=== PATIENT | male | born 1960 | race Caucasian/White ===

== ENCOUNTER 2022-07-31 10:18 | Emergency (ER) | payer OTHER, SELFPAY ==
[2022-07-31] VITALS (8 sets, daily range): BP systolic 122–147; BP diastolic 63–89; PULSE 69–121; RESP 17–24; TEMP 36.8; O2SAT 96–99; BMI 25.1; BMI 25.4
--- NOTE | 2022-07-31 11:10 | EXP.UTC ---
Discharge Plan Disposition Patient Disposition: Home, Self-Care Condition: Good Prescriptions Prescriptions: New hydrocodone-acetaminophen 5-325 mg tablet 1 tab PO Q6H PRN (Reason: pain) Qty: 20 0RF hydrocodone-acetaminophen 5-325 mg tablet 1 tab PO Q8H PRN (Reason: pain) Qty: 20 0RF Referrals Follow up/Referrals: Ken Bhatia MD [Emergency Provider] - See instructions Meeta Rao MD [Physician] - See instructions Activity Restrictions/Add. Instructions Additional Instructions/Restrictions: Return for worsening shortness of air or other concerns. Clinical Impressions Clinical Impression: Lung mass Discharge ED Provider: Ken Bhatia [facility] [place] <Olya Atwood APRN - Last Filed: 07/31/22 20:19> General Chief complaint: Chest Pain Stated complaint: Lung pain when breathing SOA Mode of Arrival: Ambulatory Source of Information: Patient Limitations: No Limitations Time Seen by Provider: 07/31/22 11:11 Description of Symptoms (Recalled from Triage Doc. by RN): PATIENT C/O LUNG PAIN WITH TAKING A DEEP BREATH, SOA, AND COUGH HEENT Symptoms (Recalled from RN notes): No Resp Symptoms (Recalled from RN notes): Yes Skin Symptoms (Recalled from RN notes): No MS Symptoms (Recalled from RN notes): No Functional Status (Recalled from RN notes): WNL History of Present Illness Provider Complaint: Patient states that he thinks he has been having lung pain on and off for a couple weeks on the left side of chest under his breast area States that he is an everyday smoker and has a little cough but cough no worse than normal and not coughing and denies pain with cough, States that he has been feeling more fatigued since it started and getting SOA at times States that he thinks it hurts worse when he takes a deep breath but not every time States that the pain was worse last night and kept him up most of the night Related Data Previous Rx's Medication Instructions Recorded hydrocodone 5 mg-acetaminophen 325 1 tab PO Q6H PRN pain #20 tabs 07/31/22 mg tablet hydrocodone 5 mg-acetaminophen 325 1 tab PO Q8H PRN pain #20 tabs 07/31/22 mg tablet Allergies Allergy/AdvReac Type Severity Reaction Status Date / Time No Known Allergies Allergy Verified 07/31/22 10:53 Worker's Comp Is this a Worker's Comp case?: No PFSH <Olya Atwood APRN - Last Filed: 07/31/22 20:19> PFSH Disclaimer: The information contained in this section may have been updated after the patient was seen, as this information can be updated by other users. Social History (Updated 07/31/22 @ 13:52 by Ken Bhatia MD) Smoking Status: Current every day smoker alcohol intake: never current occupational status: unemployed Travel in the last 8 weeks: None <Olya Atwood APRN - Last Filed: 07/31/22 20:19> ROS Obtained: Yes All systems reviewed & no additional complaints except as documented and Yes Systems reviewed as appropriate & no additional complaints except as documented Constitutional Constitutional: Reports system reviewed and no additional complaints, except as documented and Reports as per HPI <Ken Bhatia MD - Last Filed: 07/31/22 14:00> General General appearance: alert and in no apparent distress Respiratory Respiratory exam: Present normal lung sounds bilaterally Cardiovascular Cardiovascular exam: Present regular rate and normal rhythm Neurological Exam Neurological exam: Present alert and oriented X3 Medical Decision Making <Olya Atwood APRN - Last Filed: 07/31/22 20:19> Vital Signs: 07/31/22 10:45 Temperature 98.3 F Temperature Source Oral Pulse Rate [Left Brachial] 121 H Respiratory Rate 24 Blood Pressure [Left Arm] 138/80 Blood Pressure Mean [Left Arm] 99 Blood Pressure Source [Left Arm] Automatic Cuff Blood Pressure Position [Left Arm] Sitting 02 Sat by Pulse Oximetry 99 Oxygen Delivery Method Room Air Lab Data Result diagrams: 07/31/22 11:25 07/31/22 11:25 Or
--- NOTE | 2022-07-31 11:19 | XR_ITS ---
FINAL REPORT CLINICAL HISTORY: soa FINDINGS: A single PA view of the chest was obtained. There is no prior exam for comparison. The cardiac and mediastinal silhouettes are within normal limits. There is a pleural based left upper lobe mass measuring at least 11.5 cm. There is abnormal left hilar contour consistent with lymphadenopathy. Note is made of emphysema. There is no effusion or pneumothorax. No acute osseous abnormality is identified. IMPRESSION: Left upper lobe mass with left hilar lymphadenopathy. Reviewed, Interpreted and Dictated by Samia Parker MD Transcribed by Anastacia Lara Authenticated and [facility]
--- NOTE | 2022-07-31 11:21 | ECG_ITS ---
APPROVED REPORT Exam: Resting ECG HR:108 bpm ECG Measurements Heart Rate 108 AXES NH 154 P 66 QRSd 94 QRS 77 QT 305 T 66 QTc 369 Conclusion SINUS TACHYCARDIA ABNORMAL RHYTHM ECG UNCONFIRMED REPORT Electronically signed by : Gerson Xiao MD 07/31/2022 20:27:39
--- NOTE | 2022-07-31 11:23 | HMH.EDGENADL ---
Discharge Plan Disposition Patient Disposition: Home, Self-Care Condition: Good Prescriptions Prescriptions: New hydrocodone-acetaminophen 5-325 mg tablet 1 tab PO Q6H PRN (Reason: pain) Qty: 20 0RF hydrocodone-acetaminophen 5-325 mg tablet 1 tab PO Q8H PRN (Reason: pain) Qty: 20 0RF Referrals Follow up/Referrals: Ken Bhatia MD [Emergency Provider] - See instructions Meeta Rao MD [Physician] - See instructions Activity Restrictions/Add. Instructions Additional Instructions/Restrictions: Return for worsening shortness of air or other concerns. Clinical Impressions Clinical Impression: Lung mass Discharge ED Provider: Ken Bhatia General Adult HPI General Chief complaint: Chest Pain Stated complaint: Lung pain when breathing SOA Time Seen by Provider: 07/31/22 11:11 Mode of Arrival: Ambulatory Source of Information: Patient Limitations: No Limitations Description of Symptoms (Recalled from ER Triage Doc. by RN): PATIENT C/O LUNG PAIN WITH TAKING A DEEP BREATH, SOA, AND COUGH Related Data Previous Rx's Medication Instructions Recorded hydrocodone 5 mg-acetaminophen 325 1 tab PO Q6H PRN pain #20 tabs 07/31/22 mg tablet hydrocodone 5 mg-acetaminophen 325 1 tab PO Q8H PRN pain #20 tabs 07/31/22 mg tablet Allergies Allergy/AdvReac Type Severity Reaction Status Date / Time No Known Allergies Allergy Verified 07/31/22 10:53 [facility] Disclaimer: The information contained in this section may have been updated after the patient was seen, as this information can be updated by other users. Social History (Updated 07/31/22 @ 13:52 by Ken Bhatia MD) Smoking Status: Current every day smoker alcohol intake: never current occupational status: unemployed Travel in the last 8 weeks: None ROS Obtained: Yes All systems reviewed & no additional complaints except as documented Physical Exam General General appearance: alert and in no apparent distress Respiratory Respiratory exam: Present normal lung sounds bilaterally; Absent respiratory distress Cardiovascular Cardiovascular exam: Present regular rate and normal rhythm Neurological Exam Neurological exam: Present alert and oriented X3 Medical Decision Making Medical Records Medical records reviewed: Yes I reviewed the patient's medical records. Tony Inquiry Pt receiving controlled substance: No Tony was queried for this patient: No Vital Signs: 07/31/22 10:45 07/31/22 11:21 07/31/22 11:30 Temperature 98.3 F 98.2 F Temperature Source Oral Oral Pulse Rate 109 H Pulse Rate [Left Brachial] 121 H 114 H Respiratory Rate 24 21 18 Blood Pressure 127/71 Blood Pressure [Left Arm] 138/80 144/89 H Blood Pressure Mean 87 Blood Pressure Mean [Left Arm] 99 107 Blood Pressure Source [Left Arm] Automatic Cuff Automatic Cuff Blood Pressure Position [Left Arm] Sitting Supine 02 Sat by Pulse Oximetry 99 99 98 Oxygen Delivery Method Room Air 07/31/22 12:00 07/31/22 12:30 07/31/22 13:00 Temperature Temperature Source Pulse Rate 107 H 104 H 103 H Pulse Rate [Left Brachial] Respiratory Rate 20 Blood Pressure 135/79 143/70 H 122/81 Blood Pressure [Left Arm] Blood Pressure Mean 90 80 91 Blood Pressure Mean [Left Arm] Blood Pressure Source [Left Arm] Blood Pressure Position [Left Arm] 02 Sat by Pulse Oximetry 96 98 96 Oxygen Delivery Method 07/31/22 13:30 07/31/22 13:51 Temperature 98.3 F Temperature Source Oral Pulse Rate 100 H 69 Pulse Rate [Left Brachial] Respiratory Rate 17 Blood Pressure 124/76 147/63 H Blood Pressure [Left Arm] Blood Pressure Mean 89 Blood Pressure Mean [Left Arm] Blood Pressure Source [Left Arm] Blood Pressure Position [Left Arm] 02 Sat by Pulse Oximetry 96 Oxygen Delivery Method Room Air Lab Data Lab results reviewed: Yes I reviewed the patient's lab results. Lab Results 07/31/22 11:25: WBC 13.5 H, RBC 4.42 L, Hgb 11
--- NOTE | 2022-07-31 11:25 | HMH.EDGENADL ---
Discharge Plan Disposition Patient Disposition: Home, Self-Care Condition: Good Prescriptions Prescriptions: New hydrocodone-acetaminophen 5-325 mg tablet 1 tab PO Q6H PRN (Reason: pain) Qty: 20 0RF hydrocodone-acetaminophen 5-325 mg tablet 1 tab PO Q8H PRN (Reason: pain) Qty: 20 0RF Referrals Follow up/Referrals: Ken Bhatia MD [Emergency Provider] - See instructions Meeta Rao MD [Physician] - See instructions Activity Restrictions/Add. Instructions Additional Instructions/Restrictions: Return for worsening shortness of air or other concerns. Clinical Impressions Clinical Impression: Lung mass Discharge ED Provider: Ken Bhatia General Adult HPI General Chief complaint: Chest Pain Stated complaint: Lung pain when breathing SOA Time Seen by Provider: 07/31/22 11:11 Mode of Arrival: Ambulatory Source of Information: Patient Limitations: No Limitations Description of Symptoms (Recalled from ER Triage Doc. by RN): PATIENT C/O LUNG PAIN WITH TAKING A DEEP BREATH, SOA, AND COUGH History of Present Illness HPI narrative: Patient presents with a approximate 3 to 4-month history of left-sided intermittent pleuritic chest discomfort. He states this began after having been exposed to some dust. He describes symptoms as moderate to severe at times and lasting on that of few seconds to 1 to 2 minutes at a time. He denies there being an exertional component to it however it is worse with deep breaths. Is been no fever or productive cough. He is a smoker and has not seen a doctor several years he says Related Data Previous Rx's Medication Instructions Recorded hydrocodone 5 mg-acetaminophen 325 1 tab PO Q6H PRN pain #20 tabs 07/31/22 mg tablet hydrocodone 5 mg-acetaminophen 325 1 tab PO Q8H PRN pain #20 tabs 07/31/22 mg tablet Allergies Allergy/AdvReac Type Severity Reaction Status Date / Time No Known Allergies Allergy Verified 07/31/22 10:53 [facility] Disclaimer: The information contained in this section may have been updated after the patient was seen, as this information can be updated by other users. Social History Smoking Status: Current every day smoker alcohol intake: never current occupational status: unemployed Travel in the last 8 weeks: None ROS Obtained: Yes All systems reviewed & no additional complaints except as documented Physical Exam General General appearance: alert and in no apparent distress Head Head exam: atraumatic, normocephalic and normal inspection Eye Eye exam: Present normal appearance, PERRL and EOMI ENT ENT exam: Present normal exam, normal oropharynx, mucous membranes moist, TM's normal bilaterally and normal external ear exam Neck Neck exam: Present normal inspection, full ROM and trachea midline; Absent meningismus or lymphadenopathy Chest Chest inspection: Present other (Mild reproducible chest wall tenderness on the left side..) Respiratory Respiratory exam: Present normal lung sounds bilaterally; Absent respiratory distress Cardiovascular Cardiovascular exam: Present tachycardia Abdominal Exam Abdominal exam: Present soft and normal bowel sounds; Absent distention, tenderness or guarding Extremities Exam Extremities exam: Present normal inspection, full ROM and normal capillary refill; Absent calf tenderness Back Exam Back exam: Present normal inspection; Absent tenderness Neurological Exam Neurological exam: Present alert and oriented X3 Psychiatric Psychiatric exam: Present normal affect and normal mood Skin Skin exam: Present warm, dry, intact and normal color Lymphatic Lymphatic Findings: no adenopathy Medical Decision Making Tony Inquiry Pt receiving controlled substance: Yes Tony was queried for this patient: No Risks and benefits of using a controlled substance: were discussed with pt by me Vital Signs: 07/31/22 10:45 07/31/22 11:21 07/31/22 11:30 Temperat
[2022-07-31 11:34] LABS: Basophils # 0.1 K/mm3 (0-0.2); Basophils % 0.5 % (0.1-2.0); Eosinophils # 0.7 K/mm3 (0.0-0.4); Hematocrit 35.5 % (42.0-52.0); Hemoglobin 11.5 g/dL (14.1-18.0); Lymphocytes # 1.7 K/mm3 (0.7-4.5); Lymphocytes % 12.3 % (10-50); Mean Corpuscular HGB Conc 32.4 g/dL (31.8-35.4); Mean Corpuscular Hemoglobin 26.1 pg (27.0-31.2); Mean Corpuscular Volume 80.5 fl (80-94); Mean Platelet Volume 7.3 fl (7.4-10.4); Monocytes # 0.5 K/mm3 (0.1-1.0); Monocytes % 3.8 % (1.7-9.3); Neutrophils # 10.6 K/mm3 (1.8-7.8); Neutrophils % 78.3 % (37.0-80.0); Platelet Count 500 K/mm3 (142-424); Red Blood Count 4.42 M/mm3 (4.60-6.20); Red Cell Distribution Width 15.1 % (11.5-17.5); White Blood Count 13.5 K/mm3 (4.8-10.8)
[2022-07-31 11:43] LABS: Alanine Aminotransferase 49 U/L (12-78); Albumin Level 3.9 g/dl (3.5-5.0); Alkaline Phosphatase 80 U/L (38-126); Anion Gap 6.1 mEq/L (5-15); Aspartate Amino Transferase 25 U/L (17-59); Bilirubin,Total 0.4 mg/dl (0.2-1.3); Blood Urea Nitrogen 12 mg/dl (9-20); Carbon Dioxide 28 mmol/L (22.0-30.0); Chloride 102 mmol/L (98-107); Creatinine Clearance Estimated 146 mL/min (50-200); Estimated Glomerular Filt Rate 138 ml/min (>60); GFR (African American) 167 ML/MIN (>60); Globulin 3.9 g/dL (1.3-3.2); Glucose 226 mg/dl (74-100); Potassium 4.1 mmoL/L (3.5-5.1); Sodium 132 mmol/L (136-145); Total Protein,Serum 7.8 g/dl (6.3-8.2)
[2022-07-31 11:48] LABS: D-Dimer 0.76 ug/mL (0.0-0.5)
--- NOTE | 2022-07-31 11:56 | CT_ITS ---
FINAL REPORT TECHNIQUE: Axial imaging of the chest is obtained after the administration of contrast. 3-D MIP reformatted images were also obtained and reviewed per PE protocol. This study was performed with techniques to keep radiation doses as low as reasonably achievable (ALARA). Individualized dose reduction techniques using automated exposure control or adjustment of mA and/or kV according to the patient's size were employed. CLINICAL HISTORY: soa, lung mass, r/o pe FINDINGS: The pulmonary arteries are well filled. There is no evidence of pulmonary embolus. There is no aortic dissection or intimal flap. There is no axillary adenopathy. There is confluent AP window and left hilar lymphadenopathy measuring 7 cm. No right hilar or anterior mediastinal adenopathy is identified. There is a large mass in the posterior left upper lobe measuring 9 x 8 cm consistent with malignancy. There are 2 additional left upper lobe pulmonary nodules. The larger of the two is pleural based measuring 10 mm. There is a nodule opacity at the right apex, likely scar. There is a 6 mm right lower lobe nodule well seen on image 86. There are changes of emphysema.. There is no pleural or pericardial effusion. Limited evaluation of the upper abdomen is without acute abnormality. There is no acute osseous abnormality. IMPRESSION: No evidence of pulmonary embolism or aortic dissection. 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 Bilateral pulmonary nodules, metastases not excluded. Reviewed, Interpreted and Dictated by Samia Parker MD Transcribed by Anastacia Lara Authenticated and [facility]
[2022-07-31 12:00] LABS: Troponin I < 0.01 ng/ml (0.00-0.034)
--- NOTE | 2022-07-31 12:12 | PC.NURSE ---
patient to CT
--- NOTE | 2022-07-31 12:20 | PC.NURSE ---
rounded on pt, no needs at this time. blanket offered, pt refused at this time
--- NOTE | 2022-07-31 12:25 | PC.NURSE ---
visitor came back to room with pt
--- NOTE | 2022-07-31 12:48 | PC.NURSE ---
pt stating he is having some pain, MD aware and ordering pain medicine. Non narcotic per pt
--- NOTE | 2022-07-31 13:30 | PC.NURSE ---
visitor coming back to pt room
--- NOTE | 2022-07-31 13:33 | PC.NURSE ---
contacting Dr. Adames for consult
--- NOTE | 2022-07-31 13:38 | PC.NURSE ---
speaking with Dr. Rao
== END 2022-07-31 13:58 | disposition home or self-care (01) ==
LOC: UTC 10:32 → ER 11:14
PROVIDERS: Emergency Provider Emergency Medicine
DX: R91.8 Other nonspecific abnormal finding of lung field (principal); R07.81 Pleurodynia; R06.02 Shortness of breath; R05.9 Cough, unspecified; R07.89 Other chest pain; F17.210 Nicotine dependence, cigarettes, uncomplicated
CPT/HCPCS: 71045; 71275; 80053; 84484; 85025; 85378; 93005; 96374; 99285; Q9967

== ENCOUNTER → 2022-08-07 12:59 | Outpatient (CLI) | payer OTHER, SELFPAY ==
[2022-08-07 13:46] LABS: Basophils # 0.2 K/mm3 (0-0.2); Basophils % 1.2 % (0.1-2.0); Eosinophils # 0.7 K/mm3 (0.0-0.4); Eosinophils % 4.4 % (0.1-12.0); Hematocrit 35.5 % (42.0-52.0); Hemoglobin 11.4 g/dL (14.1-18.0); Lymphocytes # 1.8 K/mm3 (0.7-4.5); Lymphocytes % 12.3 % (10-50); Mean Corpuscular Hemoglobin 26.2 pg (27.0-31.2); Mean Corpuscular Volume 81.8 fl (80-94); Mean Platelet Volume 7.4 fl (7.4-10.4); Monocytes # 0.7 K/mm3 (0.1-1.0); Monocytes % 4.9 % (1.7-9.3); Neutrophils # 11.4 K/mm3 (1.8-7.8); Neutrophils % 77.2 % (37.0-80.0); Platelet Count 603 K/mm3 (142-424); Red Blood Count 4.34 M/mm3 (4.60-6.20); White Blood Count 14.7 K/mm3 (4.8-10.8)
[2022-08-07 13:56] LABS: INR 1.22 (0.9-1.1)
[2022-08-07 14:00] LABS: Sodium 135 mmol/L (136-145)
[2022-08-07 14:02] LABS: Chol/HDL Ratio 6.2 (1-3.5); Cholesterol 185 mg/dl (140-200); HDL Cholesterol 30 mg/dl (40-60); Triglycerides 129 mg/dl (30-150); VLDL Cholesterol 26 mg/dL (0-40)
[2022-08-07 14:02] LABS: Alanine Aminotransferase 35 U/L (12-78); Albumin Level 3.9 g/dl (3.5-5.0); Albumin/Globulin Ratio 1.2 (1.1-1.8); Alkaline Phosphatase 85 U/L (38-126); Anion Gap 12.3 mEq/L (5-15); Aspartate Amino Transferase 22 U/L (17-59); Bilirubin,Total 0.4 mg/dl (0.2-1.3); Blood Urea Nitrogen 8 mg/dl (9-20); Calcium 10.8 mg/dl (8.4-10.2); Carbon Dioxide 29 mmol/L (22.0-30.0); Chloride 98 mmol/L (98-107); Estimated Glomerular Filt Rate 138 ml/min (>60); GFR (African American) 167 ML/MIN (>60); Globulin 3.2 g/dL (1.3-3.2); Glucose 123 mg/dl (74-100); Potassium 4.3 mmoL/L (3.5-5.1); Total Protein,Serum 7.1 g/dl (6.3-8.2)
[2022-08-07 14:13] LABS: Direct LDL Cholesterol 121.44 mg/dL (100-129); Hemoglobin A1C 6.8 % (4.0-6.0)
[2022-08-07 14:33] LABS: Thyroid Stimulating Hormone 1.47 uIU/mL (0.465-4.68)
== END ==
PROVIDERS: PCP Nurse Practitioner Family; Visit Provider Internal Medicine Pulmonary Disease
DX: J45.909 Unspecified asthma, uncomplicated (principal); J84.9 Interstitial pulmonary disease, unspecified; R59.0 Localized enlarged lymph nodes; R91.8 Other nonspecific abnormal finding of lung field; D64.9 Anemia, unspecified; Z13.220 Encounter for screening for lipoid disorders; Z13.1 Encounter for screening for diabetes mellitus; G47.00 Insomnia, unspecified; Z79.899 Other long term (current) drug therapy
CPT/HCPCS: 36415; 80053; 80061; 83036; 84443; 85025; 85610

== ENCOUNTER → 2022-08-21 12:34 | Outpatient (CLI) | payer OTHER, SELFPAY ==
[2022-08-21 13:25] VITALS: PULSE 103; PULSE 108
== END ==
PROVIDERS: PCP Nurse Practitioner Family; Visit Provider Internal Medicine Pulmonary Disease
DX: R06.09 Other forms of dyspnea (principal)
CPT/HCPCS: 94060; 94618; 94640; 94727; 94729

== ENCOUNTER 2022-08-27 08:28 | Day surgery (SDC) | payer OTHER, SELFPAY ==
[2022-08-24 12:18] VITALS: BMI 26.4
[2022-08-27] VITALS (12 sets, daily range): BP systolic 99–136; BP diastolic 50–88; PULSE 94–109; RESP 16–20; TEMP 36.1–43; O2SAT 91–96
[2022-08-27 09:05] LABS: POC Glucose,Bedside 154 (70-110)
--- NOTE | 2022-08-27 09:20 | EXP.ANES.CKL ---
[facility] Disclaimer: The information contained in this section may have been updated after the patient was seen, as this information can be updated by other users. Medical History Diabetes mellitus, type 2 Dyspnea on exertion Encounter for screening for diabetes mellitus Hilar lymphadenopathy Mediastinal lymphadenopathy Pulmonary emphysema Smoking greater than 30 pack years Surgical History No history of previous surgery No significant past surgical history Family History Grandmother Cancer Mother COPD (chronic obstructive pulmonary disease) Cancer Social History (Updated 08/27/22 @ 08:57 by Anastasia Barrett RN) Smoking Status: Current every day smoker tobacco type: cigarettes packs per day: 2 years smoked: 43 alcohol intake: current substance use type: denies use current occupational status: unemployed Travel in the last 8 weeks: None [facility] Anesthesia Checklist Structural Data Admitted From: Home Planned Operative Procedure/s: bronchoscopy Consent for Planned Operative Procedure(s) Verified: Yes NPO Status Verified Time NPO: 00:00 Additional verifications Anesthesia Reactions: No Hx Blood Transfusions: No Blood Transfusion Reaction: No Airway Assessment C-Spine Mobility Assessed: Yes TMJ Mobility Assessed: Yes Dentition: Dentures-good fit Neurological Assessment Level of Consciousness: Awake, Alert and Appropriate Anesthesia Plan Anesthesia Risk discussed: Yes Anesthesia Plan: Verified ASA Class: II Anesthesia Type: General
--- NOTE | 2022-08-27 11:41 | XR_ITS ---
FINAL REPORT CLINICAL HISTORY: BRONCHOSCOPY FINDINGS: A portable view of the chest was obtained. Comparison is made to a prior exam dated July 31, 2022. Cardiac and mediastinal silhouettes are within normal limits. A left upper lobe masslike opacity has increased in size. There is no pleural effusion or pneumothorax. IMPRESSION: Increase in size in the left upper lobe masslike opacity. No pneumothorax. Reviewed, Interpreted and Dictated by Samia Parker MD Transcribed by Reji Carlin Authenticated and [facility]
--- NOTE | 2022-08-27 12:00 | P.PNANES_ITS ---
[facility] Anesthesia Record Part I Anesthesia Record I Intake, IV Amount: 800 Estimated blood loss (mL): 0 Urine output (mL): 0 Blood Pressure: 114/88 SaO2: 92 Pulse Rate: 105 Respiratory Rate: 16 Temperature: 97.8 F Patient is:: Drowsy and Stable Stable to PACU at:: 11:55
--- NOTE | 2022-08-27 12:00 | XR_ITS ---
FINAL REPORT CLINICAL HISTORY: BRONCHOSCOPY IN OR, fluoro time 3:18 FINDINGS: Fluoroscopic guidance was provided for the operating services. Two spot films were provided. 3 minutes 18 seconds of fluoroscopy time was utilized. IMPRESSION: 3 minutes 18 seconds of fluoroscopy time. Reviewed, Interpreted and Dictated by Samia Parker MD Transcribed by Reji Carlin Authenticated and [facility]
--- NOTE | 2022-08-27 12:20 | P.PCN_ITS ---
Procedure: Date: 08/27/22 Patient Date of :: 1960 Procedure Performed:: Bronchoscopy airway examination, transbronchial biopsy and EBUS FNA Indications:: Lung mass and lymphadenopathy Performing Provider:: Meeta Rao MD Referring Provider:: Dr:Leda Koenig APRN Sedation:: General anesthesia Procedure:: Bronchoscopy airway examination, transbronchial biopsy and EBUS FNA A clean EBUS bronchoscopy was advanced to the ET tube and lymph node surveillance was performed for patient noted to have lymphadenopathy at stations 10 R and 10 L. 5 passes were performed at each lymph node station, pathologist at bedside, confirmed adequate lymphoid tissue. No evidence of malignancy noted at station 10 R. Malignant cells seen on 10 L. Awaiting final results. EBUS bronchoscopy was retracted and a clean DIAGNOSTIC bronchoscopy was advanced through the ET tube and airways were examined up to subsegmental bronchi. Near complete occlusion of the left upper lobe bronchi from the mass compressing the airway noted. Airways otherwise appear normal. Bronchoalveolar lavage was performed in the LEFT UPPER LOBE with instillation of 60 cc normal saline with return of 10 cc back. BAL fluid was only sent for cytopathologic examination Transbronchial biopsy was performed in the LEFT UPPER LOBE with a total of 4 biopsies performed,and were sent in formalin for cytopathologic examination. Bi opsies were performed with difficulty as the bronchoscopy cannot be passed beyond the lung mass near completely occluding the left upper lobe bronchi. No biopsies were sent for bacterial fungal AFB stain and cultures. Patient tolerated the procedure with no immediate acute complications. Chest x-ray postprocedure reviewed, the left upper tumors appeared to be increasing in size from his most recent chest x-ray less than 4 weeks ago. Concerning for small cell lung cancer. Rapid onsite examination, not confirmatory. Await for final pathology results. We will follow the patient in pulmonary clinic in 7 to 10 days. Findings:: Please see the procedure note Recommendations:: Please see the procedure note. Follow in 5 days for final results Complications:: No acute immediate complications Estimated blood obtained (mL): 10
--- NOTE | 2022-08-27 13:39 | EXP.ANES.II ---
[facility] Anesthesia Record Part II Anesthesia Record Part II Discharge Time: 12:25 Destination: Surgical Day Care (OP Surgery) PACU nurse assessment reviewed?: Yes Patient Condition:: Good Anesthesia Complications:: None Swallowing reflex intact?: Yes Cyanosis?: No Blood Pressure: 99/50 Pulse Rate: 102 Temperature: 97.8 F Mental Status: Alert & Oriented Pain level:: 0 Nausea and/or vomitting:: None Intake, IV Amount: 0
== END 2022-08-27 13:24 | disposition home or self-care (01) ==
PROVIDERS: PCP Nurse Practitioner Family; Visit Provider Internal Medicine Pulmonary Disease
PROC: (CPT 31628; principal; 2022-08-27 10:00)
DX: C34.12 Malignant neoplasm of upper lobe, left bronchus or lung (principal); F17.210 Nicotine dependence, cigarettes, uncomplicated; Z79.899 Other long term (current) drug therapy; R59.1 Generalized enlarged lymph nodes
CPT/HCPCS: 31628; 31624; 31653; 71045; 82962; J2405

== ENCOUNTER 2022-08-29 14:28 | Emergency (ER) | payer OTHER, SELFPAY ==
[2022-08-29] VITALS (7 sets, daily range): BP systolic 123–156; BP diastolic 69–99; PULSE 100–119; RESP 20; TEMP 36.7; O2SAT 94–97; BMI 26.4
--- NOTE | 2022-08-29 14:27 | ECG_ITS ---
APPROVED REPORT Exam: Resting ECG HR:117 bpm ECG Measurements Heart Rate 117 AXES NH 128 P 67 QRSd 93 QRS 76 QT 284 T 74 QTc 354 Conclusion SINUS TACHYCARDIA ABNORMAL RHYTHM ECG UNCONFIRMED REPORT Electronically signed by : Gerson Xiao MD 08/29/2022 23:38:08
--- NOTE | 2022-08-29 14:31 | XR_ITS ---
FINAL REPORT CLINICAL HISTORY: Precordial chest pain FINDINGS: A portable view of the chest was obtained. Comparison is made to a prior exam dated 08/27/2022. Cardiac and mediastinal silhouettes are within normal limits. A left upper lobe mass is unchanged. Airspace disease in long the superior aspect of the mass within the left upper lobe is increased. Airspace disease inferior appears stable. There is no pleural effusion or pneumothorax. IMPRESSION: Worsening left upper lobe airspace disease along the superior aspect of the mass. Reviewed, Interpreted and Dictated by Samia Parker MD Transcribed by Breann Soni Authenticated and [facility]
[2022-08-29 14:59] LABS: Basophils # 0.1 K/mm3 (0-0.2); Basophils % 0.5 % (0.1-2.0); Eosinophils # 0.8 K/mm3 (0.0-0.4); Eosinophils % 4.4 % (0.1-12.0); Hematocrit 33.4 % (42.0-52.0); Hemoglobin 10.1 g/dL (14.1-18.0); Lymphocytes # 1.6 K/mm3 (0.7-4.5); Lymphocytes % 9.3 % (10-50); Mean Corpuscular HGB Conc 30.4 g/dL (31.8-35.4); Mean Corpuscular Hemoglobin 24.8 pg (27.0-31.2); Mean Corpuscular Volume 81.5 fl (80-94); Mean Platelet Volume 7.2 fl (7.4-10.4); Neutrophils # 13.6 K/mm3 (1.8-7.8); Neutrophils % 79.8 % (37.0-80.0); Platelet Count 603 K/mm3 (142-424); Red Cell Distribution Width 15.8 % (11.5-17.5); White Blood Count 17.1 K/mm3 (4.8-10.8)
--- NOTE | 2022-08-29 15:00 | HMH.EDGENADL ---
Discharge Plan Disposition Patient Disposition: Home, Self-Care Condition: Fair Prescriptions Prescriptions: New amoxicillin-pot clavulanate 875-125 mg tablet 1 tab PO BID Qty: 20 0RF hydrocodone-acetaminophen 5-325 mg tablet 1 tab PO Q6H PRN (Reason: pain) Qty: 10 0RF No Action albuterol sulfate 90 mcg/actuation HFA aerosol inhaler 2 inh inhalation Q6H PRN (Reason: shortness of breath or wheezing) 90 Days Qty: 8.5 2RF ibuprofen 800 mg tablet 800 mg PO Q8H PRN (Reason: pain) Qty: 90 1RF metformin 500 mg tablet 500 mg PO DAILY docusate sodium 50 mg capsule 50 mg PO DAILY Stiolto Respimat 2.5-2.5 mcg/actuation mist 2 puff inhalation BID Referrals Follow up/Referrals: Leda Hernandez APRN [Primary Care Provider] - See instructions Clinical Impressions Clinical Impression: Obstructive pneumonia, Lung mass Instructions Patient Instructions: Pneumonia-Adult Discharge ED Provider: Bruno Ortiz General Adult HPI General Chief complaint: PAIN Stated complaint: chest pain Time Seen by Provider: 08/29/22 14:30 Mode of Arrival: Ambulatory Source of Information: Patient Limitations: No Limitations Description of Symptoms (Recalled from ER Triage Doc. by RN): pt to ed c/o lung pain. pt states he had a recent biopsy done for probable lung cancer. pt states he has had a dry mouth x2 days. History of Present Illness HPI narrative: 61yo M presents the ER secondary to left-sided lung pain. Reports symptoms began today. Recently underwent biopsy for probable lung cancer but has not received results. Patient also reports he developed liquid stool today. Denies fever. Denies history of heart disease. States his pain does not radiate or migrate. Related Data Home Medications Medication Instructions Recorded Confirmed docusate sodium 50 mg capsule 50 mg PO DAILY constipation 08/24/22 08/27/22 metformin 500 mg tablet 500 mg PO DAILY pre-diabetes 08/24/22 08/27/22 tiotropium 2.5 mcg-olodaterol 2.5 2 puff inhalation BID soa 08/24/22 08/27/22 mcg/actuation mist for inhalation (Stiolto Respimat) Previous Rx's Medication Instructions Recorded albuterol sulfate 90 mcg/actuation 2 inh inhalation Q6H PRN shortness 08/07/22 aerosol inhaler of breath or wheezing 90 days #8.5 grams ibuprofen 800 mg tablet 800 mg PO Q8H PRN pain #90 tabs 08/07/22 amoxicillin 875 mg-potassium 1 tab PO BID #20 tabs 08/29/22 clavulanate 125 mg tablet hydrocodone 5 mg-acetaminophen 325 1 tab PO Q6H PRN pain #10 tabs 08/29/22 mg tablet Allergies Allergy/AdvReac Type Severity Reaction Status Date / Time No Known Allergies Allergy Verified 08/27/22 08:41 [facility] Disclaimer: The information contained in this section may have been updated after the patient was seen, as this information can be updated by other users. Medical History Diabetes mellitus, type 2 Dyspnea on exertion Encounter for screening for diabetes mellitus Hilar lymphadenopathy Mediastinal lymphadenopathy Pulmonary emphysema Smoking greater than 30 pack years Surgical History No history of previous surgery No significant past surgical history Family History Grandmother Cancer Mother COPD (chronic obstructive pulmonary disease) Cancer Social History Smoking Status: Former smoker years smoked: 43 alcohol intake: current substance use type: denies use current occupational status: unemployed Travel in the last 8 weeks: None ROS Obtained: Yes Systems reviewed as appropriate & no additional complaints except as documented Physical Exam General General appearance: alert Head Head exam: atraumatic Eye Eye exam: Present normal appearance Neck Neck exam: Present trachea midline Chest Chest inspection: Present nor
--- NOTE | 2022-08-29 15:09 | PC.NURSE ---
rounded on pts room and pt asked for a warm blanket and a pillow. went an got both items and asked if there was anything else we could do for him' and he stated not at this time
[2022-08-29 15:12] LABS: Alanine Aminotransferase 41 U/L (12-78); Albumin Level 3.5 g/dl (3.5-5.0); Alkaline Phosphatase 65 U/L (38-126); Anion Gap 11.9 mEq/L (5-15); Aspartate Amino Transferase 24 U/L (17-59); Bilirubin,Total 0.6 mg/dl (0.2-1.3); Blood Urea Nitrogen 9 mg/dl (9-20); Calcium 9.6 mg/dl (8.4-10.2); Carbon Dioxide 29 mmol/L (22.0-30.0); Chloride 93 mmol/L (98-107); Creatinine Clearance Estimated 172 mL/min (50-200); Estimated Glomerular Filt Rate 170 ml/min (>60); GFR (African American) 206 ML/MIN (>60); Globulin 3.5 g/dL (1.3-3.2); Glucose 179 mg/dl (74-100); Potassium 3.9 mmoL/L (3.5-5.1); Sodium 130 mmol/L (136-145)
[2022-08-29 15:25] LABS: NT Pro Brain Natriuretic Pep. 214 pg/mL (0-125)
[2022-08-29 15:26] LABS: Troponin I < 0.01 ng/ml (0.00-0.034)
[2022-08-29 15:27] LABS: MANUAL DIFFERENTIAL MANUAL DIFFERENTIAL (MANUAL DIFF)
--- NOTE | 2022-08-29 15:46 | CT_ITS ---
FINAL REPORT TECHNIQUE: Axial imaging of the chest is obtained after the administration of contrast. 3-D MIP reformatted images were also obtained and reviewed per PE protocol. CLINICAL HISTORY: pain, sob FINDINGS: The pulmonary arteries are well filled. There is no evidence of pulmonary embolus. There is no aortic dissection or intimal flap. There is no axillary lymphadenopathy. Precarinal lymph nodes are stable. There has been interval increase in size in a large left hilar mass that is in continuity with a subpleural left upper lobe mass which has also increased in size. Abnormal soft tissue encases and narrows the left upper and lower lobe pulmonary artery. There is a new small left pleural effusion. There is no right pleural effusion. There is no pericardial effusion. There is emphysema. Right apical scarring is stable. There is been interval development of airspace disease in the left upper lobe. There has been interval increase in a left upper lobe satellite nodule which measures 13 mm and was 10 mm. Lingular airspace and ground-glass opacity is new. There is a 5 mm right lower lobe nodule on image 74 which is unchanged. Limited evaluation of the upper abdomen is without acute abnormality. There is no acute osseous abnormality. IMPRESSION: 1. No evidence of pulmonary embolism or aortic dissection. 2. Interval increase in size of large left upper lobe mass and left hilar mass. 3. New ground-glass and airspace opacities in the left upper lobe could be related to pneumonia or hemorrhage given recent biopsy. 4. Interval increase in size of a satellite nodule in the left upper lobe. Reviewed, Interpreted and Dictated by Samia Parker MD Transcribed by Breann Soni Authenticated and [facility]
--- NOTE | 2022-08-29 16:01 | PC.NURSE ---
pt to ct
[2022-08-29 16:11] LABS: Hypochromasia 1+; Lymphocytes % 23 % (10-50); Monocytes % 5 % (2-9); Neutrophils % 72 % (42-76); Platelet Estimate Moderate Increase; Total Cells Counted 100
== END 2022-08-29 18:01 | disposition home or self-care (01) ==
PROVIDERS: Emergency Provider Family Medicine; PCP Nurse Practitioner Family
DX: J18.9 Pneumonia, unspecified organism (principal); C34.10 Malignant neoplasm of upper lobe, unspecified bronchus or lung; E87.1 Hypo-osmolality and hyponatremia; R00.0 Tachycardia, unspecified; R07.9 Chest pain, unspecified
CPT/HCPCS: 71045; 71275; 80053; 83880; 84484; 85007; 85025; 93005; 99285; Q9967

== ENCOUNTER → 2022-08-31 11:53 | Outpatient (CLI) | payer OTHER, SELFPAY | PROVIDERS: Visit Provider Internal Medicine Pulmonary Disease | DX: R93.89 Abnormal findings on diagnostic imaging of other specified body structures (principal); B96.1 Klebsiella pneumoniae [K. pneumoniae] as the cause of diseases classified elsewhere | CPT/HCPCS: 87070; 87077; 87186; 87205 ==

== ENCOUNTER 2022-12-05 19:18 | Emergency (ER) | payer OTHER, SELFPAY ==
[2022-12-05 19:19] VITALS: BP 112/61; PULSE 127; RESP 16; TEMP 36.8; O2SAT 94; BMI 26.6
[2022-12-05 20:00] VITALS: PULSE 120; RESP 20; O2SAT 94
--- NOTE | 2022-12-05 20:02 | XR_ITS ---
PROCEDURE INFORMATION: Exam: XR Chest Exam date and time: 12/05/2022 8:15 PM Age: 62 years old Clinical indication: Other: Weakness; Patient HX: HX lung cancer; Additional info: Weakness and lung cancer TECHNIQUE: Imaging protocol: Radiologic exam of the chest. Views: 2 views. COMPARISON: CR XR CHEST PORTABLE 08/29/2022 2:55 PM FINDINGS: Lungs: Persistent 13 cm mass in the posterior left upper chest, without significant enlargement compared with the previous exam from 08/29/2022, consistent with the history of known lung cancer. A 2.3 cm nodule projected superomedial to this on the frontal view likely corresponding with the small satellite nodule reported on the previous CTA exam, either enlarged or better seen compared with the prior portable chest x-ray from 08/29/2022. Persistent or recurrent hazy airspace disease in the central left lung which could be due to lymphangitic spread of cancer or superimposed pneumonia. No discrete mass or consolidation is seen in the right lung. Pleural spaces: Asymmetric left superolateral pleural thickening abutting the mass, which may be due to extension of malignancy into the pleural space, or related to adjacent left upper rib trauma. No layering pleural effusion. No pneumothorax. Heart/Mediastinum: The cardiac silhouette is normal. Bones/joints: There are spinal degenerative changes, with multilevel disc narrrowing and spondylosis. There is a new or better seen fracture of the posterolateral left 6th rib abutting the mass, which could be posttraumatic or pathologic fracture. The fracture is slightly displaced. IMPRESSION: 1. 13 cm posterior upper left chest mass consistent with history of known lung cancer, not significantly enlarged compared with 08/29/2022. 2. Adjacent satellite nodule of 2.3 cm appears more prominent compared with the prior exam. 3. Hazy airspace disease in the central left lung which may be due to lymphangitic spread of cancer, or superimposed pneumonia. 4. New, mildly displaced posterolateral left 6th rib fracture compared with the prior exam. 5. Pleural thickening in the upper lateral left chest which may be due to extension of malignancy into the pleural space, or due to the adjacent rib fracture. No significant layering pleural effusion or pneumothorax.
--- NOTE | 2022-12-05 20:05 | HMH.EDWEAK ---
Discharge Plan Disposition Patient Disposition: Home, Self-Care Chief Complaint: Weakness Prescriptions Prescriptions: No Action nystatin 100,000 unit/mL suspension 5 ml PO QID 10 Days Qty: 200 0RF Rx Instructions: swish and swallow albuterol sulfate 90 mcg/actuation HFA aerosol inhaler 2 inh inhalation Q6H PRN (Reason: shortness of breath or wheezing) 90 Days Qty: 8.5 2RF prochlorperazine maleate 10 mg tablet 10 mg PO BID codeine-guaifenesin 10-100 mg/5 mL liquid 5 ml PO QID Patient Comments: TAKE 5 ML BY MOUTH 4 (FOUR) TIMES A DAY IF NEEDED FOR COUGH FOR UP TO 10 DAYS. (DME) FreeStyle Lite Strips Strip See Rx Instructions .ROUTE .COMPLEX Rx Instructions: USE DIRECTED (DME) blood-glucose meter [FreeStyle Lite Meter] Kit See Rx Instructions .ROUTE Rx Instructions: As directed (DME) lancets [FreeStyle Lancets] 28 gauge misc See Rx Instructions .ROUTE Rx Instructions: As directed isopropyl alcohol 70 % swab 1 ea topical QID docusate sodium 50 mg capsule 50 mg PO DAILY hydrocodone-acetaminophen 5-325 mg tablet 1 tab PO Q6H PRN (Reason: pain) Qty: 10 0RF Referrals Follow up/Referrals: Leda Hernandez APRN [Primary Care Provider] - See instructions Clinical Impressions Clinical Impression: Lung mass, Acute dyspnea Instructions Patient Instructions: DI for Shortness of Breath Discharge ED Provider: Cassi (ED),Evert Santoyo Weakness HPI <Curtis Barcenas MD - Last Filed: 12/05/22 20:07> General Chief complaint: Weakness Stated complaint: weak Time Seen by Provider: 12/05/22 19:57 Mode of Arrival: Ambulatory Source of Information: Patient Limitations: No Limitations Description of Symptoms (Recalled from ER Triage Doc. by RN): pt reports to ED with generalized weakness and fatigue that occured after his immunotherapy infusion on saturday. pt has lung cancer and is being treated at [facility] by Dr. Astudillo. pt reports he has been feeling this way since saturday but hasnt had any relief. pt also reports chronic left rib pain tht he rates an 8 at this time because he is out of his pain medication History of Present Illness HPI Narrative: 62-year-old white male presents with weakness dizziness and diarrhea. The patient is being treated for lung cancer at the [facility] and has completed his radiation therapy but has reacted to every chemotherapy agents that he has been given. They have elected to begin immunotherapy which she received Saturday and he has been sick ever since. He is not nauseated but is having diarrhea a lot of weakness and funky feeling. He reports that he knows of no other allergies besides the chemotherapy but he has Stiolto Respimat listed on his chart. Related Data Home Medications Medication Instructions Recorded Confirmed docusate sodium 50 mg capsule 50 mg PO DAILY constipation 08/24/22 12/05/22 blood sugar diagnostic (FreeStyle 12/05/22 12/05/22 Lite Strips) blood-glucose meter (FreeStyle 12/05/22 12/05/22 Lite Meter kit) codeine 10 mg-guaifenesin 100 mg/5 5 ml PO QID Cough 12/05/22 12/05/22 mL oral liquid isopropyl alcohol 70 % topical swab 1 ea topical QID . 12/05/22 12/05/22 lancets 28 gauge (FreeStyle 12/05/22 12/05/22 Lancets) prochlorperazine maleate 10 mg 10 mg PO BID Nausea 12/05/22 12/05/22 tablet Previous Rx's Medication Instructions Recorded hydrocodone 5 mg-acetaminophen 325 1 tab PO Q6H PRN pain #10 tabs 08/29/22 mg tablet nystatin 100,000 unit/mL oral 5 ml PO QID oral thrush 10 days 09/04/22 suspension #200 mL albuterol sulfate 90 mcg/actuation 2 inh inhalation Q6H PRN shortness 12/05/22 aerosol inhaler of breath or wheezing 90 days #8.5 grams Allergies Allergy/AdvReac Type Severity Reaction Status Date / Time olodaterol Allergy Intermediate Other Verified 09/04/22 09:12 [From Stiolto Respimat] tiotropium Allergy Inter
--- NOTE | 2022-12-05 20:08 | ECG_ITS ---
APPROVED REPORT Exam: Resting ECG HR:115 bpm ECG Measurements Heart Rate 115 AXES MI 132 P 59 QRSd 96 QRS 70 QT 307 T 57 QTc 375 Conclusion SINUS TACHYCARDIA ABNORMAL RHYTHM ECG UNCONFIRMED REPORT Electronically signed by : Gerson Xiao MD 12/06/2022 21:14:58
[2022-12-05 20:20] LABS: Basophils % 0.2 % (0.1-2.0); Eosinophils # 0.2 K/mm3 (0.0-0.4); Eosinophils % 2.8 % (0.1-12.0); Hematocrit 29.3 % (42.0-52.0); Hemoglobin 9.3 g/dL (14.1-18.0); Lymphocytes # 0.7 K/mm3 (0.7-4.5); Lymphocytes % 10.1 % (10-50); Mean Corpuscular HGB Conc 31.8 g/dL (31.8-35.4); Mean Corpuscular Hemoglobin 26.1 pg (27.0-31.2); Mean Corpuscular Volume 82.1 fl (80-94); Monocytes # 0.5 K/mm3 (0.1-1.0); Monocytes % 6.5 % (1.7-9.3); Neutrophils # 5.6 K/mm3 (1.8-7.8); Neutrophils % 80.4 % (37.0-80.0); Platelet Count 502 K/mm3 (142-424); Red Blood Count 3.57 M/mm3 (4.60-6.20); Red Cell Distribution Width 17.8 % (11.5-17.5)
[2022-12-05 20:23] LABS: Anion Gap 15.1 mEq/L (5-15); Blood Urea Nitrogen 16 mg/dl (9-20); Calcium 8.5 mg/dl (8.4-10.2); Carbon Dioxide 23 mmol/L (22.0-30.0); Chloride 99 mmol/L (98-107); Creatinine Clearance Estimated 122 mL/min (50-200); Estimated Glomerular Filt Rate 115 ml/min (>60); GFR (African American) 139 ML/MIN (>60); Glucose 212 mg/dl (74-100); Potassium 4.1 mmoL/L (3.5-5.1); Sodium 133 mmol/L (136-145)
[2022-12-05 20:41] LABS: Troponin I < 0.01 ng/ml (0.00-0.034)
[2022-12-05 21:00] VITALS: PULSE 115; RESP 18; O2SAT 93
--- NOTE | 2022-12-05 21:03 | CT_ITS ---
PROCEDURE INFORMATION: Exam: CTA Chest With Contrast Exam date and time: 12/05/2022 9:41 PM Age: 62 years old Clinical indication: Shortness of breath; Patient HX: HX lung cancer; Additional info: SOA TECHNIQUE: Imaging protocol: Computed tomographic angiography of the chest with contrast. Exam focused on the arteries. 3D rendering (Not supervised by radiologist): MIP and/or 3D reconstructed images were created by the technologist. Radiation optimization: All CT scans at this facility use at least one of these dose optimization techniques: automated exposure control; mA and/or kV adjustment per patient size (includes targeted exams where dose is matched to clinical indication); or iterative reconstruction. Contrast material: ISOVUE; Contrast volume: 70 ml; Contrast route: INTRAVENOUS (IV); REPORTING DATA: Count of CT and Cardiac NM exams in prior 12 months: This patient has received 2 known CTs and 0 known cardiac nuclear medicine studies in the 12 months prior to the current study. COMPARISON: CT ANGIO CHEST PE PROTOCOL 08/29/2022 4:04 PM FINDINGS: Pulmonary arteries: The exam is limited by motion artifacts, particularly in the lower lungs. Heterogeneous enhancement of lower pulmonary arterial branches which could be small emboli versus motion artifacts, e.g. sagittal series 1002, image 39; no large, central emboli detected. Aorta: No thoracic aortic aneurysm. No findings of dissection. Thyroid: Heterogeneous thyroid with some tiny nodules up to 9 mm on the right series 5, image 12. No significantly enlarged or calcified nodules. Lungs: Heterogeneous posterior left upper chest mass of approximately 11.2 x 8.6 x 7.2 cm diameter today, compared with 12.6 x 10.2 x 8.8 cm on the prior exam, minimally decreased in size. There is low attenuation central tissue which could be due to tumor necrosis, and there are a few new gas bubbles within the mass, correlate clinically to exclude superimposed infection. The adjacent approximate 1.5 cm satellite lesion seen in the anterior left upper lobe on series 5, image 60 of the prior exam has decreased to 1 cm on today's study series 5, image 56. Posterior left apical airspace opacities are concerning for superimposed pneumonia. A consolidation seen in the left lingula on the prior exam has resolved. However, there is increased airspace disease in the superior segment of the left lower lobe today concerning for pneumonia, or this could be spread of malignancy. There are underlying cystic emphysematous changes in the lungs. Chronic tiny nodular pleural based density of 6 mm in the posteromedial right lower chest series 5, image 99 is unchanged. Pleural spaces: There is new left posterolateral pleural thickening or loculated complex fluid with HU density of approximally 24 series 5, image 26, measuring up to 1.3 cm thickness coronal series 1001, image 37. No layering pleural effusion. No pneumothorax. Heart: The heart is not enlarged. No significant pericardial effusion. Heart RV/LV ratio: RV/LV ratio approximately 1, within upper limits normal. There is no reflux of contrast into the IVC or hepatic veins to suggest acute right heart strain. Lymph nodes: Left mediastinal and hilar lymphadenopathy, multilobulated left perihilar mass appears slightly less prominent compared with the prior study, measuring 4.3 x 4.1 cm diameter on series 5, image 59 today, versus 4.7 x 5.0 cm at a similar level on the prior study series 5, image 59. Bones/joints: A new mildly displaced left posterolateral rib fracture series 5, image 46-48. Slightly irregular contours of the rib could be due to underlying metastatic lesion, or some mild bony remodeling if this is a subacute injury. E.g. series 5, image 47.There
--- NOTE | 2022-12-05 21:28 | PC.NURSE ---
rounded on patient, states his pain is increasing and would like something for pain, RN informed. no other needs at this time family at bedside
[2022-12-05 22:00] VITALS: PULSE 115; RESP 20; O2SAT 94
[2022-12-05 23:00] VITALS: BP 116/71; PULSE 102; RESP 18; O2SAT 94
[2022-12-05 23:26] VITALS: BP 119/75; PULSE 95; RESP 16; TEMP 36.8
[2022-12-05 23:34] LABS: Troponin I < 0.01 ng/ml (0.00-0.034)
== END 2022-12-05 23:30 | disposition home or self-care (01) ==
PROVIDERS: Emergency Provider Emergency Medicine; PCP Nurse Practitioner Family
DX: R53.1 Weakness (principal); R06.02 Shortness of breath; R19.7 Diarrhea, unspecified; C34.90 Malignant neoplasm of unspecified part of unspecified bronchus or lung; E11.9 Type 2 diabetes mellitus without complications; J43.9 Emphysema, unspecified; R00.0 Tachycardia, unspecified
CPT/HCPCS: 36415; 71046; 71275; 80048; 84484; 85025; 93005; 93041; 99285; Q9967

== ENCOUNTER 2023-02-07 06:03 | Day surgery (SDC) | payer OTHER, SELFPAY ==
[2023-02-07 06:24] VITALS: BP 133/70; PULSE 120; RESP 20; TEMP 37.1; O2SAT 99; BMI 26.3
[2023-02-07 06:34] LABS: POC Glucose,Bedside 147 (70-110)
--- NOTE | 2023-02-07 07:00 | EXP.ANES.CKL ---
[facility] Disclaimer: The information contained in this section may have been updated after the patient was seen, as this information can be updated by other users. Medical History Abnormal computerized axial tomography of chest Candidiasis of mouth COPD mixed type Diabetes mellitus, type 2 Dyspnea on exertion Encounter for screening for diabetes mellitus Establishing care with new doctor, encounter for Hilar lymphadenopathy Insomnia Lung cancer, upper lobe Lung mass Mediastinal lymphadenopathy Pneumonia Pneumonia Pulmonary emphysema Pulmonary nodules Smoking greater than 30 pack years Surgical History History of bronchoscopy Family History Grandmother Cancer Mother , at age 54 COPD (chronic obstructive pulmonary disease) Cancer Social History (Updated 02/07/23 @ 06:24 by Curtis Lopez RN) Smoking Status: Current every day smoker tobacco type: cigarettes packs per day: 1 pack-years: 43 years smoked: 43 alcohol intake: current substance use type: denies use current occupational status: unemployed Travel in the last 8 weeks: Inside the [facility] Anesthesia Checklist Patient Identification Patient Identification: Arm Band and Family Structural Data Admitted From: Home Planned Operative Procedure/s: Excision cyst, right shoulder Consent for Planned Operative Procedure(s) Verified: Yes Verified Documents: Surgical Consent and History and Physical NPO Status Verified Time NPO: 00:00 Additional verifications Anesthesia Reactions: No Hx Blood Transfusions: No Blood Transfusion Reaction: No Cephalosporin Allergy: No Previous Colonoscopy: No Airway Assessment Mallampati Score:: Class II C-Spine Mobility Assessed: Yes TMJ Mobility Assessed: Yes Neurological Assessment Level of Consciousness: Awake, Alert, Appropriate and Follows Commands Hx Seizures: No Numbness or tingling in extremities: No Anesthesia Plan ASA Class: II Anesthesia Type: Local & MAC Preoperative Comments Pre-Operative Comments: Lung cancer. Prediabetic. Previous anesthesia for teeth only. Gut hurts to see doctor later today. FBS 147.
--- NOTE | 2023-02-07 07:59 | P.OP_ITS ---
Date of procedure: 02/07/23 Pre-op Diagnosis:: Left upper back cyst (2.5 cm) Post-op Diagnosis:: Same Procedure performed:: Excision of 2.5 cm left upper back cyst Surgeon:: Derrell Phillips MD GENERAL LEDGER BOOKKEEPER:: Khurram Gupta Anesthesia: MAC and local Estimated blood loss (mL): 10 Operative findings:: Lesion excised in toto Operative note:: After informed consent was obtained the patient was taken to the operating room and placed in the right lateral decubitus position. Monitored anesthesia care ensued and his left upper back was prepped and draped in a sterile fashion. After infiltration of local anesthetic an elliptical incision was made around the lesion. A combination of sharp dissection with scalpel and electrocautery was utilized to transect around the lesion. The lesion was excised in toto and passed off for pathologic evaluation. Dissection was taken into the deep subcutaneous tissue but did not encroach on the fascial margin. Electrocautery was utilized to achieve hemostasis. Skin was then reapproximated with 4-0 nylon in an interrupted/mattress fashion. Dressings were applied and the patient was transferred to recovery in stable condition. Condition: stable Disposition: PACU Specimens:: Left upper back cyst Complications:: No immediate
[2023-02-07 08:05] VITALS: BP 119/67; PULSE 122; RESP 30; TEMP 36.1; O2SAT 96
[2023-02-07 08:20] VITALS: BP 106/64; PULSE 111; RESP 26; TEMP 36.1; O2SAT 98
[2023-02-07 08:35] VITALS: BP 115/70; PULSE 107; RESP 22; O2SAT 95
[2023-02-07 08:45] VITALS: BP 109/66; PULSE 110; RESP 22; TEMP 36.4; O2SAT 96
--- NOTE | 2023-02-07 10:46 | XR_ITS ---
FINAL REPORT CLINICAL HISTORY: abd bloating with vomiting FINDINGS: ABDOMEN AP AND OBLIQUE/CONE VIEWS There is a nonspecific, nonobstructive bowel gas pattern. No abnormal dilatation is identified. There is a moderate amount of stool throughout the colon. There is no abnormal calcification. There are partially imaged left lung opacities of uncertain etiology, may represent pneumonia. IMPRESSION: Left lung opacities of uncertain etiology, may represent pneumonia. Reviewed, Interpreted and Dictated by Glenroy Hartley III, MD Transcribed by Anastacia Lara Authenticated and [facility]
== END 2023-02-07 08:45 | disposition home or self-care (01) ==
PROVIDERS: PCP Nurse Practitioner Family; Visit Provider Surgery
PROC: (CPT 11403; principal; 2023-02-07 07:30)
DX: L72.0 Epidermal cyst (principal); E11.9 Type 2 diabetes mellitus without complications
CPT/HCPCS: 11403; 74019; 82962; 96374

== ENCOUNTER → 2023-02-07 16:30 | Outpatient (CLI) | payer OTHER, SELFPAY ==
[2023-02-07 15:27] LABS: Basophils % 0.2 % (0.1-2.0); Eosinophils # 0.5 K/mm3 (0.0-0.4); Eosinophils % 6.2 % (0.1-12.0); Hematocrit 33.3 % (42.0-52.0); Hemoglobin 10.5 g/dL (14.1-18.0); Lymphocytes # 0.9 K/mm3 (0.7-4.5); Lymphocytes % 11.5 % (10-50); Mean Corpuscular HGB Conc 31.6 g/dL (31.8-35.4); Mean Corpuscular Volume 79.1 fl (80-94); Monocytes # 0.5 K/mm3 (0.1-1.0); Neutrophils % 76.1 % (37.0-80.0); Platelet Count 575 K/mm3 (142-424); Red Blood Count 4.21 M/mm3 (4.60-6.20); Red Cell Distribution Width 16.2 % (11.5-17.5); White Blood Count 7.9 K/mm3 (4.8-10.8)
[2023-02-07 16:02] LABS: Chloride 100 mmol/L (98-107); Potassium 4.8 mmoL/L (3.5-5.1); Sodium 140 mmol/L (136-145)
[2023-02-07 16:04] LABS: Blood Urea Nitrogen 9 mg/dl (9-20); Estimated Glomerular Filt Rate 137 ml/min (>60); GFR (African American) 166 ML/MIN (>60)
[2023-02-07 16:05] LABS: Alanine Aminotransferase 26 U/L (12-78); Albumin Level 3.3 g/dl (3.5-5.0); Alkaline Phosphatase 78 U/L (38-126); Anion Gap 16.8 mEq/L (5-15); Aspartate Amino Transferase 21 U/L (17-59); Bilirubin,Total 0.2 mg/dl (0.2-1.3); Calcium 9.3 mg/dl (8.4-10.2); Carbon Dioxide 28 mmol/L (22.0-30.0); Chol/HDL Ratio 7.3 (1-3.5); Cholesterol 191 mg/dl (140-200); Globulin 3.3 g/dL (1.3-3.2); Glucose 128 mg/dl (74-100); HDL Cholesterol 26 mg/dl (40-60); Total Protein,Serum 6.6 g/dl (6.3-8.2); Triglycerides 156 mg/dl (30-150); VLDL Cholesterol 31 mg/dL (0-40)
[2023-02-07 16:16] LABS: Direct LDL Cholesterol 116.76 mg/dL (100-129)
[2023-02-07 16:40] LABS: Hemoglobin A1C 6.8 % (4.0-6.0)
== END ==
PROVIDERS: PCP Nurse Practitioner Family; Visit Provider Nurse Practitioner Family
DX: R11.10 Vomiting, unspecified (principal); R14.0 Abdominal distension (gaseous); I10 Essential (primary) hypertension; E11.9 Type 2 diabetes mellitus without complications; Z79.84 Long term (current) use of oral hypoglycemic drugs
CPT/HCPCS: 80053; 80061; 83036; 85025

== ENCOUNTER 2023-04-14 11:48 | Emergency (ER) | payer OTHER, SELFPAY ==
[2023-04-14] VITALS (8 sets, daily range): BP systolic 136–158; BP diastolic 73–93; PULSE 87–117; RESP 15–31; TEMP 36.6–36.8; O2SAT 93–100; BMI 25.0
--- NOTE | 2023-04-14 11:47 | ECG_ITS ---
APPROVED REPORT Exam: Resting ECG HR:117 bpm ECG Measurements Heart Rate 117 AXES TX 146 P 85 QRSd 97 QRS 89 QT 312 T 89 QTc 382 Conclusion SINUS TACHYCARDIA WITH OCCASIONAL VENTRICULAR PREMATURE COMPLEXES POSSIBLE LEFT ATRIAL ENLARGEMENT [-0.1mV P-WAVE IN V1/V2] ABNORMAL RHYTHM ECG UNCONFIRMED REPORT Electronically signed by : Gerson Xiao MD 04/16/2023 20:15:40
--- NOTE | 2023-04-14 12:07 | XR_ITS ---
PROCEDURE INFORMATION: Exam: XR Chest Exam date and time: 04/14/2023 12:13 PM Age: 62 years old Clinical indication: Dyspnea; Additional info: Cp. HX of lung cancer TECHNIQUE: Imaging protocol: Radiologic exam of the chest. Views: 1 view. COMPARISON: CR XR CHEST 2V 12/05/2022 8:15 PM FINDINGS: Lungs: Increasing opacity in the left apex most likely represents the lung cancer. There may be superimposed pneumonia.. Pleural spaces: Unremarkable. No pleural effusion. No pneumothorax. Heart/Mediastinum: Unremarkable. No cardiomegaly. Diaphragm: Tenting in the left hemidiaphragm Bones/joints: Unremarkable. IMPRESSION: Increasing opacity in the left apex most likely represents the lung cancer. There may be superimposed pneumonia..
[2023-04-14 12:27] LABS: Chloride 98 mmol/L (98-107); Sodium 137 mmol/L (136-145)
[2023-04-14 12:28] LABS: Potassium 3.6 mmoL/L (3.5-5.1)
[2023-04-14 12:29] LABS: Basophils % 0.3 % (0.1-2.0); Eosinophils # 0.7 K/mm3 (0.0-0.4); Eosinophils % 8.6 % (0.1-12.0); Hematocrit 36.6 % (42.0-52.0); Lymphocytes # 0.7 K/mm3 (0.7-4.5); Lymphocytes % 9.6 % (10-50); Mean Corpuscular HGB Conc 32.9 g/dL (31.8-35.4); Mean Corpuscular Hemoglobin 26.8 pg (27.0-31.2); Mean Corpuscular Volume 81.5 fl (80-94); Mean Platelet Volume 7.8 fl (7.4-10.4); Monocytes # 0.4 K/mm3 (0.1-1.0); Monocytes % 4.7 % (1.7-9.3); Neutrophils # 5.9 K/mm3 (1.8-7.8); Neutrophils % 76.7 % (37.0-80.0); Platelet Count 331 K/mm3 (142-424); Red Blood Count 4.49 M/mm3 (4.60-6.20); Red Cell Distribution Width 18.1 % (11.5-17.5); White Blood Count 7.7 K/mm3 (4.8-10.8)
--- NOTE | 2023-04-14 12:29 | CT_ITS ---
PROCEDURE INFORMATION: Exam: CTA Chest With Contrast Exam date and time: 04/14/2023 1:50 PM Age: 62 years old Clinical indication: Shortness of breath; Additional info: History of CA and new onset soa/tachy TECHNIQUE: Imaging protocol: Computed tomographic angiography of the chest with contrast. Exam focused on the arteries. 3D rendering (Not supervised by radiologist): MIP and/or 3D reconstructed images were created by the technologist. Radiation optimization: All CT scans at this facility use at least one of these dose optimization techniques: automated exposure control; mA and/or kV adjustment per patient size (includes targeted exams where dose is matched to clinical indication); or iterative reconstruction. Contrast material: ISOVUE 370; Contrast volume: 70 ml; Contrast route: INTRAVENOUS (IV); REPORTING DATA: Count of CT and Cardiac NM exams in prior 12 months: This patient has received 3 known CTs and 0 known cardiac nuclear medicine studies in the 12 months prior to the current study. COMPARISON: CT ANGIO CHEST PE PROTOCOL 12/05/2022 9:41 PM FINDINGS: Pulmonary arteries: Left upper lobe pulmonary arteries are encased and/or compressed by the pulmonary mass, but remain patent. No evidence of pulmonary emboli. Aorta: No aortic dissection or aneurysm. No aortic dissection or aneurysm. Lungs: Interval increase in size of the large left upper lobe pulmonary mass, now measuring 11.5 x 10.0 x 6.9 cm compared with 10.9 x 9.5 x 6.5 cm on 12/05/2022 when measured in similar dimensions. The mass now completely encases the left hilum and there is a new atelectasis in the apicoposterior and anterior segments of the left lower lobe secondary to other compression or invasion of the segmental bronchi. Nodular atelectasis/scarring in the right lung apex is grossly unchanged from prior exam. Severe upper lobe predominant paraseptal and centrilobular emphysema is also not significantly changed. New patchy clusters of ground glass tree-in-bud nodularity in the bilateral lower lobes compatible with atypical pneumonia vs other inflammatory process. Pleural spaces: No pneumothorax. No pleural effusion. Heart: No cardiomegaly. No significant pericardial effusion. Lymph nodes: No enlarged lymph nodes by CT criteria. Bones/joints: Chronic left rib fracture deformity is unchanged. No evidence of acute osseous abnormality or suspicious bone lesions. Soft tissues: Gynecomastia, not significantly changed from prior exam. IMPRESSION: 1. Interval increase in size of a large left upper lobe pulmonary mass when compared with 12/05/[address], as detailed above. 2. The mass now completely encases the left hilum and there is a new atelectasis in the apicoposterior and anterior segments of the left lower lobe secondary to other compression or invasion of the segmental bronchi. 3. Left upper lobe pulmonary arteries are encased and/or compressed by the pulmonary mass, but remain patent. No evidence of pulmonary emboli. 4. New patchy clusters of ground glass tree-in-bud nodularity in the bilateral lower lobes compatible with atypical pneumonia vs other inflammatory process. 5. Chronic ancillary findings are unchanged from prior exam, as detailed above. COMMENTS: In the absence of a history or active diagnosis of lung cancer, it is recommended that this patient with emphysema be evaluated for enrollment in a low dose CT lung cancer screening program.
[2023-04-14 12:30] LABS: Alanine Aminotransferase 26 U/L (12-78); Alkaline Phosphatase 71 U/L (38-126); Aspartate Amino Transferase 29 U/L (17-59); Blood Urea Nitrogen 10 mg/dl (9-20); Creatinine Clearance Estimated 161 mL/min (50-200); Estimated Glomerular Filt Rate 170 ml/min (>60); GFR (African American) 205 ML/MIN (>60); Lipase 24 U/L (23-300)
[2023-04-14 12:31] LABS: Albumin Level 3.9 g/dl (3.5-5.0); Albumin/Globulin Ratio 1.1 (1.1-1.8); Anion Gap 10.6 mEq/L (5-15); Bilirubin,Total < 0.1 mg/dl (0.2-1.3); Calcium 8.8 mg/dl (8.4-10.2); Carbon Dioxide 32 mmol/L (22.0-30.0); Globulin 3.4 g/dL (1.3-3.2); Glucose 235 mg/dl (74-100); Total Protein,Serum 7.3 g/dl (6.3-8.2)
[2023-04-14 12:40] LABS: NT Pro Brain Natriuretic Pep. 215 pg/mL (0-125)
[2023-04-14 12:46] LABS: Troponin I < 0.01 ng/ml (0.00-0.034)
--- NOTE | 2023-04-14 12:54 | PC.NURSE ---
pt arrived back to room from ct
--- NOTE | 2023-04-14 13:12 | [facility].EDGENADL ---
Discharge Plan Disposition Patient Disposition: Home, Self-Care Prescriptions Prescriptions: New cefdinir 300 mg capsule 300 mg PO BID 10 Days Qty: 20 0RF No Action albuterol sulfate 1.25 mg/3 mL solution for nebulization 1.25 mg inhalation QID PRN (Reason: shortness of breath or wheezing) Qty: 270 0RF ondansetron 4 mg tablet,disintegrating 4 mg PO Q8H PRN (Reason: nausea and vomiting) Qty: 30 3RF ibuprofen 800 mg tablet 800 mg PO TID PRN (Reason: pain) Qty: 90 1RF albuterol sulfate [Ventolin HFA] 90 mcg/actuation HFA aerosol inhaler 2 puff inhalation Q4-6H PRN (Reason: shortness of breath or wheezing) Qty: 18 5RF ipratropium-albuterol 0.5 mg-3 mg(2.5 mg base)/3 mL solution for nebulization 3 ml inhalation QID PRN (Reason: shortness of breath or wheezing) 90 Days Qty: 270 3RF codeine-guaifenesin 10-100 mg/5 mL liquid 5 ml PO QID Qty: 118 0RF Stiolto Respimat 2.5-2.5 mcg/actuation mist 2 puff inhalation DAILY Qty: 4 5RF (DME) FreeStyle Lite Strips Strip See Rx Instructions .ROUTE .COMPLEX Rx Instructions: USE DIRECTED (DME) blood-glucose meter [FreeStyle Lite Meter] Kit See Rx Instructions .Route Rx Instructions: As directed (DME) lancets [FreeStyle Lancets] 28 gauge misc See Rx Instructions .Route Rx Instructions: As directed metformin 500 mg tablet 500 mg PO DAILY Referrals Follow up/Referrals: Provider,Referral, MD [Referring] - See instructions Activity Restrictions/Add. Instructions Additional Instructions/Restrictions: Call your family doctor to establish care for this visit to the emergency department and schedule follow-up within 48 hours to ensure improvement. If you have any worsening of your condition or any other concerning signs or symptoms, return to the emergency department or your primary care doctor for further evaluation. Cefdinir twice daily for 10 days. Follow-up with pulmonology and oncology group. Clinical Impressions Clinical Impression: Pneumonia Qualifiers: Pneumonia type: due to unspecified organism Laterality: left Lung location: upper lobe of lung Qualified Code(s): J18.9 - Pneumonia, unspecified organism Instructions Patient Instructions: DI for Atypical Chest Pain Discharge ED Provider: Ken Ayala General Adult HPI General Chief complaint: Chest Pain Stated complaint: Cp Time Seen by Provider: 04/14/23 12:00 Mode of Arrival: Ambulatory Source of Information: Patient Limitations: No Limitations Description of Symptoms (Recalled from ER Triage Doc. by RN): pt to ed c/o chest pain and shortness of breath. pt states he has been taking immunotherapy for lung cancer. pt denies n/v/d or generalized illness. History of Present Illness HPI narrative: 8-year-old male history of hypertension, hyperlipidemia, COPD, lung cancer currently undergoing radiation therapy presenting with chest pain. Patient states that chest pain started a couple days ago, got acutely worse today. Associated shortness of breath. Patient states that just 2 days ago he was able to play 27 rounds of golf without issue. Today, can barely take a step without feeling short of breath. Is currently on immunotherapy. Has had cough productive of brown sputum, no fevers or chills, night sweats. Patient not having diarrhea, constipation, melena, hematochezia. Chest pain is associated with coughing, absent in the absence of coughing. Related Data Home Medications Medication Instructions Recorded Confirmed blood sugar diagnostic (FreeStyle 12/05/22 02/22/23 Lite Strips) blood-glucose meter (FreeStyle 12/05/22 02/22/23 Lite Meter kit) lancets 28 gauge (FreeStyle 12/05/22 02/22/23 Lancets) metformin 500 mg tablet 500 mg PO DAILY . 02/07/23 02/22/23 Previous Rx's Medication Instructions Recorded albuterol sulfate 1.25 mg/3 mL 1.25 mg (3 mL) inhalation QID PRN 12/20/22 solution for nebulization shortness
[2023-04-14 15:51] LABS: Troponin I < 0.01 ng/ml (0.00-0.034)
--- NOTE | 2023-04-20 17:58 | PC.NURSE ---
notified Dr Soler of blood culture results as called by lab. Dr. Soler states no action needed at this time.
== END 2023-04-14 16:13 | disposition home or self-care (01) ==
PROVIDERS: Emergency Provider Emergency Medicine; PCP Nurse Practitioner Family
DX: J18.9 Pneumonia, unspecified organism (principal); R07.9 Chest pain, unspecified; I10 Essential (primary) hypertension; C34.90 Malignant neoplasm of unspecified part of unspecified bronchus or lung; R06.02 Shortness of breath; Z92.3 Personal history of irradiation; E11.9 Type 2 diabetes mellitus without complications; Z87.891 Personal history of nicotine dependence
CPT/HCPCS: 36415; 71045; 71275; 80053; 83690; 83880; 84484; 85025; 87070; 87205; 93005; 96365; 96374; 96375; 99285; J0696; Q9967

== ENCOUNTER 2023-05-08 07:44 | Inpatient (IN) | payer OTHER, SELFPAY ==
[2023-05-08] VITALS (26 sets, daily range): BP systolic 129–165; BP diastolic 67–94; PULSE 90–129; RESP 20–34; TEMP 36.3–37.8; O2SAT 93–100; BMI 26.4; BMI 25.4
--- NOTE | 2023-05-08 07:30 | ECG_ITS ---
APPROVED REPORT Exam: Resting ECG HR:115 bpm ECG Measurements Heart Rate 115 AXES ND 148 P 89 QRSd 102 QRS 90 QT 314 T 90 QTc 382 Conclusion SINUS TACHYCARDIA WITH OCCASIONAL SUPRAVENTRICULAR PREMATURE COMPLEXES POSSIBLE RIGHT VENTRICULAR CONDUCTION DELAY [RSR (QR) IN V1/V2] POSSIBLE ANTEROLATERAL MYOCARDIAL INFARCTION , OF INDETERMINATE AGE [30 ms Q WAVE IN I/aVL/V3-V6] ABNORMAL ECG UNCONFIRMED REPORT Electronically signed by : Gerson Xiao MD 05/08/2023 13:22:19
--- NOTE | 2023-05-08 07:42 | CT_ITS ---
FINAL REPORT CLINICAL HISTORY: SOB, hypoxia, tachypnea COMPARISON: 04/14/2023 FINDINGS: Thin section axial CT images of the chest were obtained with contrast. 3D reformatted images were also obtained. This study was performed with techniques to keep radiation doses as low as reasonably achievable (ALARA). Individualized dose reduction techniques using automated exposure control or adjustment of mA and/or kV according to the patient's size were employed. There is no evidence of pulmonary embolism. There is no evidence of thoracic aortic aneurysm or dissection. Mediastinal adenopathy is stable. There is a large necrotic mass in the left lung measuring up to 8.7 cm, was 8.2 cm. There are widespread other opacities in the left lung. There is severe emphysema. There is scarring in the right lung apex. Limited images of the upper abdomen are unremarkable. IMPRESSION: No evidence of pulmonary embolism. Large necrotic mass left lung with widespread other opacities. Findings may represent inflammatory process, neoplastic process, or a combination of both. Reviewed, Interpreted and Dictated by Glenroy Hartley III, MD Transcribed by Suzy Sousa Authenticated and [facility]
--- NOTE | 2023-05-08 07:45 | PC.NURSE ---
Dr. Hickman at bedside
[2023-05-08] MEDS: 0.9 % SODIUM CHLORIDE 1000ML 1,000 ML 999 ML IV (07:53)
--- NOTE | 2023-05-08 07:58 | ED_ITS ---
Discharge Plan Disposition Patient Disposition: Admitted Condition: Fair Prescriptions Prescriptions: No Action albuterol sulfate 1.25 mg/3 mL solution for nebulization 1.25 mg inhalation QID PRN (Reason: shortness of breath or wheezing) Qty: 270 0RF ondansetron 4 mg tablet,disintegrating 4 mg PO Q8H PRN (Reason: nausea and vomiting) Qty: 30 3RF ibuprofen 800 mg tablet 800 mg PO TID PRN (Reason: pain) Qty: 90 1RF albuterol sulfate [Ventolin HFA] 90 mcg/actuation HFA aerosol inhaler 2 puff inhalation Q4-6H PRN (Reason: shortness of breath or wheezing) Qty: 18 5RF ipratropium-albuterol 0.5 mg-3 mg(2.5 mg base)/3 mL solution for nebulization 3 ml inhalation QID PRN (Reason: shortness of breath or wheezing) 90 Days Qty: 270 3RF codeine-guaifenesin 10-100 mg/5 mL liquid 5 ml PO QID Qty: 118 0RF Stiolto Respimat 2.5-2.5 mcg/actuation mist 2 puff inhalation DAILY Qty: 4 5RF (DME) FreeStyle Lite Strips Strip See Rx Instructions .ROUTE .COMPLEX Rx Instructions: USE DIRECTED (DME) blood-glucose meter [FreeStyle Lite Meter] Kit See Rx Instructions .Route Rx Instructions: As directed (DME) lancets [FreeStyle Lancets] 28 gauge misc See Rx Instructions .Route Rx Instructions: As directed metformin 500 mg tablet 500 mg PO DAILY hydrocodone-acetaminophen 5-325 mg tablet 1 tab PO QID PRN (Reason: Pain, Moderate) Referrals Follow up/Referrals: Leda Hernandez APRN [Primary Care Provider] - See instructions Clinical Impressions Clinical Impression: Postobstructive pneumonia, Mass of upper lobe of left lung Discharge ED Provider: John Hickman I General Adult HPI General Chief complaint: Shortness of Breath/Dyspnea Stated complaint: SOA Time Seen by Provider: 05/08/23 07:47 Mode of Arrival: EMS Source of Information: Patient, EMS and Medical Record Limitations: No Limitations Description of Symptoms (Recalled from ER Triage Doc. by RN): Pt c/o increasing SOA and dyspnea for several days. He was seen at [facility] ER last week and dx with PNA and sent home with ABX. States he has continuted to decline. He has known lung cancer and saw his Oncologist yesterday (Dr. Astudillo), he received an immunotherapy treatment yesterday and his provider wanted to admit him to , although pt did not stay d/t the amount of patiented waiting in the ER. Pt reports mud like sputum. He gave a sputum sample last week and was told it was ok . He reports to feeling feverish and weak. History of Present Illness HPI narrative: Patient is a 62-year-old male, has a history of COPD, type 2 diabetes, left upper lobe lung cancer s/p radiation treatment, currently on immunotherapy infusions presenting to the emergency department with progressively worsening shortness of breath, acutely worsening this morning. History was conducted with the patient at bedside. Patient states that he was recently evaluated in the emergency department for productive cough of rust colored sputum, shortness of breath and was ultimately discharged with a course of antibiotics. Patient states that he was compliant and completed the course of antibiotics but has not had any improvement in symptoms. He has remained short of breath. Patient states that when he woke up this morning, had severe shortness of breath, difficulty breathing, prompting him to call EMS, who administered a breathing treatment and patient was brought into the emergency department. He had denies abdominal pain. He does report that he has had some mild nausea. He denies any significant chest pain, episodes of syncope, lightheadedness or dizziness. Denies any episodes of vomiting, paresthesias, focal weakness. Has not had any dysuria, melena. He is not on any blood thinners. Denies any recent falls or injuries. He states that he is not on any oxygen throughout the day, but is on 2 L of oxygen at night as needed. Patient states that he was receiving immunotherapy yesterday at [facility], was advised by his oncologist to be admitted to the hospital for further workup given his prior CT scan demonstrated evidence of bronchus compression and enlarging size of left upper lobe lung mass. However, patient did not want to remain in the emergency department or be exposed to any other potential illnesses given that he is on immunotherapy, and decided to be discharged home. Ever, patient states that he has worsening symptoms today. He also reports feeling feverish, having chills and burning up . He has not checked his temperature at home. Related Data Home Medications Medication Instructions Recorded Confirmed blood sugar diagnostic (FreeStyle 12/05/22 05/08/23 Lite Strips) blood-glucose meter (FreeStyle 12/05/22 05/08/23 Lite Meter kit) lancets 28 gauge (FreeStyle 12/05/22 05/08/23 Lancets) metformin 500 mg tablet 500 mg PO DAILY . 02/07/23 05/08/23 hydrocodone 5 mg-acetaminophen 325 1 tab PO QID PRN Pain, Moderate 05/08/23 05/08/23 mg tablet Previous Rx's Medication Instructions Recorded albuterol sulfate 1.25 mg/3 mL 1.25 mg (3 mL) inhalation QID PRN 12/20/22 solution for nebulization shortness of breath or wheezing #270 mL ibuprofen 800 mg tablet 800 mg PO TID PRN pain #90 tabs 12/28/22 ondansetron 4 mg disintegrating 4 mg PO Q8H PRN nausea and 02/07/23 tablet vomiting #30 tabs Ventolin HFA 90 mcg/actuation 2 puff inhalation Q4-6H PRN 04/03/23 aerosol inhaler (albuterol sulfate) shortness of breath or wheezing #18 grams codeine 10 mg-guaifenesin 100 mg/5 5 ml PO QID Cough #118 mL 04/09/23 mL oral liquid ipratropium 0.5 mg-albuterol 3 mg 3 ml inhalation QID PRN shortness 04/09/23 (2.5 mg base)/3 mL nebulization of breath or wheezing 90 days #270 soln mL tiotropium 2.5 mcg-olodaterol 2.5 2 puff inhalation DAILY Copd #4 04/10/23 mcg/actuation mist for inhalation grams (Stiolto Respimat) Allergies Allergy/AdvReac Type Severity Reaction Status Date / Time No Known Allergies Allergy Verified 04/14/23 15:03 [facility] Disclaimer: The information contained in this section may have been updated after the patient was seen, as this information can be updated by other users. Medical History Abnormal computerized axial tomography of chest Candidiasis of mouth COPD mixed type Cough Diabetes mellitus, type 2 Dyspnea on exertion Encounter for screening for diabetes mellitus Establishing care with new doctor, encounter for Hilar lymphadenopathy Insomnia Lung cancer, upper lobe Lung mass Mediastinal lymphadenopathy Pneumonia Pneumonia Pulmonary emphysema Pulmonary nodules Smoking greater than 30 pack years Surgical History (Updated 02/22/23 @ 09:41 by CAROLINE Nunes) History of bronchoscopy History of local excision of skin lesion Family History Grandmother Cancer Mother , at age 54 COPD (chronic obstructive pulmonary disease) Cancer Social History Smoking Status: Former smoker tobacco type: cigarettes packs per day: 1 years smoked: 43 alcohol intake: current substance use type: denies use current occupational status: unemployed Travel in the last 8 weeks: Inside the [place] ROS Obtained: Yes All systems reviewed & no additional complaints except as documented Physical Exam General General appearance: alert Comment: Appears to be uncomfortable, tachypneic Head Head exam: atraumatic and normocephalic ENT ENT exam: Present normal exam Neck Neck exam: Present full ROM Chest Chest inspection: Present symmetric chest wall rise Respiratory Respiratory exam: Present respiratory distress (Patient is mildly tachypneic); Absent normal lung sounds bilaterally (Patient has significantly diminished breath sounds in the left chest, end expiratory wheezes in the right upper lung field) or accessory muscle use Cardiovascular Cardiovascular exam: Present normal rhythm and tachycardia Abdominal Exam Abdominal exam: Present soft; Absent distention, tenderness, guarding or rebound Extremities Exam Extremities exam: Present normal inspection and full ROM Neurological Exam Neurological exam: Present alert and oriented X3 Psychiatric Psychiatric exam: Present normal affect Skin Skin exam: Present warm, dry and intact Medical Decision Making Medical Records Medical records reviewed: Yes I reviewed the patient's medical records. Tony Inquiry Pt receiving controlled substance: Yes Tony was queried for this patient: No Risks and benefits of using a controlled substance: were not discussed with pt by me Vital Signs: 05/08/23 07:44 05/08/23 08:11 05/08/23 08:11 Temperature 97.4 F L Temperature Source Oral Pulse Rate 122 H 124 H Pulse Rate [Right] 113 H Respiratory Rate 34 H Blood Pressure Blood Pressure [Right Arm] 154/94 H Blood Pressure Mean Blood Pressure Mean [Right Arm] 114 Blood Pressure Source [Right Arm] Automatic Cuff 02 Sat by Pulse Oximetry 97 Oxygen Delivery Method Nasal Cannula Oxygen Flow Rate (LPM) 3.5 05/08/23 08:00 05/08/23 08:46 05/08/23 09:01 Temperature Temperature Source Pulse Rate 114 H 107 H 113 H Pulse Rate [Right] Respiratory Rate 23 28 H 27 H Blood Pressure 155/89 H 161/81 H 165/89 H Blood Pressure [Right Arm] Blood Pressure Mean 118 107 109 Blood Pressure Mean [Right Arm] Blood Pressure Source [Right Arm] 02 Sat by Pulse Oximetry 97 97 98 Oxygen Delivery Method Nasal Cannula Nasal Cannula Nasal Cannula Oxygen Flow Rate (LPM) 3.5 3.5 3.5 05/08/23 09:30 05/08/23 10:01 05/08/23 10:30 Temperature Temperature Source Pulse Rate 110 H 122 H 119 H Pulse Rate [Right] Respiratory Rate 25 H 29 H 29 H Blood Pressure 147/86 H 129/88 137/81 Blood Pressure [Right Arm] Blood Pressure Mean 100 101 104 Blood Pressure Mean [Right Arm] Blood Pressure Source [Right Arm] 02 Sat by Pulse Oximetry 95 97 95 Oxygen Delivery Method Nasal Cannula Nasal Cannula Nasal Cannula Oxygen Flow Rate (LPM) 3.5 3.5 3.5 05/08/23 11:00 Temperature Temperature Source Pulse Rate 116 H Pulse Rate [Right] Respiratory Rate Blood Pressure 131/67 Blood Pressure [Right Arm] Blood Pressure Mean 88 Blood Pressure Mean [Right Arm] Blood Pressure Source [Right Arm] 02 Sat by Pulse Oximetry 97 Oxygen Delivery Method Nasal Cannula Oxygen Flow Rate (LPM) 3.5 Lab Data Lab Results 05/08/23 07:35: WBC 8.5, RBC 4.72, Hgb 12.6 L, Hct 38.3 L, MCV 81.1, MCH 26.6 L, MCHC 32.8, RDW 17.5, Plt Count 392, MPV 7.3 L, Neut % (Auto) 73.9, Lymph % (Auto) 10.1, [place] % (Auto) 4.5, Eos % (Auto) 11.3, Baso % (Auto) 0.2, Neut # (Auto) 6.3, Lymph # (Auto) 0.9, [place] # (Auto) 0.4, Eos # (Auto) 1.0 H, Baso # (Auto) 0.0, PT 11.9, INR 1.11 H, Sodium 138, Potassium 3.4 L, Chloride 101, Carbon Dioxide 30, Anion Gap 10.4, BUN 15, Creatinine 0.60 L, Estimated Creat Clear 142, Estimated GFR 137, Est GFR ( Amer) 166, Glucose 149 H, Lactate 1.1, Calcium 8.8, Total Bilirubin 0.3, AST 27, ALT 26, Alkaline Phosphatase 75, Troponin I < 0.01, Total Protein 7.5, Albumin 3.9, Globulin 3.6 H, Albumin/Globulin Ratio 1.1 05/08/23 07:42: VBG pH 7.39, VBG pCO2 44.8, VBG pO2 110.1 H, VBG HCO3 26.4, VBG Total CO2 27.8 H, VBG O2 Saturation 98.4 H, VBG Base Excess 1.4 05/08/23 09:02: SARS-CoV-2 (PCR) Not detected, Influenza A Untype (PCR) Not detected, Influenza Type B (PCR) Not detected 05/08/23 07:35 05/08/23 07:35 Orders (Tests/Meds): ED MEDICATIONS Generic Name Dose Route Start Last Admin Trade Name Freq PRN Reason Stop Dose Admin Acetaminophen 650 mg 05/08/23 11:43 Acetaminophen 325mg Tab PO 06/07/23 11:42 Q4HP PRN Fever or Mild Pain (1-3) Albuterol/Ipratropium 3 ml 05/08/23 12:00 Ipratropium/Albuterol 3 Ml Neb IH 06/07/23 11:59 Q6RT MCKAY Enoxaparin Sodium 40 mg 05/09/23 09:00 Enoxaparin 40mg/0.4ml Syringe SQ 06/08/23 08:59 DAILY MCKAY Azithromycin 500 mg/ Sodium 250 mls @ 250 mls/hr 05/08/23 07:45 05/08/23 08:55 Chloride IV 05/18/23 07:44 250 mls/hr Q24H MCKAY Administration Piperacillin Sod/Tazobactam 100 mls @ 200 mls/hr 05/08/23 11:45 Sod 4.5 gm/ Sodium Chloride IV 05/18/23 11:44 Q6H MCKAY Lactated Ringer's 1,000 mls @ 50 mls/hr 05/08/23 11:45 Lactated Ringer's 1000 Ml Bag IV 01/05/24 11:44 .Q20H MCKAY Sodium Chloride 3 ml 05/08/23 11:48 Sodium Chloride 3% 15ml [facility] 06/07/23 11:47 ONCE PRN INDUCE SPUTUM COLLECTION Discontinued Medications Generic Name Dose Route Start Last Admin Trade Name Freq PRN Reason Stop Dose Admin Albuterol/Ipratropium 3 ml 05/08/23 07:45 05/08/23 08:00 Ipratropium/Albuterol 3 Ml [facility] 05/08/23 07:46 3 ml ONCE ONE Administration Albuterol/Ipratropium 3 ml 05/08/23 09:13 05/08/23 09:13 Ipratropium/Albuterol 3 Ml [facility] 05/08/23 09:14 3 ml ONCE ONE Administration Albuterol/Ipratropium 9 ml 05/08/23 10:52 05/08/23 10:55 Ipratropium/Albuterol 3 Ml [facility] 05/08/23 10:53 9 ml ONCE ONE Administration Sodium Chloride 1,000 mls @ 999 mls/hr 05/08/23 07:42 05/08/23 07:53 Sod Chlor 0.9% 1000ml Bag IV 05/08/23 08:42 999 mls/hr .Q1H1M ONE Administration Ceftriaxone Sodium 2 gm/ 50 mls @ 100 mls/hr 05/08/23 07:45 05/08/23 08:08 Sodium Chloride IV 05/18/23 07:44 100 mls/hr Q24H MCKAY Administration Iopamidol 75 ml 05/08/23 08:29 05/08/23 08:33 Iopamidol-370 (76%);100ml Bottle IV 05/08/23 08:30 75 ml ONCE ONE Administration Sodium Chloride 50 ml 05/08/23 08:29 05/08/23 08:33 0.9 % Sodium Chloride 50 Ml Vial IV 05/08/23 08:30 50 ml ONCE ONE Administration Sodium Chloride 10 ml 05/08/23 08:29 05/08/23 08:33 Sodium Chloride 0.9% 10ml Syr (Rad Only) IV 05/08/23 08:30 10 ml ONCE ONE Administration Sodium Chloride 2 ml 05/08/23 09:13 05/08/23 09:13 Sodium Chloride Nasal Distant 44ml NS 05/08/23 09:14 4 spray ONCE ONE Administration ORDERS Category Date Time Status CT angio chest PE protocol Stat Cat Scan 05/08/23 07:42 Taken Consult to Pulmonology [CONS] Stat Cons 05/08/23 11:21 Active CBC w/Auto Diff [Complete Blood Count Auto Diff] Stat Lab 05/08/23 07:35 Completed CMP [Comprehensive Metabolic Panel] Stat Lab 05/08/23 07:35 Completed Complete Blood Count Auto Diff AMLAB Lab 05/09/23 06:00 Ordered Comprehensive Metabolic Panel AMLAB Lab 05/09/23 06:00 Ordered Lactic Acid Stat Lab 05/08/23 07:35 Completed Magnesium AMLAB Lab 05/09/23 06:00 Ordered PT INR [Prothrombin Time INR] Stat Lab 05/08/23 07:35 Completed Rapid PCR Covid and Flu A/B Stat Lab 05/08/23 09:02 Completed Trop I [Troponin I] Stat Lab 05/08/23 07:35 Completed Blood Culture Stat Micro 05/08/23 08:05 Received Sputum Culture & Gram Stain Stat Micro 05/08/23 11:48 Ordered VBG [Venous Blood Gas] Stat RT 05/08/23 07:42 Completed ECG initial [place] Routine Y 05/08/23 07:30 Completed Medical Decision Narrative: Patient is a 62-year-old male, has a history of COPD, type 2 diabetes, left upper lobe lung cancer s/p radiation treatment, currently on immunotherapy infusions presenting to the emergency department with progressively worsening shortness of breath, acutely worsening this morning. Patient was hemodynamically stable, saturating in the mid 90s on 4 L nasal cannula, afebrile and at his baseline mental status on arrival to the emergency department. On physical exam, patient is tachypneic with a respiratory rate in the 20s, has significantly diminished breath sounds in the left chest. Is tachycardic with a heart rate in the 120s to 130s. Abdomen is soft and nontender. Patient is moving all extremities without difficulty, pupils are equal and reactive bilaterally. Patient is able to speak in complete sentences. Differential diagnosis includes postobstructive pneumonia, enlarging left upper lobe mass, PE, VA, angina, COPD exacerbation, pleuritic chest pain, pleurisy. However, given patient's prior CT scan that demonstrated increase in size of the large left upper lobe mass, which at that time encased the left hilum, left upper lobe pulmonary arteries, I am concerned that this mass has further increased in size with compression of the structures. Additionally, if patient has a postobstructive pneumonia, and has had persistent symptoms despite previous antibiotic treatment, feel that patient warrants IV antibiotics at this time. Given this, workup will be broad including CMP, CBC with differential, troponin, lactate, VBG, EKG, CT PE protocol with plan to obtain delays in order to further assess possible infectious component in the left lung. Patient was given 1 L bolus of normal saline as well as a DuoNeb treatment, started on IV ceftriaxone, azithromycin. Patient remains on 4 L nasal cannula. EKG demonstrated sinus tachycardia, no ST elevation or depression that would be concerning for STEMI. Laboratory workup was largely nonactionable, patient has a normal white count, creatinine is 0.60. COVID swab is negative. I personally reviewed and interpreted CT imaging and discussed with radiology, patient does have a large left upper lobe necrotic mass with opacities, could be food service representative of un derlying infectious process versus malignancy. Given that patient is followed by oncology at , was called for possible transfer for treatment of postobstructive pneumonia as well as worsening left upper lobe mass. However, following discussion with , they do not currently have any beds available but patient will be placed on the waiting list for transfer. Given this, hospital medicine was then consulted for admission. Following interactive discussion and consultation with hospital medicine, pulmonology, recommended adding on Zosyn for broader coverage given that patient does have a history of immunosuppression. Zosyn was then started. Patient will then be admitted pending possible transfer to . Further workup and management per admitting team. Critical Care Critical Care Time Critical Care Time: No
[2023-05-08 07:59] LABS: Chloride 101 mmol/L (98-107)
--- NOTE | 2023-05-08 07:59 | PC.NURSE ---
Radiology notified of CTA order. Respiratory at bedside for concepcion solorio.
[2023-05-08 08:00] LABS: Potassium 3.4 mmoL/L (3.5-5.1); Sodium 138 mmol/L (136-145)
[2023-05-08] MEDS: IPRATROPIUM/ALBUTEROL 3 ML NEB IH ×6 (08:00→21:00)
[2023-05-08 08:02] LABS: VBG Base Excess 1.4 mmol/L (-2.4-2.3); VBG HCO3 26.4 mmol/L (23-30); VBG Oxygen Saturation 98.4 % (50-70); VBG PCO2 44.8 mmol/L (35-51); VBG PH 7.39 mmol/L (7.31-7.41); VBG PO2 110.1 mmol/L (28-40); VBG Total CO2 27.8 mmol/L (23-27)
[2023-05-08 08:02] LABS: Alanine Aminotransferase 26 U/L (12-78); Albumin Level 3.9 g/dl (3.5-5.0); Albumin/Globulin Ratio 1.1 (1.1-1.8); Alkaline Phosphatase 75 U/L (38-126); Anion Gap 10.4 mEq/L (5-15); Aspartate Amino Transferase 27 U/L (17-59); Bilirubin,Total 0.3 mg/dl (0.2-1.3); Blood Urea Nitrogen 15 mg/dl (9-20); Carbon Dioxide 30 mmol/L (22.0-30.0); Creatinine Clearance Estimated 142 mL/min (50-200); Estimated Glomerular Filt Rate 137 ml/min (>60); GFR (African American) 166 ML/MIN (>60); Globulin 3.6 g/dL (1.3-3.2); Total Protein,Serum 7.5 g/dl (6.3-8.2)
[2023-05-08 08:03] LABS: Calcium 8.8 mg/dl (8.4-10.2); Glucose 149 mg/dl (74-100)
[2023-05-08 08:07] LABS: Lactic Acid 1.1 mmol/L (0.7-2.1)
[2023-05-08 08:08] LABS: INR 1.11 (0.9-1.1); Prothrombin Time 11.9 seconds (10.1-12.5)
[2023-05-08] MEDS: CEFTRIAXONE SODIUM 2 GM in 0.9 % SODIUM CHLORIDE 50 ML IV (08:08)
[2023-05-08 08:15] LABS: Troponin I < 0.01 ng/ml (0.00-0.034)
--- NOTE | 2023-05-08 08:25 | PC.NURSE ---
Pt taken to CT scan via wheelchair
[2023-05-08] MEDS: 0.9 % SODIUM CHLORIDE 50 ML VIAL IV (08:33)
[2023-05-08] MEDS: SODIUM CHLORIDE 0.9% 10ML SYR (RAD ONLY) 10 ML IV (08:33)
[2023-05-08] MEDS: IOPAMIDOL-370 (76%);100ML BOTTLE 75 ML IV (08:33)
--- NOTE | 2023-05-08 08:35 | PC.NURSE ---
pt back from CT scan
--- NOTE | 2023-05-08 08:35 | PC.NURSE ---
pt returned from ct
[2023-05-08] MEDS: AZITHROMYCIN 500 MG in 0.9 % SODIUM CHLORIDE 250 ML 250 MG IV (08:55)
[2023-05-08 09:06] LABS: Basophils % 0.2 % (0.1-2.0); Eosinophils % 11.3 % (0.1-12.0); Hematocrit 38.3 % (42.0-52.0); Hemoglobin 12.6 g/dL (14.1-18.0); Lymphocytes # 0.9 K/mm3 (0.7-4.5); Lymphocytes % 10.1 % (10-50); Mean Corpuscular HGB Conc 32.8 g/dL (31.8-35.4); Mean Corpuscular Hemoglobin 26.6 pg (27.0-31.2); Mean Corpuscular Volume 81.1 fl (80-94); Mean Platelet Volume 7.3 fl (7.4-10.4); Monocytes # 0.4 K/mm3 (0.1-1.0); Monocytes % 4.5 % (1.7-9.3); Neutrophils # 6.3 K/mm3 (1.8-7.8); Neutrophils % 73.9 % (37.0-80.0); Platelet Count 392 K/mm3 (142-424); Red Blood Count 4.72 M/mm3 (4.60-6.20); Red Cell Distribution Width 17.5 % (11.5-17.5); White Blood Count 8.5 K/mm3 (4.8-10.8)
[2023-05-08 09:08] LABS: Coronavirus 19, PCR Not Detected (NotDetected); Influenza A, PCR Not Detected (NotDetected); Influenza B, PCR Not Detected (NotDetected)
[2023-05-08] MEDS: SODIUM CHLORIDE NASAL SPRAY 44ML NS (09:13)
--- NOTE | 2023-05-08 09:13 | PC.NURSE ---
Reassessed pt and he is reporting increased SOA and dyspnea. He also is reporting difficult breathing with the nasal cannula d/t his nose congested. Offered pt nasal spray and face mask. Reports the face mask is not helping. notified and ordered a 2nd duoneb.
--- NOTE | 2023-05-08 09:28 | PC.NURSE ---
BROTHER AT BEDSIDE
--- NOTE | 2023-05-08 09:56 | PC.NURSE ---
ASSISTED TO [facility]
--- NOTE | 2023-05-08 10:11 | PC.NURSE ---
checked with radiology d/t prolonged read time on CTA, they say the scan is in locked position so they should be reading it now . They are preparing a disc and have already power-shared to [facility].
--- NOTE | 2023-05-08 10:23 | PC.NURSE ---
DR DON AT BEDSIDE TO UPDATE PT
--- NOTE | 2023-05-08 10:51 | PC.NURSE ---
pt's sats dropped to 86% and he was struggling to breathe. Dr. Hickman notified and ordered 3 duoneb (9ml)
[2023-05-08] MEDS: IPRATROPIUM/ALBUTEROL 3 ML NEB 9 ML IH (10:55)
--- NOTE | 2023-05-08 11:14 | PC.NURSE ---
speaking with [facility]
--- NOTE | 2023-05-08 11:15 | PC.NURSE ---
pt being placed of waiting list at [facility] on phone with Dr Storey
--- NOTE | 2023-05-08 11:17 | PC.NURSE ---
Dr. Hickman s/w Dr. Storey for interim admission while on wait list for
--- NOTE | 2023-05-08 11:21 | PC.NURSE ---
paged for Dr. Rao for Pulmonongy consult.
--- NOTE | 2023-05-08 11:23 | PC.NURSE ---
S/w Patricia in Care Management, notify of admission & on [facility]'s wait list
--- NOTE | 2023-05-08 11:30 | PC.NURSE ---
called [facility] per Dr Hickman to speak with someone about this pt. called back and talked to the Doctor
--- NOTE | 2023-05-08 11:32 | PC.NURSE ---
dr dwyer speaking with dr tse
--- NOTE | 2023-05-08 11:49 | P.HP_ITS ---
History of Present Illness *Admission Date: 05/08/23 *Reason for visit:: dyspnea *History of present illness: Mr. Upton is a 62-year-old male with history of COPD, diabetes, left upper lobe lung cancer status post radiation treatment. He is currently been on immunotherapy infusions for continued treatment. Presented to the ER today with progressively worsening shortness of breath. Became worse this morning but states that has been progressing over the past month. Wears oxygen at night but has needed it continuously for the past 1 to 2 days. Was recently sent home on a course of antibiotics after evaluation for cough and possible pneumonia. He completed his course of antibiotics but has not had any improvement in symptoms. When he awoke this morning he had severe shortness of breath, some pain in his left upper chest, and difficulty breathing. He called EMS who administered a breathing treatment and brought him to the ER for further evaluation. He denies any nausea, vomiting, diarrhea, confusion, headache. He feels very anxious and gets minimal relief from his breathing treatments which used to give him improved symptom relief until recently. Currently requiring 2 L nasal cannula oxygen continuously. Eval in the ER concerning for sepsis with tachypnea, tachycardia, along with focal consolidation of left upper lobe. Chest imaging positive for dense pneumonia. Medicine and pulmonology consulted for management and admission. Patient negative for COVID and flu. On arrival to the floor, patient appears somewhat anxious. Coughing up dark thick sputum. Additional history as follows: Patient states that he was receiving immunotherapy yesterday at [facility] when he was advised to go to the hospital/ER for further evaluation. Seen in the ER at where he had to wait in a noland bed and was being treated for pneumonia. He was concerned because of his exposure to all the other sick people in the hospital. He therefore left and went home. He presented to the ER because of worsening symptoms and is hesitant to consider transfer at this time. ER however did consult , patient currently on the wait list. [facility] Disclaimer: The information contained in this section may have been updated after the patient was seen, as this information can be updated by other users. Medical History Abnormal computerized axial tomography of chest Acute respiratory failure with hypoxia Candidiasis of mouth COPD mixed type Cough Diabetes mellitus, type 2 Dyspnea on exertion Encounter for screening for diabetes mellitus Establishing care with new doctor, encounter for Hilar lymphadenopathy Insomnia Lung cancer, upper lobe Lung mass Mediastinal lymphadenopathy Pneumonia Pneumonia Primary lung cancer Pulmonary emphysema Pulmonary nodules Smoking greater than 30 pack years Surgical History History of bronchoscopy History of local excision of skin lesion Family History Grandmother Mother COPD (chronic obstructive pulmonary disease) Mother Cancer Grandmother Mother Social History Smoking Status: Former smoker tobacco type: cigarettes packs per day: 1 years smoked: 43 alcohol intake: current substance use type: denies use current occupational status: unemployed Travel in the last 8 weeks: Inside the [place] Review of Systems Review of Systems Review of systems (narrative): 14 point review of systems performed, pertinent positives and negatives as per [facility] Meds Home Medications and Allergies Home Medications Medication Instructions Recorded Confirmed Type blood sugar diagnostic (FreeStyle 12/05/22 05/08/23 History Lite Strips) blood-glucose meter (FreeStyle 12/05/22 05/08/23 History Lite Meter kit) lancets 28 gauge (FreeStyle 12/05/22 05/08/23 History Lancets) metformin 500 mg tablet 500 mg PO DAILY Diabetes 02/07/23 05/08/23 History albuterol sulfate 1.25 mg/3 mL 1.25 mg inhalation QIDP PRN 05/08/23 05/08/23 History solution for nebulization shortness of breath or wheezing albuterol sulfate 90 mcg/actuation 2 puff inhalation Q4HP PRN 05/08/23 05/08/23 History aerosol inhaler (Ventolin HFA) shortness of breath or wheezing bupropion HCl 150 mg tablet,12 hr 150 mg PO BID Smoking Cessation 05/08/23 05/08/23 History sustained-release hydrocodone 5 mg-acetaminophen 325 1 tab PO QIDP PRN Moderate Pain 05/08/23 05/08/23 History mg tablet (Scale Score 5-6) ibuprofen 800 mg tablet 800 mg PO TIDP PRN Mild Pain 05/08/23 05/08/23 History (Scale Score 1-4) ipratropium 0.5 mg-albuterol 3 mg 3 ml inhalation QIDP PRN shortness 05/08/23 05/08/23 History (2.5 mg base)/3 mL nebulization of breath or wheezing soln ondansetron 4 mg disintegrating 4 mg PO Q8HP PRN nausea and 05/08/23 05/08/23 History tablet vomiting tiotropium 2.5 mcg-olodaterol 2.5 2 puff inhalation DAILY Breathing 05/08/23 05/08/23 History mcg/actuation mist for inhalation Problems (Stiolto Respimat) New Prescriptions to Start Prescriptions: Allergies Allergy/AdvReac Type Severity Reaction Status Date / Time No Known Allergies Allergy Unverified 05/08/23 14:34 Exam Data for Last 24 hours Vital signs and Labs for Last 24 Hours: Temp Pulse Resp BP Pulse Ox O2 Del Method O2 Flow Rate 97.4 F L 116 H 29 H 131/67 97 Nasal Cannula 3.5 05/08/23 07:44 05/08/23 11:00 05/08/23 10:30 05/08/23 11:00 05/08/23 11:00 05/08/23 11:00 05/08/23 11:00 Laboratory Results - last 24 hr 05/08/23 07:35: WBC 8.5, RBC 4.72, Hgb 12.6 L, Hct 38.3 L, MCV 81.1, MCH 26.6 L, MCHC 32.8, RDW 17.5, Plt Count 392, MPV 7.3 L, Neut % (Auto) 73.9, Lymph % (Auto) 10.1, [place] % (Auto) 4.5, Eos % (Auto) 11.3, Baso % (Auto) 0.2, Neut # (Auto) 6.3, Lymph # (Auto) 0.9, [place] # (Auto) 0.4, Eos # (Auto) 1.0 H, Baso # (Auto) 0.0, PT 11.9, INR 1.11 H, Sodium 138, Potassium 3.4 L, Chloride 101, Carbon Dioxide 30, Anion Gap 10.4, BUN 15, Creatinine 0.60 L, Estimated Creat Clear 142, Estimated GFR 137, Est GFR ( Amer) 166, Glucose 149 H, Lactate 1.1, Calcium 8.8, Total Bilirubin 0.3, AST 27, ALT 26, Alkaline Phosphatase 75, Troponin I < 0.01, Total Protein 7.5, Albumin 3.9, Globulin 3.6 H, Albumin/Globulin Ratio 1.1 05/08/23 07:42: VBG pH 7.39, VBG pCO2 44.8, VBG pO2 110.1 H, VBG HCO3 26.4, VBG Total CO2 27.8 H, VBG O2 Saturation 98.4 H, VBG Base Excess 1.4 05/08/23 09:02: SARS-CoV-2 (PCR) Not detected, Influenza A Untype (PCR) Not detected, Influenza Type B (PCR) Not detected I & O for Last 24 hours: Intake & Output 05/05/23 05/06/23 05/07/23 05/08/23 23:59 23:59 23:59 23:59 Weight 76.43 kg Constitutional Constitutional: mild distress, average body habitus, chronically ill appearing and cooperative *Routine HEENT Exam Head: Present normocephalic Eye: Present EOMI and PERRL ENT: Present mucous membranes moist *Routine Neck Exam Neck: Present supple; Absent lymphadenopathy Routine Chest/Breast/Axilla Exam Chest wall: Absent tenderness *Routine Respiratory Exam Respiratory: Present accessory muscle use, rhonchi and diminished air movement; Absent wheezes or crackles Comments: Egophony in left upper lobe *Routine Cardiovascular Exam Cardiovascular: Present tachycardia *Routine Abdominal Exam Abdominal: Present soft and normoactive bowel sounds; Absent tenderness *Routine Rectal Exam Rectal:: deferred *Routine Genitalia Exam Genitalia:: deferred *Routine Extremities Exam Extremities: Absent cyanosis, clubbing or edema *Routine Skin Exam Skin: Present warm; Absent rash *Routine Neurological Exam Neurological: Present alert, oriented X3 and moving all extremities; Absent altered mental status Assessment and Plan *Assessment and plan (1) Acute respiratory failure with hypoxia: Status: Acute Category: Medical Code(s): J96.01 - Acute respiratory failure with hypoxia (2) Primary lung cancer: Status: Acute Qualifiers: Laterality: left Qualified Code(s): C34.92 - Malignant neoplasm of unspecified part of left bronchus or lung Category: Medical Code(s): C34.90 - Malignant neoplasm of unspecified part of unspecified bronchus or lung (3) Pneumonia: Status: Acute Qualifiers: Laterality: left Lung location: upper lobe of lung Pneumonia type: due to unspecified organism Qualified Code(s): J18.9 - Pneumonia, unspecified organism Category: Medical Code(s): J18.9 - Pneumonia, unspecified organism (4) Postobstructive pneumonia: Status: Acute Category: Medical Code(s): J18.9 - Pneumonia, unspecified organism (5) COPD mixed type: Status: Acute Category: Medical Code(s): J44.9 - Chronic obstructive pulmonary disease, unspecified (6) Diabetes mellitus: Status: Chronic Qualifiers: Diabetes mellitus type: type 2 Category: Medical Code(s): E11.9 - Type 2 diabetes mellitus without complications Plan 62-year-old male with history of lung cancer who presents with worsening shortness of breath. Concern for postobstructive pneumonia. Discussed case with ER physician, request admission for antibiotics, pulmonary consult, further management while awaits potential transfer to . Medicine agreed to admit for further management. Problems addressed as follows: Acute respiratory failure with hypoxia Postobstructive pneumonia Lung cancer -Pulmonology consulted, appreciate their recommendations. Discussed case with travel ticketing reviewer. Will continue Zosyn pending blood and sputum cultures. Will hold on bronchoscopy at this time as patient is on wait list for . -Continue DuoNebs every 6 hours scheduled with every 6 hours as needed. -Initiate flutter valve and spirometry. -Supplemental oxygen, goal sats greater 90%. Currently on 2 L. -Awaiting records from -Continue hydrocodone 5 mg every 6 hours as needed for pain as well as tramadol 30 mg every 6 hours as needed IV. Monitor for toxicity. -White cell count normal on labs. Repeat CMP, CBC, magnesium ordered for the morning. Diabetes - A1c pending -Sliding scale insulin with fingersticks ACHS. Continue metformin 500 mg daily. Full code Regular diet Lovenox subcu DVT prophylaxis
--- NOTE | 2023-05-08 12:34 | PC.NURSE ---
REPORT GIVEN TO CARLOS IRVING
[2023-05-08] MEDS: PIPERACILLIN/TAZO 4.5 GM in 0.9 % SODIUM CHLORIDE 100 ML IV ×3 (12:36→23:24)
--- NOTE | 2023-05-08 12:39 | PC.NURSE ---
Called dietary to report pt is headed to the 2nd floor and take him a tray there
--- NOTE | 2023-05-08 13:00 | PC.NURSE ---
Rounded on patient; Requesting a breathing treatment, respiratory notified.
[2023-05-08] MEDS: SODIUM CHLORIDE 3% 15ML NEB 3 ML IH (13:15)
--- NOTE | 2023-05-08 13:53 | HMH.PHAINT1 ---
Pharmacy Intervention Comments: MEDICATION RECONCILIATION COMPLETED ON PATIENT USING EXTERNAL FILL HISTORY FROM PHARMACY. -MARLO RAMAN, DEVIND
[2023-05-08] MEDS: KETOROLAC 30MG/ML VIAL 30 MG IV (14:38)
--- NOTE | 2023-05-08 15:39 | EXP.PULM.CON ---
History of Present Illness History of present illness: Mr. 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 [facility] Disclaimer: The information contained in this section may have been updated after the patient was seen, as this information can be updated by other users. Medical History Abnormal computerized axial tomography of chest Acute respiratory failure with hypoxia Candidiasis of mouth COPD mixed type Cough Diabetes mellitus, type 2 Dyspnea on exertion Encounter for screening for diabetes mellitus Establishing care with new doctor, encounter for Hilar lymphadenopathy Insomnia Lung cancer, upper lobe Lung mass Mediastinal lymphadenopathy Pneumonia Pneumonia Primary lung cancer Pulmonary emphysema Pulmonary nodules Smoking greater than 30 pack years Surgical History History of bronchoscopy History of local excision of skin lesion Family History Grandmother Cancer Mother , at age 54 COPD (chronic obstructive pulmonary disease) Cancer Social History (Updated 05/08/23 @ 13:45 by Aisha Solorio RN) Smoking Status: Former smoker tobacco type: cigarettes packs per day: 1 years smoked: 43 alcohol intake: current substance use type: denies use current occupational status: unemployed Travel in the last 8 weeks: [place] the [place] Review of Systems Constitutional Constitutional: Reports anorexia, Reports body ache(s) and Reports fatigue Eyes Eyes: Denies eye discharge, Denies dry eyes, Denies irritation and Denies itchy eyes ENT Ears, Nose, Mouth, and Throat: Denies epistaxis, Denies facial pain, Denies lip swelling and Denies throat swelling *Cardiovascular Cardiovascular: Reports dyspnea and Reports dyspnea on exertion *Respiratory Respiratory: Reports chest congestion, Reports cough, Reports dyspnea, Reports dyspnea on exertion, Reports excessive phlegm production and Reports wheezing *Gastrointestinal Gastrointestinal: Denies abdominal pain, Denies belching and Denies cramping *Musculoskeletal Musculoskeletal: Reports back pain, Reports myalgias and Reports other (No small joint swelling or Pain) Psychiatric Psychiatric: Denies homicidal ideation and Denies suicidal ideation Endocrine Endocrine: Reports fatigue and Denies heat intolerance Hematologic/Lymphatic Hematologic/Lymphatic: Denies easy bleeding and Denies lymphadenopathy Allergic/Immunologic Allergic/Immunologic: Denies itchy eyes, Denies lip swelling, Denies throat swelling and Reports wheezing Pulmonology Exam Inpatient Vital signs and Labs for Last 24 Hours: Temp Pulse Resp BP Pulse Ox O2 Del Method O2 Flow Rate 97.9 F 121 H 22 136/70 97 Nasal Cannula 3 05/08/23 12:44 05/08/23 15:35 05/08/23 14:00 05/08/23 14:00 05/08/23 14:00 05/08/23 14:00 05/08/23 14:00 Laboratory Results - last 24 hr 05/08/23 07:35: WBC 8.5, RBC 4.72, Hgb 12.6 L, Hct 38.3 L, MCV 81.1, MCH 26.6 L, MCHC 32.8, RDW 17.5, Plt Count 392, MPV 7.3 L, Neut % (Auto) 73.9, Lymph % (Auto) 10.1, [place] % (Auto) 4.5, Eos % (Auto) 11.3, Baso % (Auto) 0.2, Neut # (Auto) 6.3, Lymph # (Auto) 0.9, [place] # (Auto) 0.4, Eos # (Auto) 1.0 H, Baso # (Auto) 0.0, PT 11.9, INR 1.11 H, Sodium 138, Potassium 3.4 L, Chloride 101, Carbon Dioxide 30, Anion Gap 10.4, BUN 15, Creatinine 0.60 L, Estimated Creat Clear 142, Estimated GFR 137, Est GFR ( Amer) 166, Glucose 149 H, Lactate 1.1, Calcium 8.8, Total Bilirubin 0.3, AST 27, ALT 26, Alkaline Phosphatase 75, Troponin I < 0.01, Total Protein 7.5, Albumin 3.9, Globulin 3.6 H, Albumin/Globulin Ratio 1.1 05/08/23 07:42: VBG pH 7.39, VBG pCO2 44.8, VBG pO2 110.1 H, VBG HCO3 26.4, VBG Total CO2 27.8 H, VBG O2 Saturation 98.4 H, VBG Base Excess 1.4 05/08/23 09:02: SARS-CoV-2 (PCR) Not detected, Influenza A Untype (PCR) Not detected, Influenza Type B (PCR) Not detected I & O for Labs for Last 24 Hours: Intake & Output 05/05/23 05/06/23 05/07/23 05/08/23 23:59 23:59 23:59 23:59 Weight 162 lb 4.163 oz Constitutional: Present moderate distress Head: Present normocephalic and atraumatic ENT: Present normal exam, normal oropharynx and mucous membranes moist Neck: Present normal inspection and full ROM Respiratory: Present respiratory distress, rhonchi, diminished air movement and able to speak in complete sentences Cardiac: Present S1/S2, Tachycardia and radial pulses present GI: Present soft and distention; Absent tenderness or guarding Skin: Present intact; Absent cyanosis or jaundice Neuro: Present alert, awake and oriented x 3 Extremities: Present normal inspection; Absent clubbing or cyanosis Psychiatric: Present normal affect and cooperative Meds Home Medications and Allergies Home Medications Medication Instructions Recorded Confirmed Type blood sugar diagnostic ([facility] 05/08/23 History Lite Strips) blood-glucose meter ([facility] 12[facility]05[facility]22 05/08/23 History Lite Meter kit) lancets 28 gauge (FreeStyle 12/05/22 05/08/23 History Lancets) metformin 500 mg tablet 500 mg PO DAILY Diabetes 02/07/23 05/08/23 History albuterol sulfate 1.25 mg/3 mL 1.25 mg inhalation QIDP PRN 05/08/23 05/08/23 History solution for nebulization shortness of breath or wheezing albuterol sulfate 90 mcg/actuation 2 puff inhalation Q4HP PRN 05/08/23 05/08/23 History aerosol inhaler (Ventolin HFA) shortness of breath or wheezing bupropion HCl 150 mg tablet,12 hr 150 mg PO BID Smoking Cessation 05/08/23 05/08/23 History sustained-release hydrocodone 5 mg-acetaminophen 325 1 tab PO QIDP PRN Moderate Pain 05/08/23 05/08/23 History mg tablet (Scale Score 5-6) ibuprofen 800 mg tablet 800 mg PO TIDP PRN Mild Pain 05/08/23 05/08/23 History (Scale Score 1-4) ipratropium 0.5 mg-albuterol 3 mg 3 ml inhalation QIDP PRN shortness 05/08/23 05/08/23 History (2.5 mg base)/3 mL nebulization of breath or wheezing soln ondansetron 4 mg disintegrating 4 mg PO Q8HP PRN nausea and 05/08/23 05/08/23 History tablet vomiting tiotropium 2.5 mcg-olodaterol 2.5 2 puff inhalation DAILY Breathing 05/08/23 05/08/23 History mcg/actuation mist for inhalation Problems (Stiolto Respimat) New Prescriptions to Start Prescriptions: Allergies Allergy/AdvReac Type Severity Reaction Status Date / Time No Known Allergies Allergy Unverified 05/08/23 14:34 Results Laboratory Findings 05/08/23 07:35 05/08/23 07:35 PT/INR, D-dimer PT 11.9 seconds (10.1-12.5) 05/08/23 07:35 INR 1.11 (0.9-1.1) H 05/08/23 07:35 Abnormal lab findings: Abnormal Labs 05/08/23 05/08/23 07:35 07:42 Hgb 12.6 L Hct 38.3 L MCH 26.6 L MPV 7.3 L Eos # (Auto) 1.0 H INR 1.11 H VBG pO2 110.1 H VBG Total CO2 27.8 H VBG O2 Saturation 98.4 H Potassium 3.4 L Creatinine 0.60 L Glucose 149 H Globulin 3.6 H Assessment and Plan *Assessment and plan (1) Primary lung cancer: Status: Acute Qualifiers: Laterality: left Qualified Code(s): C34.92 - Malignant neoplasm of unspecified part of left bronchus or lung Category: Medical Code(s): C34.90 - Malignant neoplasm of unspecified part of unspecified bronchus or lung (2) Pneumonia: Status: Acute Qualifiers: Laterality: left Lung location: upper lobe of lung Pneumonia type: due to unspecified organism Qualified Code(s): J18.9 - Pneumonia, unspecified organism Category: Medical Code(s): J18.9 - Pneumonia, unspecified organism (3) Acute respiratory failure with hypoxia: Status: Acute Category: Medical Code(s): J96.01 - Acute respiratory failure with hypoxia (4) Postobstructive pneumonia: Status: Acute Category: Medical Code(s): J18.9 - Pneumonia, unspecified organism Plan Mr. 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 Patient currently follows Dr. Astudillo at [facility] for treatment of his cancer. As per the patient he was not able to tolerate chemotherapy, followed by completion of radiation therapy around December 2022 and currently receiving immunotherapy. CT scan of the on this admission reviewed and compared to prior CT scan, overall appears to be increasing size of the noted lung mass along with adjacent left upper lobe atelectasis/postobstructive pneumonia along with narrowing of the left upper lobe airways and postobstructive pneumonia is likely a sequelae of tumor progression or airway compression/radiation induced airway narrowing is not clear at this point of time. The possibility of radiation injury less likely however we will obtain any recent imaging regarding the timeline of current events and the start of pulmonary infiltrates on his imaging Patient requested to transfer to [facility] at this point of time. Examination appears to be in respiratory distress, needing supplementation to maintain O2 saturation goal of 90% and above. Plan: Obtain records from [facility] along with most recent imaging Continue Zosyn pending blood and sputum cultures Flutter valve and incentive spirometer DuoNebs every 6 hours scheduled along with every 6 as needed Will hold off on bronchoscopy at this point of time given patient on wait list for [facility].
[2023-05-08 20:35] LABS: POC Glucose,Bedside 122 (70-110)
[2023-05-08] MEDS: HYDROCODONE/APAP 5/325 MG TABLET 1 TAB PO (20:41)
[2023-05-08] MEDS: TRAZODONE 50MG TABLET 100 MG PO (21:00)
--- NOTE | 2023-05-08 21:00 | PC.NURSE ---
Addendum entered by Oma Perea RN 05/08/23 21:25: RT notified for PRN breathing tx. RT at bedside at 2039 administering PRN breathing tx. Original Note: Upon pt rounding, pt c/o severe SOB on 2 L NC. Pt SpO2 98-100%, sitting High-Dai's on side of bed, tachypneic at 30 RR, visibly anxious. Pt verbalized he normally uses his albuterol rescue inahler for SOB PRN, and states he uses it up to six times a day. Educated pt regarding current Duoneb tx and inability to prescribe rescue inhaler. Attempted to educate pt on breathing techniques to relieve anxiety. Pt stated frustration and disappointment as he uses his rescue inhaler often for his SOB. Verbalized current POC again, as stated by Dr. Storey. Pt verbalized understanding at this time. Pt also c/o insomnia, which has been exacerbated by SOB. Trazadone ordered by ADDIE Kapadia. Educated pt on trazadone and PRN Dinosaur. Pt verbalized understanding at this time.
[2023-05-09] VITALS (17 sets, daily range): BP systolic 118–184; BP diastolic 68–88; PULSE 85–120; RESP 18–30; TEMP 36.4–36.9; O2SAT 93–98; BMI 25.4
[2023-05-09] MEDS: IPRATROPIUM/ALBUTEROL 3 ML NEB IH ×6 (00:03→22:34)
[2023-05-09] MEDS: HYDROCODONE/APAP 5/325 MG TABLET 1 TAB PO ×4 (03:51→23:00)
[2023-05-09] MEDS: OXYMETAZOLINE NASAL SPRAY 0.05% 15ML NS ×2 (04:05→09:11)
[2023-05-09] MEDS: PIPERACILLIN/TAZO 4.5 GM in 0.9 % SODIUM CHLORIDE 100 ML IV ×4 (05:33→23:00)
--- NOTE | 2023-05-09 06:08 | PC.NURSE ---
Shift Summary: Pt AOx4, requiring minimal assistance at bedside, intermittently very anxious regarding SOB and breathing. Pt also anxious regarding insomina, though stated trazadone effective. Pt slightly tachycardic (100-120's on exertion) and tachypneic (22-30 RR) throughout shift, tolerating 2 L NC humidified. Pt c/o SOB and severe nasal congestion that impeded breathing throughout shift. Pt educated multiple times throughout shift regarding Duoneb schedule, maintaining minimal O2 requirements, and breathing techniques to relieve SOB, pt verbalized but required reinforcement. PRN Afrin nasal spray, pt verbalized significant relief after administration. Otherwise, no acute issues or events overnight. Call light within reach and fall precautions implemented.
[2023-05-09 06:48] LABS: Basophils % 0.3 % (0.1-2.0); Eosinophils % 14.9 % (0.1-12.0); Hematocrit 34.7 % (42.0-52.0); Hemoglobin 11.5 g/dL (14.1-18.0); Lymphocytes # 0.9 K/mm3 (0.7-4.5); Lymphocytes % 13.6 % (10-50); Mean Corpuscular HGB Conc 33.1 g/dL (31.8-35.4); Mean Corpuscular Hemoglobin 27.3 pg (27.0-31.2); Mean Corpuscular Volume 82.6 fl (80-94); Mean Platelet Volume 6.4 fl (7.4-10.4); Monocytes # 0.3 K/mm3 (0.1-1.0); Monocytes % 4.7 % (1.7-9.3); Neutrophils # 4.5 K/mm3 (1.8-7.8); Neutrophils % 66.6 % (37.0-80.0); POC Glucose,Bedside 123 (70-110); Platelet Count 383 K/mm3 (142-424); Red Cell Distribution Width 16.7 % (11.5-17.5); White Blood Count 6.7 K/mm3 (4.8-10.8)
[2023-05-09] MEDS: AZITHROMYCIN 500 MG in 0.9 % SODIUM CHLORIDE 250 ML 250 MG IV (06:51)
[2023-05-09 07:00] LABS: Chloride 101 mmol/L (98-107); Potassium 3.7 mmoL/L (3.5-5.1)
[2023-05-09 07:03] LABS: Alanine Aminotransferase 29 U/L (12-78); Albumin Level 3.6 g/dl (3.5-5.0); Albumin/Globulin Ratio 1.1 (1.1-1.8); Alkaline Phosphatase 60 U/L (38-126); Aspartate Amino Transferase 46 U/L (17-59); Bilirubin,Total 0.3 mg/dl (0.2-1.3); Blood Urea Nitrogen 8 mg/dl (9-20); Calcium 8.6 mg/dl (8.4-10.2); Carbon Dioxide 35 mmol/L (22.0-30.0); Creatinine Clearance Estimated 136 mL/min (50-200); Estimated Glomerular Filt Rate 137 ml/min (>60); GFR (African American) 166 ML/MIN (>60); Globulin 3.3 g/dL (1.3-3.2); Glucose 128 mg/dl (74-100); Magnesium 1.9 mg/dl (1.6-2.3); Total Protein,Serum 6.9 g/dl (6.3-8.2)
[2023-05-09 08:07] LABS: Hemoglobin A1C 6.4 % (4.0-6.0)
[2023-05-09] MEDS: buPROPion HCl SR 150MG TAB 150 MG PO (09:10)
[2023-05-09] MEDS: ENOXAPARIN 40MG/0.4ML SYRINGE 40 MG SQ (09:10)
--- NOTE | 2023-05-09 10:03 | P.PN_ITS ---
Subjective *Date: 05/09/23 *Time: 14:19 Interval history: No acute respiratory vents overnight. Patient denies any new respiratory complaints. Pulmonology Exam Inpatient Vital signs and Labs for Last 24 Hours: Temp Pulse Resp BP Pulse Ox O2 Del Method O2 Flow Rate 97.9 F 91 H 22 136/75 96 Nasal Cannula 2 05/09/23 08:00 05/09/23 08:00 05/09/23 06:00 05/09/23 06:00 05/09/23 08:00 05/09/23 08:00 05/09/23 08:00 FiO2 2 05/09/23 00:00 Laboratory Results - last 24 hr 05/08/23 09:02: SARS-CoV-2 (PCR) Not detected, Influenza A Untype (PCR) Not detected, Influenza Type B (PCR) Not detected 05/08/23 20:26: POC Glucose 122 H 05/09/23 06:27: WBC 6.7, RBC 4.20 L, Hgb 11.5 L, Hct 34.7 L, MCV 82.6, MCH 27.3, MCHC 33.1, RDW 16.7, Plt Count 383, MPV 6.4 L, Neut % (Auto) 66.6, Lymph % (Auto) 13.6, [place] % (Auto) 4.7, Eos % (Auto) 14.9 H, Baso % (Auto) 0.3, Neut # (Auto) 4.5, Lymph # (Auto) 0.9, [place] # (Auto) 0.3, Eos # (Auto) 1.0 H, Baso # (Auto) 0.0, Sodium 138, Potassium 3.7, Chloride 101, Carbon Dioxide 35 H, BUN 8 L D, Creatinine 0.60 L, Estimated Creat Clear 136, Estimated GFR 137, Est GFR ( Amer) 166, Glucose 128 H, POC Glucose 123 H, Hemoglobin A1c 6.4 H, Calcium 8.6, Magnesium 1.9, Total Bilirubin 0.3, AST 46 D, ALT 29, Alkaline Phosphatase 60, Total Protein 6.9, Albumin 3.6, Globulin 3.3 H, Albumin/Globulin Ratio 1.1 I & O for Labs for Last 24 Hours: Intake & Output 05/06/23 05/07/23 05/08/23 05/09/23 23:59 23:59 23:59 23:59 Intake Total 100 / 440 700 / 700 Output Total 700 / 700 1000 / 1000 Balance -600 / -260 -300 / -300 Weight 162 lb 4.163 oz 161 lb 13.109 oz Constitutional: Present moderate distress Head: Present normocephalic and atraumatic ENT: Present normal exam, normal oropharynx and mucous membranes moist Neck: Present normal inspection and full ROM Respiratory: Present respiratory distress, rhonchi, diminished air movement and able to speak in complete sentences Cardiac: Present S1/S2, Tachycardia and radial pulses present GI: Present soft and distention; Absent tenderness or guarding Skin: Present intact; Absent cyanosis or jaundice Neuro: Present alert, awake and oriented x 3 Extremities: Present normal inspection; Absent clubbing or cyanosis Psychiatric: Present normal affect and cooperative Assessment and Plan *Assessment and plan (1) Primary lung cancer: Status: Acute Qualifiers: Laterality: left Qualified Code(s): C34.92 - Malignant neoplasm of unspecified part of left bronchus or lung Category: Medical Code(s): C34.90 - Malignant neoplasm of unspecified part of unspecified bronchus or lung (2) Pneumonia: Status: Acute Qualifiers: Laterality: left Lung location: upper lobe of lung Pneumonia type: due to unspecified organism Qualified Code(s): J18.9 - Pneumonia, unspecified organism Category: Medical Code(s): J18.9 - Pneumonia, unspecified organism (3) Acute respiratory failure with hypoxia: Status: Acute Category: Medical Code(s): J96.01 - Acute respiratory failure with hypoxia (4) Postobstructive pneumonia: Status: Acute Category: Medical Code(s): J18.9 - Pneumonia, unspecified organism Plan Mr. 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 Patient currently follows Dr. Astudillo at [facility] for treatment of his cancer. As per the patient he was not able to tolerate chemotherapy, followed by completion of radiation therapy around December 2022 and currently receiving immunotherapy. CT scan of the on this admission reviewed and compared to prior CT scan, overall appears to be increasing size of the noted lung mass along with adjacent left upper lobe atelectasis/postobstructive pneumonia along with narrowing of the left upper lobe airways and postobstructive pneumonia is likely a sequelae of tumor progression or airway compression/radiation induced airway narrowing is not clear at this point of time. The possibility of radiation injury less likely however we will obtain any recent imaging regarding the timeline of current events and the start of pulmonary infiltrates on his imaging Patient requested to transfer to [facility] at this point of time. On initial examination appears to be in respiratory distress, needing supplementation to maintain O2 saturation goal of 90% and above. CT imaging and notes from [facility] reviewed, patient noted to have radiation-induced fibrotic changes in the left upper lobe on the current changes we are seeing are a combination of postobstructive pneumonia along with radiation-induced fibrosis. Interval update: No acute respiratory vents overnight. Continued to be needing oxygen supplementation. Afebrile. No evidence of leukocytosis. Hemodynamically stable. Plan: Continue Zosyn pending blood and sputum cultures Flutter valve and incentive spirometer DuoNebs every 6 hours scheduled along with every 6 as needed Will hold off on bronchoscopy at this point of time given patient on wait list for [facility]. # Thank you for involving pulmonary in this patient care. Will continue to follow.
[2023-05-09] MEDS: ACETYLCYSTEINE 20% 4ML VIAL 4 ML IH (11:11)
[2023-05-09] MEDS: guaiFENesin 600 MG TAB.ER.12H 1200 MG PO ×2 (11:54→21:40)
[2023-05-09 12:38] LABS: POC Glucose,Bedside 126 (70-110)
[2023-05-09 15:16] LABS: Anion Gap 5.7 mEq/L (5-15); Sodium 138 mmol/L (136-145)
--- NOTE | 2023-05-09 16:27 | EXP.ACUTE.PN ---
Subjective *Date: 05/09/23 *Time: 16:27 Interval history: Patient states he feels a little bit better. Still having dyspnea. Stable on 2 L nasal cannula oxygen. No nausea or vomiting. No chest pain today. Afebrile. Blood pressure acceptable. Remains tachycardic. Medical Exam Vital signs and Labs for Last 24 Hours: Vital Signs Temp Pulse Pulse Resp BP Pulse Ox O2 Del Method 05/09/23 15:29 98.5 F 95 H 21 130/69 94 L Nasal Cannula 05/09/23 15:00 Nasal Cannula 05/09/23 12:00 120 H 05/09/23 13:00 Nasal Cannula 05/09/23 08:00 105 H 05/09/23 11:34 98.0 F 112 H 22 153/88 H 93 L Nasal Cannula 05/09/23 11:00 Nasal Cannula 05/09/23 11:17 115 H 05/09/23 11:17 106 H 05/09/23 11:17 96 Nasal Cannula 05/09/23 09:00 Nasal Cannula 05/09/23 10:00 103 H 22 184/68 H 97 Nasal Cannula 05/09/23 08:00 89 18 118/69 96 Nasal Cannula 05/09/23 08:00 91 H 96 Nasal Cannula 05/09/23 08:00 97.9 F 05/09/23 06:53 Nasal Cannula 05/09/23 06:10 85 05/09/23 06:10 91 H 05/09/23 06:10 97 Nasal Cannula 05/09/23 06:00 100 H 22 136/75 98 Nasal Cannula 05/09/23 05:00 Nasal Cannula 05/09/23 04:00 100 H 05/09/23 00:00 90 05/09/23 04:00 97.5 F L 104 H 24 138/82 96 Room Air 05/09/23 04:00 24 96 Room Air 05/09/23 03:46 111 H 05/09/23 03:46 109 H 05/09/23 03:00 Nasal Cannula 05/08/23 20:00 110 H 05/09/23 02:00 110 H 30 H 160/82 H 94 L Nasal Cannula 05/09/23 01:00 Nasal Cannula 05/09/23 00:00 97.9 F 94 H 26 H 126/69 97 Nasal Cannula 05/08/23 23:00 Nasal Cannula 05/09/23 00:15 109 H 05/09/23 00:15 110 H 05/08/23 22:00 96 H 28 H 133/68 95 Nasal Cannula 05/08/23 21:00 Nasal Cannula 05/08/23 21:00 115 H 05/08/23 21:00 109 H 05/08/23 20:00 100.0 F H 05/08/23 20:00 96 Nasal Cannula 05/08/23 20:00 91 H 30 H 142/92 H 96 Nasal Cannula 05/08/23 18:42 Nasal Cannula 05/08/23 18:00 112 H 24 147/70 H 97 Nasal Cannula 05/08/23 17:49 114 H 05/08/23 17:49 113 H 05/08/23 17:49 97 Nasal Cannula 05/08/23 17:00 Nasal Cannula O2 Flow Rate FiO2 05/09/23 15:29 2 05/09/23 15:00 2 05/09/23 12:00 05/09/23 13:00 2 05/09/23 08:00 05/09/23 11:34 2 05/09/23 11:00 2 05/09/23 11:17 05/09/23 11:17 05/09/23 11:17 2 05/09/23 09:00 2 05/09/23 10:00 2 05/09/23 08:00 2 05/09/23 08:00 2 05/09/23 08:00 05/09/23 06:53 2 05/09/23 06:10 05/09/23 06:10 05/09/23 06:10 2 05/09/23 06:00 2 05/09/23 05:00 2 05/09/23 04:00 05/09/23 00:00 05/09/23 04:00 05/09/23 04:00 05/09/23 03:46 05/09/23 03:46 05/09/23 03:00 2 05/08/23 20:00 05/09/23 02:00 2 05/09/23 01:00 2 05/09/23 00:00 2 05/08/23 23:00 2 05/09/23 00:15 05/09/23 00:15 05/08/23 22:00 2 05/08/23 21:00 2 05/08/23 21:00 05/08/23 21:00 05/08/23 20:00 05/08/23 20:00 2 05/08/23 20:00 2 05/08/23 18:42 2 05/08/23 18:00 2 05/08/23 17:49 05/08/23 17:49 05/08/23 17:49 2 05/08/23 17:00 2 Intake and Output 05/09/23 05/09/23 05/09/23 07:59 15:59 23:59 Intake Total 340 / 1340 1000 / 1340 Output Total 600 / 1250 650 / 1250 Balance -260 / 90 350 / 90 Intake: Intake, Oral Amount 240 / 1140 900 / 1140 Intake, Total IV Amount 100 / 200 100 / 200 Piperacillin/Tazo 4.5 gm In 0.9 100 / 200 100 / 200 % Sodium Chloride 100 ml @ 200 mls/hr IV Q6H COUNTS INCLUDE 234 BEDS AT THE [facility] Rx#:[id number] Output: Output, Urine Amount 600 / 1250 650 / 1250 Other: Number of Unmeasured Voids 0 Weight 73.4 kg Patient Weight 05/09/23 23:59 Weight 73.4 kg Laboratory Results - last 24 hr 05/08/23 20:26: POC Glucose 122 H 05/09/23 06:27: WBC 6.7, RBC 4.20 L, Hgb 11.5 L, Hct 34.7 L, MCV 82.6, MCH 27.3, MCHC 33.1, RDW 16.7, Plt Count 383, MPV 6.4 L, Neut % (Auto) 66.6, Lymph % (Auto) 13.6, Tripp % (Auto) 4.7, Eos % (Auto) 14.9 H, Baso % (Auto) 0.3, Neut # (Auto) 4.5, Lymph # (Auto) 0.9, Tripp # (Auto) 0.3, Eos # (Auto) 1.0 H, Baso # (Auto) 0.0, Sodium 138, Potassium 3.7, Chloride 101, Carbon Dioxide 35 H, Anion Gap 5.7, BUN 8 L D, Creatinine 0.60 L, Estimated Creat Clear 136, Estimated GFR 137, Est GFR ( Amer) 166, Glucose 128 H, POC Glucose 123 H, Hemoglobin A1c 6.4 H, Calcium 8.6, Magnesium 1.9, Total Bilirubin 0.3, AST 46 D, ALT 29, Alkaline Phosphatase 60, Total Protein 6.9, Albumin 3.6, Globulin 3.3 H, Albumin/Globulin Ratio 1.1 05/09/23 11:59: POC Glucose 126 H I & O for Labs for Last 24 Hours: Intake & Output 05/06/23 05/07/23 05/08/23 05/09/23 23:59 23:59 23:59 23:59 Intake Total 100 / 440 1340 / 1340 Output Total 700 / 700 1250 / 1250 Balance -600 / -260 90 / 90 Weight 73.6 kg 73.4 kg Constitutional: Present no acute distress, average body habitus and chronically ill appearing Head: Present atraumatic Neck: Present normal inspection Respiratory: Present accessory muscle use, rhonchi, wheezes, crackles and diminished air movement Comment:: Adventitious sounds in the left upper lung field Cardiac: Present Regular Rhythm and Tachycardia GI: Present soft and normal bowel sounds; Absent distention or tenderness Rectal (male): Present deferred Extremities: Present normal inspection and full ROM Skin: Present intact; Absent erythema Neuro: Present Grossly Intact, alert, awake, oriented x 3 and moves all extremities Assessment and Plan *Assessment and plan (1) Acute respiratory failure with hypoxia: Status: Acute Category: Medical Code(s): J96.01 - Acute respiratory failure with hypoxia (2) Primary lung cancer: Status: Acute Qualifiers: Laterality: left Qualified Code(s): C34.92 - Malignant neoplasm of unspecified part of left bronchus or lung Category: Medical Code(s): C34.90 - Malignant neoplasm of unspecified part of unspecified bronchus or lung (3) Pneumonia: Status: Acute Qualifiers: Laterality: left Lung location: upper lobe of lung Pneumonia type: due to unspecified organism Qualified Code(s): J18.9 - Pneumonia, unspecified organism Category: Medical Code(s): J18.9 - Pneumonia, unspecified organism (4) Postobstructive pneumonia: Status: Acute Category: Medical Code(s): J18.9 - Pneumonia, unspecified organism (5) COPD mixed type: Status: Acute Category: Medical Code(s): J44.9 - Chronic obstructive pulmonary disease, unspecified (6) Diabetes mellitus: Status: Chronic Qualifiers: Diabetes mellitus type: type 2 Category: Medical Code(s): E11.9 - Type 2 diabetes mellitus without complications Plan 62-year-old male with history of lung cancer who presents with worsening shortness of breath. Concern for postobstructive pneumonia. Discussed case with ER physician, request admission for antibiotics, pulmonary consult, further management while awaits potential transfer to . Medicine agreed to admit for further management. Continues to require inpatient management pending culture results and or clinical improvement. Problems addressed as follows: Acute respiratory failure with hypoxia Postobstructive pneumonia Lung cancer -Pulmonology consulted, appreciate their recommendations. Discussed case with touch up edger. Will continue Zosyn pending blood and sputum cultures. Will hold on bronchoscopy at this time as patient is on wait list for . -Continue DuoNebs every 6 hours scheduled with every 6 hours as needed. -Continue flutter valve and spirometry. -Supplemental oxygen, goal sats greater 90%. Currently on 2 L. -Awaiting records from -Continue hydrocodone 5 mg every 6 hours as needed for pain as well as tramadol 30 mg every 6 hours as needed IV. Monitor for toxicity. -Kidney function normal with BUN 8, creatinine 0.6. Electrolytes stable. White cell count normal at 6.7. - Repeat CMP, CBC, magnesium ordered for the morning. Diabetes - A1c 6.4 -Sliding scale insulin with fingersticks ACHS. -Patient states he no longer takes metformin. Discontinue. Full code Regular diet Lovenox subcu DVT prophylaxis
[2023-05-09 16:57] LABS: POC Glucose,Bedside 109 (70-110)
--- NOTE | 2023-05-09 17:16 | PC.NURSE ---
A&OX4. TOLERATING 2LNC WELL. HAS BEEN UP TO THE BATHROOM, TOLERATING WELL. FAMILY HAS BEEN AT BEDSIDE T/O SHIFT. PT HAS C/O LUNG PAIN WITH COUGHING, TX PER AUG. EFFECTIVENESS NOTED. NO OTHER NEEDS NOTED AT THIS TIME. VSS .
[2023-05-09 20:22] LABS: POC Glucose,Bedside 129 (70-110)
[2023-05-09] MEDS: TRAZODONE 50MG TABLET 100 MG PO (23:00)
[2023-05-10] VITALS (10 sets, daily range): BP systolic 135–153; BP diastolic 64–83; PULSE 51–106; RESP 16–22; TEMP 36.4–37.6; O2SAT 91–97; BMI 26.0
[2023-05-10] MEDS: IPRATROPIUM/ALBUTEROL 3 ML NEB IH ×4 (00:08→18:13)
[2023-05-10] MEDS: OXYMETAZOLINE NASAL SPRAY 0.05% 15ML NS (00:15)
[2023-05-10] MEDS: PIPERACILLIN/TAZO 4.5 GM in 0.9 % SODIUM CHLORIDE 100 ML IV ×4 (06:30→23:05)
[2023-05-10 07:25] LABS: POC Glucose,Bedside 115 (70-110)
[2023-05-10 07:47] LABS: Basophils % 0.3 % (0.1-2.0); Eosinophils # 0.7 K/mm3 (0.0-0.4); Eosinophils % 13.4 % (0.1-12.0); Hematocrit 35.4 % (42.0-52.0); Hemoglobin 11.4 g/dL (14.1-18.0); Lymphocytes # 0.8 K/mm3 (0.7-4.5); Lymphocytes % 14.6 % (10-50); Mean Corpuscular HGB Conc 32.1 g/dL (31.8-35.4); Mean Corpuscular Hemoglobin 26.5 pg (27.0-31.2); Mean Corpuscular Volume 82.4 fl (80-94); Mean Platelet Volume 7.4 fl (7.4-10.4); Monocytes # 0.3 K/mm3 (0.1-1.0); Monocytes % 6.3 % (1.7-9.3); Neutrophils # 3.5 K/mm3 (1.8-7.8); Neutrophils % 65.4 % (37.0-80.0); Platelet Count 360 K/mm3 (142-424); Red Cell Distribution Width 17.3 % (11.5-17.5); White Blood Count 5.4 K/mm3 (4.8-10.8)
[2023-05-10 08:06] LABS: Chloride 100 mmol/L (98-107); Potassium 3.4 mmoL/L (3.5-5.1); Sodium 138 mmol/L (136-145)
[2023-05-10 08:08] LABS: Alanine Aminotransferase 29 U/L (12-78); Aspartate Amino Transferase 37 U/L (17-59); Blood Urea Nitrogen 9 mg/dl (9-20); Creatinine Clearance Estimated 139 mL/min (50-200); Estimated Glomerular Filt Rate 137 ml/min (>60); GFR (African American) 166 ML/MIN (>60)
[2023-05-10 08:09] LABS: Albumin Level 3.6 g/dl (3.5-5.0); Albumin/Globulin Ratio 1.1 (1.1-1.8); Alkaline Phosphatase 59 U/L (38-126); Anion Gap 5.4 mEq/L (5-15); Bilirubin,Total 0.3 mg/dl (0.2-1.3); Calcium 8.6 mg/dl (8.4-10.2); Carbon Dioxide 36 mmol/L (22.0-30.0); Globulin 3.2 g/dL (1.3-3.2); Glucose 127 mg/dl (74-100); Total Protein,Serum 6.8 g/dl (6.3-8.2)
[2023-05-10] MEDS: HYDROCODONE/APAP 5/325 MG TABLET 1 TAB PO ×3 (08:37→21:37)
[2023-05-10] MEDS: buPROPion HCl SR 150MG TAB 150 MG PO ×2 (08:38→21:37)
[2023-05-10] MEDS: ENOXAPARIN 40MG/0.4ML SYRINGE 40 MG SQ (08:38)
[2023-05-10] MEDS: guaiFENesin 600 MG TAB.ER.12H 1200 MG PO ×2 (08:38→21:38)
[2023-05-10] MEDS: AZITHROMYCIN 500 MG in 0.9 % SODIUM CHLORIDE 250 ML 250 MG IV (08:38)
[2023-05-10] MEDS: KETOROLAC 30MG/ML VIAL 30 MG IV ×3 (09:22→21:38)
--- NOTE | 2023-05-10 09:45 | EXP.PULM.PN ---
Subjective *Date: 05/10/23 *Time: 12:41 Interval history: No acute respiratory vents overnight. Patient denies any new respiratory complaints. Pulmonology Exam Inpatient Vital signs and Labs for Last 24 Hours: Temp Pulse Resp BP Pulse Ox O2 Del Method O2 Flow Rate 97.6 F 99 H 16 138/66 95 Nasal Cannula 2 05/10/23 07:54 05/10/23 07:54 05/10/23 07:54 05/10/23 07:54 05/10/23 07:54 05/10/23 07:54 05/10/23 07:54 FiO2 2 05/09/23 00:00 Laboratory Results - last 24 hr 05/09/23 06:27: Sodium 138, Anion Gap 5.7 05/09/23 11:59: POC Glucose 126 H 05/09/23 16:42: POC Glucose 109 05/09/23 20:10: POC Glucose 129 H 05/10/23 06:29: WBC 5.4, RBC 4.30 L, Hgb 11.4 L, Hct 35.4 L, MCV 82.4, MCH 26.5 L, MCHC 32.1, RDW 17.3, Plt Count 360, MPV 7.4, Neut % (Auto) 65.4, Lymph % (Auto) 14.6, Duval % (Auto) 6.3, Eos % (Auto) 13.4 H, Baso % (Auto) 0.3, Neut # (Auto) 3.5, Lymph # (Auto) 0.8, Duval # (Auto) 0.3, Eos # (Auto) 0.7 H, Baso # (Auto) 0.0, Sodium 138, Potassium 3.4 L, Chloride 100, Carbon Dioxide 36 H, Anion Gap 5.4, BUN 9, Creatinine 0.60 L, Estimated Creat Clear 139, Estimated GFR 137, Est GFR ( Amer) 166, Glucose 127 H, Calcium 8.6, Magnesium 2.0, Total Bilirubin 0.3, AST 37, ALT 29, Alkaline Phosphatase 59, Total Protein 6.8, Albumin 3.6, Globulin 3.2, Albumin/Globulin Ratio 1.1 05/10/23 07:07: POC Glucose 115 H I & O for Labs for Last 24 Hours: Intake & Output 05/07/23 05/08/23 05/09/2323 23:59 23:59 23:59 23:59 Intake Total 100 / 440 1940 / 2280 840 / 840 Output Total 700 / 700 1250 / 1250 1100 / 1100 Balance -600 / -260 690 / 1030 -260 / -260 Weight 162 lb 4.163 oz 161 lb 13.109 oz 165 lb 12.8 oz Constitutional: Present moderate distress Head: Present normocephalic and atraumatic ENT: Present normal exam, normal oropharynx and mucous membranes moist Neck: Present normal inspection and full ROM Respiratory: Present respiratory distress, rhonchi, diminished air movement and able to speak in complete sentences Cardiac: Present S1/S2, Tachycardia and radial pulses present GI: Present soft and distention; Absent tenderness or guarding Skin: Present intact; Absent cyanosis or jaundice Neuro: Present alert, awake and oriented x 3 Extremities: Present normal inspection; Absent clubbing or cyanosis Psychiatric: Present normal affect and cooperative Assessment and Plan *Assessment and plan (1) Primary lung cancer: Status: Acute Qualifiers: Laterality: left Qualified Code(s): C34.92 - Malignant neoplasm of unspecified part of left bronchus or lung Category: Medical Code(s): C34.90 - Malignant neoplasm of unspecified part of unspecified bronchus or lung (2) Pneumonia: Status: Acute Qualifiers: Laterality: left Lung location: upper lobe of lung Pneumonia type: due to unspecified organism Qualified Code(s): J18.9 - Pneumonia, unspecified organism Category: Medical Code(s): J18.9 - Pneumonia, unspecified organism (3) Acute respiratory failure with hypoxia: Status: Acute Category: Medical Code(s): J96.01 - Acute respiratory failure with hypoxia (4) Postobstructive pneumonia: Status: Acute Category: Medical Code(s): J18.9 - Pneumonia, unspecified organism Plan Mr. 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 Patient currently follows Dr. Astudillo at [facility] for treatment of his cancer. As per the patient he was not able to tolerate chemotherapy, followed by completion of radiation therapy around December 2022 and currently receiving immunotherapy. CT scan of the on this admission reviewed and compared to prior CT scan, overall appears to be increasing size of the noted lung mass along with adjacent left upper lobe atelectasis/postobstructive pneumonia along with narrowing of the left upper lobe airways and postobstructive pneumonia is likely a sequelae of tumor progression or airway compression/radiation induced airway narrowing is not clear at this point of time. The possibility of radiation injury less likely however we will obtain any recent imaging regarding the timeline of current events and the start of pulmonary infiltrates on his imaging Patient requested to transfer to [facility] at this point of time. On initial examination appears to be in respiratory distress, needing supplementation to maintain O2 saturation goal of 90% and above. CT imaging and notes from [facility] reviewed, patient noted to have radiation-induced fibrotic changes in the left upper lobe on the current changes we are seeing are a combination of postobstructive pneumonia along with radiation-induced fibrosis. Interval update: No acute respiratory events overnight. Afebrile. Hemodynamically stable. Stable. White count. Continue to be needing oxygen supplementation especially with exertion. Improving saturations at rest. Sputum and blood cultures pending Plan: Continue Zosyn pending blood and sputum cultures. Given patient's recurrent/nonverbal pneumonia awaiting final sputum cultures before deciding on final antibiotic course. If sputum cultures are unyielding then we will proceed with treatment with Zosyn for a total of 7 days. Continue azithromycin x 5 days Flutter valve and incentive spirometer DuoNebs every 6 hours scheduled along with every 6 as needed Will hold off on bronchoscopy at this point of time given patient on wait list for [facility]. # Thank you for involving pulmonary in this patient care. Will continue to follow.
[2023-05-10 11:57] LABS: POC Glucose,Bedside 90 (70-110)
--- NOTE | 2023-05-10 13:58 | CARE MANAGER ---
Patient is likely to discharge over the weekend and will require IV Zosyn thru 05/14. Patient order/clinical has been faxed to [employer]. They will be providing the medication and a nurse to teach patient. At discharge nursing staff should call [email or web address] [facility] @ to notify them that patient is ready so that they can arrange to come deliver and teach patient how to infuse prior to discharge.
--- NOTE | 2023-05-10 16:35 | P.PN_ITS ---
Subjective *Date: 05/10/23 *Time: 17:04 Interval history: Patient still quite fatigued per his report. Able to be on room air for brief periods of time. Necessitating 2 L with exertion or at rest. Afebrile. Remains mildly tachycardic with heart rate in the 90s. No nausea or vomiting. Tolerating p.o. intake. Medical Exam Vital signs and Labs for Last 24 Hours: Vital Signs Temp Pulse Pulse Resp BP Pulse Ox O2 Del Method 05/10/23 15:42 99.6 F 98 H 18 140/69 95 Nasal Cannula 05/10/23 11:54 101 H 05/10/23 11:54 102 H 05/10/23 11:42 98.1 F 89 16 144/83 H 94 L Nasal Cannula 05/10/23 07:54 97.6 F 99 H 16 138/66 95 Nasal Cannula 05/10/23 06:34 51 L 05/10/23 06:34 55 L 05/10/23 06:34 97 Nasal Cannula 05/09/23 23:00 Nasal Cannula 05/09/23 21:00 Nasal Cannula 05/10/23 04:00 98.6 F 89 20 144/64 H 93 L Nasal Cannula 05/10/23 00:00 97.6 F 90 18 135/69 91 L Nasal Cannula 05/10/23 00:14 92 H 05/10/23 00:14 100 H 05/09/23 22:42 107 H 05/09/23 22:42 108 H 05/09/23 20:00 90 05/09/23 18:39 Nasal Cannula 05/09/23 17:00 Nasal Cannula 05/09/23 17:04 106 H 05/09/23 17:04 108 H 05/09/23 17:04 96 Nasal Cannula O2 Flow Rate 05/10/23 15:42 2 05/10/23 11:54 05/10/23 11:54 05/10/23 11:42 2 05/10/23 07:54 2 05/10/23 06:34 05/10/23 06:34 05/10/23 06:34 2 05/09/23 23:00 2 05/09/23 21:00 2 05/10/23 04:00 2 05/10/23 00:00 2 05/10/23 00:14 05/10/23 00:14 05/09/23 22:42 05/09/23 22:42 05/09/23 20:00 05/09/23 18:39 2 05/09/23 17:00 2 05/09/23 17:04 05/09/23 17:04 05/09/23 17:04 2 Intake and Output 05/10/23 05/10/23 05/10/23 07:59 15:59 23:59 Intake Total 840 / 840 0 / 840 Output Total 825 / 1400 575 / 1400 Balance 15 / -560 -575 / -560 Intake: Intake, Oral Amount 740 / 740 0 / 740 Intake, Total IV Amount 100 / 100 Piperacillin/Tazo 4.5 gm In 0.9 100 / 100 % Sodium Chloride 100 ml @ 200 mls/hr IV Q6H [facility] Rx#:[id number] Output: Output, Urine Amount 825 / 1400 575 / 1400 Other: Number of Unmeasured Voids 0 0 Weight 75.206 kg Patient Weight 05/10/23 23:59 Weight 75.206 kg Laboratory Results - last 24 hr 05/09/23 16:42: POC Glucose 109 05/09/23 20:10: POC Glucose 129 H 05/10/23 06:29: WBC 5.4, RBC 4.30 L, Hgb 11.4 L, Hct 35.4 L, MCV 82.4, MCH 26.5 L, MCHC 32.1, RDW 17.3, Plt Count 360, MPV 7.4, Neut % (Auto) 65.4, Lymph % (Auto) 14.6, [place] % (Auto) 6.3, Eos % (Auto) 13.4 H, Baso % (Auto) 0.3, Neut # (Auto) 3.5, Lymph # (Auto) 0.8, [place] # (Auto) 0.3, Eos # (Auto) 0.7 H, Baso # (Auto) 0.0, Sodium 138, Potassium 3.4 L, Chloride 100, Carbon Dioxide 36 H, Anion Gap 5.4, BUN 9, Creatinine 0.60 L, Estimated Creat Clear 139, Estimated GFR 137, Est GFR ( Amer) 166, Glucose 127 H, Calcium 8.6, Magnesium 2.0, Total Bilirubin 0.3, AST 37, ALT 29, Alkaline Phosphatase 59, Total Protein 6.8, Albumin 3.6, Globulin 3.2, Albumin/Globulin Ratio 1.1 05/10/23 07:07: POC Glucose 115 H 05/10/23 11:48: POC Glucose 90 I & O for Labs for Last 24 Hours: Intake & Output 05/07/23 05/08/23 05/09/23 05/10/23 23:59 23:59 23:59 23:59 Intake Total 100 / 440 1940 / 2280 840 / 840 Output Total 700 / 700 1250 / 1250 1400 / 1400 Balance -600 / -260 690 / 1030 -560 / -560 Weight 73.6 kg 73.4 kg 75.206 kg Constitutional: Present no acute distress, average body habitus and chronically ill appearing Head: Present atraumatic Neck: Present normal inspection Respiratory: Present rhonchi, crackles, diminished air movement and normal respiratory effort; Absent wheezes Comment:: Adventitious sounds in the left upper lung field Cardiac: Present Regular Rhythm and Tachycardia GI: Present soft and normal bowel sounds; Absent distention or tenderness Rectal (male): Present deferred Extremities: Present normal inspection and full ROM Skin: Present intact; Absent erythema Neuro: Present Grossly Intact, alert, awake, oriented x 3 and moves all extremities Assessment and Plan *Assessment and plan (1) Acute respiratory failure with hypoxia: Status: Acute Category: Medical Code(s): J96.01 - Acute respiratory failure with hypoxia (2) Primary lung cancer: Status: Acute Qualifiers: Laterality: left Qualified Code(s): C34.92 - Malignant neoplasm of unspecified part of left bronchus or lung Category: Medical Code(s): C34.90 - Malignant neoplasm of unspecified part of unspecified bronchus or lung (3) Pneumonia: Status: Acute Qualifiers: Laterality: left Lung location: upper lobe of lung Pneumonia type: due to unspecified organism Qualified Code(s): J18.9 - Pneumonia, unspecified organism Category: Medical Code(s): J18.9 - Pneumonia, unspecified organism (4) Postobstructive pneumonia: Status: Acute Category: Medical Code(s): J18.9 - Pneumonia, unspecified organism (5) COPD mixed type: Status: Acute Category: Medical Code(s): J44.9 - Chronic obstructive pulmonary disease, unspecified (6) Diabetes mellitus: Status: Chronic Qualifiers: Diabetes mellitus type: type 2 Category: Medical Code(s): E11.9 - Type 2 diabetes mellitus without complications Plan 62-year-old male with history of lung cancer who presents with worsening shortness of breath. Concern for postobstructive pneumonia. Discussed case with ER physician, request admission for antibiotics, pulmonary consult, further management while awaits potential transfer to . Medicine agreed to admit for further management. Continues to require inpatient management pending culture results and or clinical improvement. Problems addressed as follows: Acute respiratory failure with hypoxia Postobstructive pneumonia Lung cancer -Pulmonology consulted, appreciate their recommendations. Discussed case with warehouse unloader. Plan to continue Zosyn for 7 days or narrow antibiotics if culture shows ability to adjust management. Plan for close follow-up as an outpatient with Dr. Astudillo at next week. Patient has CT scheduled at [facility] on 05/13. Dr. Astudillo to discuss case with Dr. Meraz about bronchoscopy as patient may or may not necessitate stenting. -Continue DuoNebs every 6 hours scheduled with every 6 hours as needed. -Continue flutter valve and spirometry. -Supplemental oxygen, goal sats greater 90%. Currently on 1-2 L. -Continue hydrocodone 5 mg every 6 hours as needed for pain as well as tramadol 30 mg every 6 hours as needed IV. Monitor for toxicity. -Kidney function normal with BUN 9, creatinine 0.6. Electrolytes stable. White cell count normal at 5.4. - Repeat CMP, CBC, magnesium ordered for the morning. -Anticipate potential discharge this weekend, will refer Zosyn prescription to [facility] for completion of course Diabetes -Sliding scale insulin with fingersticks ACHS. Full code Regular diet Lovenox subcu DVT prophylaxis
[2023-05-10 16:52] LABS: POC Glucose,Bedside 99 (70-110)
[2023-05-10 22:03] LABS: POC Glucose,Bedside 95 (70-110)
[2023-05-10] MEDS: TRAZODONE 50MG TABLET 100 MG PO (22:13)
[2023-05-11] VITALS (9 sets, daily range): BP systolic 124–162; BP diastolic 70–90; PULSE 88–109; RESP 18–26; TEMP 36.5–36.7; O2SAT 92–98; BMI 26.0
[2023-05-11] MEDS: IPRATROPIUM/ALBUTEROL 3 ML NEB IH ×4 (00:15→10:58)
[2023-05-11] MEDS: PIPERACILLIN/TAZO 4.5 GM in 0.9 % SODIUM CHLORIDE 100 ML IV ×2 (06:35→11:58)
[2023-05-11 07:03] LABS: Basophils % 0.2 % (0.1-2.0); Eosinophils # 0.9 K/mm3 (0.0-0.4); Hematocrit 34.2 % (42.0-52.0); Hemoglobin 11.1 g/dL (14.1-18.0); Lymphocytes # 1.1 K/mm3 (0.7-4.5); Lymphocytes % 19.5 % (10-50); Mean Corpuscular HGB Conc 32.6 g/dL (31.8-35.4); Mean Corpuscular Hemoglobin 26.8 pg (27.0-31.2); Mean Platelet Volume 7.6 fl (7.4-10.4); Monocytes # 0.3 K/mm3 (0.1-1.0); Monocytes % 5.8 % (1.7-9.3); Neutrophils # 3.3 K/mm3 (1.8-7.8); Neutrophils % 58.5 % (37.0-80.0); Platelet Count 358 K/mm3 (142-424); Red Blood Count 4.17 M/mm3 (4.60-6.20); Red Cell Distribution Width 17.2 % (11.5-17.5); White Blood Count 5.7 K/mm3 (4.8-10.8)
[2023-05-11 07:04] LABS: Chloride 101 mmol/L (98-107); Sodium 137 mmol/L (136-145)
[2023-05-11 07:05] LABS: Potassium 3.8 mmoL/L (3.5-5.1)
[2023-05-11 07:07] LABS: Alanine Aminotransferase 27 U/L (12-78); Alkaline Phosphatase 65 U/L (38-126); Aspartate Amino Transferase 26 U/L (17-59); Bilirubin,Total 0.2 mg/dl (0.2-1.3); Blood Urea Nitrogen 9 mg/dl (9-20); Creatinine Clearance Estimated 139 mL/min (50-200); Estimated Glomerular Filt Rate 137 ml/min (>60); GFR (African American) 166 ML/MIN (>60)
[2023-05-11 07:08] LABS: Albumin Level 3.5 g/dl (3.5-5.0); Albumin/Globulin Ratio 1.1 (1.1-1.8); Anion Gap 4.8 mEq/L (5-15); Calcium 8.6 mg/dl (8.4-10.2); Carbon Dioxide 35 mmol/L (22.0-30.0); Globulin 3.3 g/dL (1.3-3.2); Glucose 125 mg/dl (74-100); Total Protein,Serum 6.8 g/dl (6.3-8.2)
[2023-05-11 07:14] LABS: C-Reactive Protein 48.4 mg/L (0-4)
[2023-05-11 07:14] LABS: POC Glucose,Bedside 111 (70-110)
[2023-05-11] MEDS: HYDROCODONE/APAP 5/325 MG TABLET 1 TAB PO (08:38)
[2023-05-11] MEDS: AZITHROMYCIN 500 MG in 0.9 % SODIUM CHLORIDE 250 ML 250 MG IV (08:39)
[2023-05-11] MEDS: guaiFENesin 600 MG TAB.ER.12H 1200 MG PO (08:39)
[2023-05-11] MEDS: KETOROLAC 30MG/ML VIAL 30 MG IV ×2 (08:39→14:35)
[2023-05-11] MEDS: buPROPion HCl SR 150MG TAB 150 MG PO (08:39)
[2023-05-11] MEDS: ENOXAPARIN 40MG/0.4ML SYRINGE 40 MG SQ (08:39)
--- NOTE | 2023-05-11 09:29 | XR_ITS ---
PROCEDURE INFORMATION: Exam: XR Chest Exam date and time: 05/11/2023 9:55 AM Age: 62 years old Clinical indication: Shortness of breath; Additional info: SOB. History of lung cancer x 8 months. Former smoker for 40 yrs TECHNIQUE: Imaging protocol: Radiologic exam of the chest. Views: 1 view. COMPARISON: CT ANGIO CHEST PE PROTOCOL 05/08/2023 8:27 AM FINDINGS: Lungs: Continued airspace opacity left upper lobe with volume loss of the left lung. Seen to better advantage on previous CT. Emphysematous changes. Pleural spaces: Unremarkable. No pleural effusion. No pneumothorax. Heart/Mediastinum: Unremarkable. No cardiomegaly. Bones/joints: Unremarkable. IMPRESSION: Continued airspace opacity left upper lobe with volume loss of the left lung. Seen to better advantage on previous CT.
--- NOTE | 2023-05-11 10:13 | P.PN_ITS ---
Subjective *Date: 05/11/23 *Time: 10:13 Medical Exam Vital signs and Labs for Last 24 Hours: Vital Signs Temp Pulse Pulse Resp BP Pulse Ox O2 Del Method 05/11/23 07:50 98.1 F 105 H 18 152/82 H 94 L Nasal Cannula 05/11/23 06:00 91 H 05/11/23 06:00 97 H 05/11/23 06:00 98 Nasal Cannula 05/11/23 01:00 Nasal Cannula 05/10/23 23:00 Nasal Cannula 05/10/23 21:00 Nasal Cannula 05/11/23 03:42 97 H 05/11/23 03:42 100 H 05/11/23 03:33 88 26 H 150/89 H 97 Nasal Cannula 05/11/23 00:19 106 H 05/11/23 00:19 107 H 05/11/23 00:00 97.7 F 109 H 26 H 162/90 H 92 L Nasal Cannula 05/10/23 19:58 98.0 F 102 H 22 153/77 H 96 Nasal Cannula 05/10/23 18:21 106 H 05/10/23 18:21 92 H 05/10/23 18:21 96 Nasal Cannula 05/10/23 16:58 Nasal Cannula 05/10/23 15:42 99.6 F 98 H 18 140/69 95 Nasal Cannula 05/10/23 11:54 101 H 05/10/23 11:54 102 H 05/10/23 11:42 98.1 F 89 16 144/83 H 94 L Nasal Cannula O2 Flow Rate 05/11/23 07:50 2 05/11/23 06:00 05/11/23 06:00 05/11/23 06:00 2 05/11/23 01:00 2 05/10/23 23:00 2 05/10/23 21:00 2 05/11/23 03:42 05/11/23 03:42 05/11/23 03:33 05/11/23 00:19 05/11/23 00:19 05/11/23 00:00 05/10/23 19:58 2 05/10/23 18:21 05/10/23 18:21 05/10/23 18:21 2 05/10/23 16:58 2 05/10/23 15:42 2 05/10/23 11:54 05/10/23 11:54 05/10/23 11:42 2 Intake and Output 05/10/23 05/11/23 05/11/23 23:59 07:59 15:59 Intake Total 370 / 1210 335 / 335 Output Total 350 / 2100 1900 / 1900 Balance 20 / -890 -1565 / -1565 Intake: Intake, Oral Amount 270 / 1010 335 / 335 Intake, Total IV Amount 100 / 200 Piperacillin/Tazo 4.5 gm In 0.9 100 / 200 % Sodium Chloride 100 ml @ 200 mls/hr IV Q6H [facility] Rx#:[id number] Output: Output, Urine Amount 350 / 2100 1900 / 1900 Other: Weight 75.2 kg Patient Weight 05/11/23 23:59 Weight 75.2 kg Laboratory Results - last 24 hr 05/10/23 11:48: POC Glucose 90 05/10/23 16:43: POC Glucose 99 05/10/23 21:34: POC Glucose 95 05/11/23 06:37: WBC 5.7, RBC 4.17 L, Hgb 11.1 L, Hct 34.2 L, MCV 82.0, MCH 26.8 L, MCHC 32.6, RDW 17.2, Plt Count 358, MPV 7.6, Neut % (Auto) 58.5, Lymph % ( Auto) 19.5, [place] % (Auto) 5.8, Eos % (Auto) 16.0 H, Baso % (Auto) 0.2, Neut # (Auto) 3.3, Lymph # (Auto) 1.1, [place] # (Auto) 0.3, Eos # (Auto) 0.9 H, Baso # (Auto) 0.0, Sodium 137, Potassium 3.8, Chloride 101, Carbon Dioxide 35 H, Anion Gap 4.8 L, BUN 9, Creatinine 0.60 L, Estimated Creat Clear 139, Estimated GFR 137, Est GFR ( Amer) 166, Glucose 125 H, Calcium 8.6, Total Bilirubin 0.2, AST 26 D, ALT 27, Alkaline Phosphatase 65, C-Reactive Protein 48.4 H, Total Protein 6.8, Albumin 3.5, Globulin 3.3 H, Albumin/Globulin Ratio 1.1 05/11/23 06:55: POC Glucose 111 H I & O for Labs for Last 24 Hours: Intake & Output 05/08/23 05/09/23 05/10/23 05/11/23 23:59 23:59 23:59 23:59 Intake Total 100 / 440 1940 / 2280 1210 / 1210 335 / 335 Output Total 700 / 700 1250 / 1250 1750 / 2100 1900 / 1900 Balance -600 / -260 690 / 1030 -540 / -890 -1565 / -1565 Weight 73.6 kg 73.4 kg 75.206 kg 75.2 kg Microbiology Reports for the Last 24 Hours: Microbiology 05/08/23 15:40 Sputum - Expectorated Sputum Gram Stain - Final 05/08/23 07:35 Blood Blood Culture - Preliminary 05/08/23 08:05 Blood Blood Culture - Preliminary The patient's infection will respond to the chosen ABx?: Yes Is the patient receiving the right drug, dose, and route?: Yes Could a more targeted ABx be ordered?: No (AFEBRILE AND WBC WNL)
[2023-05-11 10:28] LABS: Troponin I < 0.01 ng/ml (0.00-0.034)
--- NOTE | 2023-05-11 10:34 | PC.NURSE ---
Late entry- Went in to assess pt this am, pt is unhappy with care receiving, pt ask for pt advocacy number. Relayed this to charge and dimension warehouse supervisor. They went in to speak with patient.
[2023-05-11] MEDS: OXYMETAZOLINE NASAL SPRAY 0.05% 15ML NS (11:29)
[2023-05-11 11:34] LABS: POC Glucose,Bedside 101 (70-110)
[2023-05-11 11:35] LABS: Magnesium 1.7 mg/dl (1.6-2.3)
--- NOTE | 2023-05-11 15:14 | PC.NURSE ---
Report called to Nurse Armando @ [phone]
--- NOTE | 2023-05-13 13:14 | EXP.DC.SUM ---
General Admission date:: 05/08/23 Discharge date: 05/11/23 HPI HPI HPI: Mr. Upton is a 62-year-old male with history of COPD, diabetes, left upper lobe lung cancer status post radiation treatment. He is currently been on immunotherapy infusions for continued treatment. Presented to the ER today with progressively worsening shortness of breath. Became worse this morning but states that has been progressing over the past month. Wears oxygen at night but has needed it continuously for the past 1 to 2 days. Was recently sent home on a course of antibiotics after evaluation for cough and possible pneumonia. He completed his course of antibiotics but has not had any improvement in symptoms. When he awoke this morning he had severe shortness of breath, some pain in his left upper chest, and difficulty breathing. He called EMS who administered a breathing treatment and brought him to the ER for further evaluation. He denies any nausea, vomiting, diarrhea, confusion, headache. He feels very anxious and gets minimal relief from his breathing treatments which used to give him improved symptom relief until recently. Currently requiring 2 L nasal cannula oxygen continuously. Eval in the ER concerning for sepsis with tachypnea, tachycardia, along with focal consolidation of left upper lobe. Chest imaging positive for dense pneumonia. Medicine and pulmonology consulted for management and admission. Patient negative for COVID and flu. On arrival to the floor, patient appears somewhat anxious. Coughing up dark thick sputum. Additional history as follows: Patient states that he was receiving immunotherapy yesterday at [facility] when he was advised to go to the hospital/ER for further evaluation. Seen in the ER at where he had to wait in a [place] bed and was being treated for pneumonia. He was concerned because of his exposure to all the other sick people in the hospital. He therefore left and went home. He presented to the ER because of worsening symptoms and is hesitant to consider transfer at this time. ER however did consult , patient currently on the wait list. Hospital Course Hospital Course Hospital Course: Patient was seen and evaluated at the bedside on the day of discharge. Patient is stable for discharge. Patient wishes to be discharged. All patient questions were answered and patient was given time to ask questions. Patient was discharged in stable condition. Patient understands that she can return to ER in case of any sudden changes in health. Total time spent on DC - 38 mins. He was treansferred to . 62-year-old male with history of lung cancer who presents with worsening shortness of breath. Concern for postobstructive pneumonia. Discussed case with ER physician, request admission for antibiotics, pulmonary consult, further management while awaits potential transfer to . Medicine agreed to admit for further management. Continues to require inpatient management pending culture results and or clinical improvement. Problems addressed as follows: discussed with hospitalist at and patient was deemed stable for transfer Acute respiratory failure with hypoxia - continue O2 support Postobstructive pneumonia - continue IV abx Lung cancer - transfer to [facility] level of care Exam Data for Last 24 hours Vital signs and Labs for Last 24 Hours: Temp Pulse Resp BP Pulse Ox O2 Del Method O2 Flow Rate 97.9 F 104 H 24 124/70 96 Nasal Cannula 2 05/11/23 11:20 05/11/23 11:20 05/11/23 11:20 05/11/23 11:20 05/11/23 11:20 05/11/23 15:00 05/11/23 15:00 FiO2 2 05/09/23 00:00 I & O for Last 24 hours: Intake & Output 05/10/23 05/11/23 05/12/23 05/13/23 23:59 23:59 23:59 23:59 Intake Total 1210 / 1210 605 / 605 Output Total 1750 / 2100 2300 / 2300 Balance -540 / -890 -1695 / -1695 Weight 75.206 kg 75.2 kg Microbiology Reports for the Last 24 Hours: Microbiology 05/08/23 08:05 Blood Blood Culture - Preliminary 05/08/23 07:35 Blood Blood Culture - Preliminary 05/08/23 15:40 Sputum - Expectorated Sputum Gram Stain - Final 05/08/23 15:40 Sputum - Expectorated Sputum Sputum Culture - Preliminary Constitutional Constitutional: no acute distress *Routine HEENT Exam Head: Present normocephalic Eye: Present EOMI and PERRL ENT: Present mucous membranes moist *Routine Neck Exam Neck: Present supple; Absent lymphadenopathy *Routine Respiratory Exam Respiratory: Present CTA bilaterally *Routine Cardiovascular Exam Cardiovascular: Present RRR *Routine Abdominal Exam Abdominal: Present soft and normoactive bowel sounds; Absent tenderness *Routine Extremities Exam Extremities: Absent cyanosis, clubbing or edema *Routine Skin Exam Skin: Present warm; Absent rash *Routine Neurological Exam Neurological: Present alert and oriented X3 Results Data Completed and Pending Labs on day of discharge: Preliminary micro results at discharge 05/08/23 08:05 Blood Culture - Preliminary Blood 05/08/23 07:35 Blood Culture - Preliminary Blood 05/08/23 15:40 Sputum Culture - Preliminary Sputum - Expectorated Sputum DS: Diagnosis Discharge Diagnosis (1) Acute respiratory failure with hypoxia: Status: Acute Code(s): J96.01 - Acute respiratory failure with hypoxia (2) Primary lung cancer: Status: Acute Code(s): C34.90 - Malignant neoplasm of unspecified part of unspecified bronchus or lung Qualifiers: Laterality: left Qualified Code(s): C34.92 - Malignant neoplasm of unspecified part of left bronchus or lung (3) Pneumonia: Status: Acute Code(s): J18.9 - Pneumonia, unspecified organism Qualifiers: Laterality: left Lung location: upper lobe of lung Pneumonia type: due to unspecified organism Qualified Code(s): J18.9 - Pneumonia, unspecified organism (4) Postobstructive pneumonia: Status: Acute Code(s): J18.9 - Pneumonia, unspecified organism (5) COPD mixed type: Status: Acute Code(s): J44.9 - Chronic obstructive pulmonary disease, unspecified (6) Diabetes mellitus: Status: Chronic Code(s): E11.9 - Type 2 diabetes mellitus without complications Qualifiers: Diabetes mellitus type: type 2 Meds Home Medications and Allergies Home Medications Medication Instructions Recorded Confirmed Type blood sugar diagnostic (FreeStyle 12/05/22 05/08/23 History Lite Strips) blood-glucose meter (FreeStyle 12/05/22 05/08/23 History Lite Meter kit) lancets 28 gauge (FreeStyle 12/05/22 05/08/23 History Lancets) albuterol sulfate 1.25 mg/3 mL 1.25 mg inhalation QIDP PRN 05/08/23 05/08/23 History solution for nebulization shortness of breath or wheezing albuterol sulfate 90 mcg/actuation 2 puff inhalation Q4HP PRN 05/08/23 05/08/23 History aerosol inhaler (Ventolin HFA) shortness of breath or wheezing bupropion HCl 150 mg tablet,12 hr 150 mg PO BID Smoking Cessation 05/08/23 05/08/23 History sustained-release hydrocodone 5 mg-acetaminophen 325 1 tab PO QIDP PRN Moderate Pain 05/08/23 05/08/23 History mg tablet (Scale Score 5-6) ibuprofen 800 mg tablet 800 mg PO TIDP PRN Mild Pain 05/08/23 05/08/23 History (Scale Score 1-4) ipratropium 0.5 mg-albuterol 3 mg 3 ml inhalation QIDP PRN shortness 05/08/23 05/08/23 History (2.5 mg base)/3 mL nebulization of breath or wheezing soln ondansetron 4 mg disintegrating 4 mg PO Q8HP PRN nausea and 05/08/23 05/08/23 History tablet vomiting tiotropium 2.5 mcg-olodaterol 2.5 2 puff inhalation DAILY Breathing 05/08/23 05/08/23 History mcg/actuation mist for inhalation Problems (Stiolto Respimat) New Prescriptions to Start Prescriptions: Allergies Allergy/AdvReac Type Severity Reaction Status Date / Time No Known Allergies Allergy Unverified 05/08/23 14:34 Discharge Plan Disposition Patient Disposition: Xfer Short-Term Hosp Condition: Fair Discharge Order Discharge Orders: Discharge Order (Routine); Ordered 05/11/23 Ordered By: Yadira Christian Follow up Plan Follow up with: Dean Astudillo MD [Referring] - Enter time for follow up Prescriptions/Medication Reconciliation: No Action (DME) FreeStyle Lite Strips Strip See Rx Instructions .ROUTE .COMPLEX Rx Instructions: USE DIRECTED (DME) blood-glucose meter [FreeStyle Lite Meter] Kit See Rx Instructions .Route Rx Instructions: As directed (DME) lancets [FreeStyle Lancets] 28 gauge misc See Rx Instructions .Route Rx Instructions: As directed hydrocodone-acetaminophen 5-325 mg tablet 1 tab PO QIDP PRN (Reason: Moderate Pain (Scale Score 5-6)) ipratropium-albuterol 0.5 mg-3 mg(2.5 mg base)/3 mL solution for nebulization 3 ml inhalation QIDP PRN (Reason: shortness of breath or wheezing) ibuprofen 800 mg tablet 800 mg PO TIDP PRN (Reason: Mild Pain (Scale Score 1-4)) albuterol sulfate 1.25 mg/3 mL solution for nebulization 1.25 mg inhalation QIDP PRN (Reason: shortness of breath or wheezing) albuterol sulfate [Ventolin HFA] 90 mcg/actuation HFA aerosol inhaler 2 puff inhalation Q4HP PRN (Reason: shortness of breath or wheezing) ondansetron 4 mg tablet,disintegrating 4 mg PO Q8HP PRN (Reason: nausea and vomiting) Stiolto Respimat 2.5-2.5 mcg/actuation mist 2 puff inhalation DAILY bupropion HCl 150 mg tablet sustained-release 12 hr 150 mg PO BID Patient Comments: PLEASE SEE ATTACHED FOR DETAILED DIRECTIONS Problem Reconciliation Problems Reviewed?: Yes Patient Discharge Instructions ACTIVITY: Continue current activity DIET: continue same diet Additional Instructions: Please follow-up with [facility] on Sunday 05/[address] of Chest at [facility] in [place] Dr. Astudillo will see him next week, if you have not heard from Baudilio's office by Saturday, please call [phone] for appt time Patient Instructions: DI for Pneumonia -- Adult, DI for Lung Cancer, DI for Respiratory Failure Providers Primary Care Provider: Leda Hernandez Admit Provider: Dario Storey Attending Provider: Dario Storey
== END 2023-05-11 15:03 | disposition short-term general hospital (02) | DRG 193 ==
LOC: ER 12:01 → 2ND 12:12
PROVIDERS: Internal Medicine; Internal Medicine Pulmonary Disease; Admitting Provider Internal Medicine Adolescent Medicine; Emergency Provider Emergency Medicine; PCP Nurse Practitioner Family; Visit Provider Internal Medicine Adolescent Medicine
DX: J18.9 Pneumonia, unspecified organism (principal); J96.01 Acute respiratory failure with hypoxia; C34.12 Malignant neoplasm of upper lobe, left bronchus or lung; E11.9 Type 2 diabetes mellitus without complications; J43.9 Emphysema, unspecified; Z87.891 Personal history of nicotine dependence
CPT/HCPCS: 36410; 36415; 71045; 71275; 80053; 82803; 82962; 83036; 83605; 83735; 84484; 85025; 85610; 86140; 87040; 87070; 87205; 87636; 93005; 94640; 94667; 94760; 94761; 99285; G0238; J0456; J0696; J2543; Q9967

== ENCOUNTER 2023-07-12 03:28 | Emergency (ER) | payer OTHER, SELFPAY ==
[2023-07-12] VITALS (7 sets, daily range): BP systolic 122–165; BP diastolic 62–95; PULSE 92–126; RESP 18–25; TEMP 36.8; O2SAT 92–96; BMI 26.3; BMI 23.1
--- NOTE | 2023-07-12 03:31 | ECG_ITS ---
APPROVED REPORT Exam: Resting ECG HR:125 bpm ECG Measurements Heart Rate 125 AXES MT 147 P 88 QRSd 89 QRS 88 QT 297 T 81 QTc 371 Conclusion SINUS TACHYCARDIA WITH OCCASIONAL VENTRICULAR PREMATURE COMPLEXES ABNORMAL RHYTHM ECG UNCONFIRMED REPORT Electronically signed by : Gerson Xiao MD 07/13/2023 06:33:59
--- NOTE | 2023-07-12 03:39 | CT_ITS ---
PROCEDURE INFORMATION: Exam: CTA Chest With Contrast Exam date and time: 07/12/2023 4:10 AM Age: 62 years old Clinical indication: Pain; Chest pressure; Patient HX: Lung CA left upper lung; Additional info: L sided pleuritic chest pain, lung CA PT TECHNIQUE: Imaging protocol: Computed tomographic angiography of the chest with contrast. Exam focused on the arteries. 3D rendering (Not supervised by radiologist): MIP and/or 3D reconstructed images were created by the technologist. Radiation optimization: All CT scans at this facility use at least one of these dose optimization techniques: automated exposure control; mA and/or kV adjustment per patient size (includes targeted exams where dose is matched to clinical indication); or iterative reconstruction. Contrast material: ISOVUE; Contrast volume: 70 ml; Contrast route: INTRAVENOUS (IV); COMPARISON: CT ANGIO CHEST PE PROTOCOL 05/08/2023 8:27 AM FINDINGS: Pulmonary arteries: Timing of the examination is suboptimal for the detection of pulmonary emboli but none are identified. Aorta: Unremarkable. No aortic aneurysm. No aortic dissection. Lungs: A large necrotic mass is again seen within the left upper lobe this contains air. It is difficult to measure directly because of adjacent soft tissues and lung atelectasis but currently measures a proximally 10.8 x 5.4 x 8.7 cm. Advanced centrilobular emphysema is noted. There is an irregular area of thickened scarring seen in the right lung apex which does not appear to be significantly changed. There is an area of increasing airspace disease in density within the left lung base which was not previously present. This may represent developing infiltrate. Pleural spaces: Unremarkable. No pneumothorax. No pleural effusion. Heart: Unremarkable. No cardiomegaly. No pericardial effusion. Lymph nodes: Left hilar lymphadenopathy is noted. Bones/joints: There is an acute fracture of the posterolateral aspect of the left 6th rib although this is unchanged from the prior study of 05/08/2023. Soft tissues: Otherwise unremarkable IMPRESSION: 1. Large necrotic left upper lobe mass increased slightly in size when compared to the prior study. This contains air and necrotic tissue. There is associated left hilar lymphadenopathy. 2. Stable non healing left 6th posterolateral rib fracture. 3. Some acute appearing airspace disease is seen in the left lung base which may represent developing infiltrate. 4. No obvious pulmonary emboli noted but opacification of the pulmonary arteries is suboptimal and sensitivity is therefore limited. COMMENTS: The presence of pulmonary emphysema on CT is an independent risk factor for lung cancer. In the absence of a history or active diagnosis of lung cancer, it is recommended that this patient with emphysema be evaluated for enrollment in a low dose CT lung cancer screening program.
[2023-07-12 03:48] LABS: Basophils % 0.3 % (0.1-2.0); Eosinophils # 0.3 K/mm3 (0.0-0.4); Eosinophils % 3.5 % (0.1-12.0); Hematocrit 42.5 % (42.0-52.0); Hemoglobin 13.8 g/dL (14.1-18.0); Lymphocytes # 1.1 K/mm3 (0.7-4.5); Lymphocytes % 11.1 % (10-50); Mean Corpuscular HGB Conc 32.5 g/dL (31.8-35.4); Mean Corpuscular Hemoglobin 27.8 pg (27.0-31.2); Mean Corpuscular Volume 85.4 fl (80-94); Mean Platelet Volume 7.5 fl (7.4-10.4); Monocytes # 0.5 K/mm3 (0.1-1.0); Monocytes % 5.3 % (1.7-9.3); Neutrophils # 7.8 K/mm3 (1.8-7.8); Neutrophils % 79.8 % (37.0-80.0); Platelet Count 624 K/mm3 (142-424); Red Blood Count 4.97 M/mm3 (4.60-6.20); Red Cell Distribution Width 15.6 % (11.5-17.5); White Blood Count 9.7 K/mm3 (4.8-10.8)
[2023-07-12] MEDS: ACETAMINOPHEN 500MG TAB 1000 MG PO (03:53)
[2023-07-12] MEDS: ONDANSETRON 4MG/2ML VIAL 4 MG IV (03:53)
[2023-07-12] MEDS: MORPHINE 4MG/ML SYRINGE 4 MG IV (03:53)
[2023-07-12] MEDS: KETOROLAC 30MG/ML VIAL 15 MG IV (03:54)
[2023-07-12] MEDS: LIDOCAINE 5% TRANSDERMAL PATCH 1 EACH TP (03:54)
[2023-07-12 03:55] LABS: Alanine Aminotransferase 29 U/L (12-78); Albumin Level 4.1 g/dl (3.5-5.0); Alkaline Phosphatase 77 U/L (38-126); Anion Gap 11.1 mEq/L (5-15); Aspartate Amino Transferase 22 U/L (17-59); Bilirubin,Total 0.4 mg/dl (0.2-1.3); Blood Urea Nitrogen 11 mg/dl (9-20); Calcium 9.8 mg/dl (8.4-10.2); Carbon Dioxide 32 mmol/L (22.0-30.0); Chloride 98 mmol/L (98-107); Creatinine Clearance Estimated 128 mL/min (50-200); Estimated Glomerular Filt Rate 137 ml/min (>60); GFR (African American) 166 ML/MIN (>60); Globulin 4.2 g/dL (1.3-3.2); Glucose 208 mg/dl (74-100); Potassium 4.1 mmoL/L (3.5-5.1); Sodium 137 mmol/L (136-145); Total Protein,Serum 8.3 g/dl (6.3-8.2)
--- NOTE | 2023-07-12 04:02 | [facility].EDCP ---
Discharge Plan Disposition Patient Disposition: Home, Self-Care Condition: Good Prescriptions Prescriptions: New prednisone 50 mg tablet 50 mg PO DAILY 5 Days Qty: 5 0RF levofloxacin 750 mg tablet 750 mg PO DAILY 10 Days Qty: 10 0RF No Action acetylcysteine 200 mg/mL (20 %) solution 1 ml inhalation Q8H Qty: 90 0RF prednisone 5 mg tablet 5 mg PO DAILY Qty: 30 0RF Breztri Aerosphere 160-9-4.8 mcg/actuation HFA aerosol inhaler 2 inh inhalation BID 90 Days Qty: 10.7 3RF ipratropium-albuterol 0.5 mg-3 mg(2.5 mg base)/3 mL solution for nebulization 3 ml inhalation QIDP PRN (Reason: shortness of breath or wheezing) Qty: 180 3RF sodium chloride 3 % solution for nebulization 4 ml inhalation BID oxycodone-acetaminophen 10-325 mg tablet 1 tab PO TID albuterol sulfate [Ventolin HFA] 90 mcg/actuation HFA aerosol inhaler 2 puff inhalation Q4HP PRN (Reason: shortness of breath or wheezing) Qty: 8.5 11RF (DME) FreeStyle Lite Strips Strip See Rx Instructions .ROUTE .COMPLEX Rx Instructions: USE DIRECTED (DME) blood-glucose meter [FreeStyle Lite Meter] Kit See Rx Instructions .Route Rx Instructions: As directed (DME) lancets [FreeStyle Lancets] 28 gauge misc See Rx Instructions .Route Rx Instructions: As directed bupropion HCl 150 mg tablet sustained-release 12 hr 150 mg PO BID Patient Comments: PLEASE SEE ATTACHED FOR DETAILED DIRECTIONS Referrals Follow up/Referrals: Leda Hernandez APRN [Primary Care Provider] - See instructions Activity Restrictions/Add. Instructions Additional Instructions/Restrictions: You were evaluated in the emergency department today. 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 Use your inhalers at home. Follow-up closely with your wet pan operator and oncologist. Return to the emergency department for new or worsening symptoms. Clinical Impressions Clinical Impression: Pneumonia, Acute exacerbation of chronic obstructive pulmonary disease, Mass of left lung Discharge ED Provider: Karen Blount General Chief Complaint: Chest Pain Stated Complaint: chest pain x2 days Time Seen by Provider: 07/12/23 03:31 Mode of Arrival: Ambulatory Source of Information: Patient Limitations: No Limitations Description of Symptoms (Recalled from ER Triage Doc. by RN): Patient reports burning chest pain that has been ongoing for several days and is worse with inspiration and movement. Patient states that he seen his oncologist yesterday and they changed his pain medication to morphine 15mg and he took one yesterday approximately 5pm with no relief. He states that his skin is tender especially on the left side of his chest. Patient is a lung cancer patient that has completed radiation therapy and is now completing amino therapy. History of Present Illness HPI narrative: This patient is a 62-year-old male with a history of lung cancer status post radiation therapy currently on immunotherapy, hypertension, hyperlipidemia, and COPD presenting to the emergency department for evaluation with concern for left-sided chest pain. It is mostly in his left upper chest and radiates up into his neck. He states that it has been going on for about a week now, but is acutely worsened over the last few days. He has been seeing his oncologist and they have been trying to get his pain under control with medications. He states that he was changed from hydrocodone to oxycodone and then from oxycodone to morphine, but he is getting no improvement. He states that the pain is severe and is worse with any deep breath or movement. He also notes that it is tender to palpation. He also complains of shortness of breath. No other concerns noted at this time. Related Data Home Medications Medication Instructions Recorded Confirmed blood sugar diagnostic (FreeStyle 12/05/22 06/24/23 Lite Strips) blood-glucose meter (FreeStyle 12/05/22 06/24/23 Lite Meter kit) lancets 28 gauge (FreeStyle 12/05/22 06/24/23 Lancets) bupropion HCl 150 mg tablet,12 hr 150 mg PO BID Smoking Cessation 05/08/23 06/24/23 sustained-release oxycodone-acetaminophen 10 mg-325 1 tab PO TID 05/30/23 06/24/23 mg tablet sodium chloride 3 % for 4 ml inhalation BID 05/30/23 06/24/23 nebulization Previous Rx's Medication Instructions Recorded albuterol sulfate 90 mcg/actuation 2 puff inhalation Q4HP PRN 06/06/23 aerosol inhaler (Ventolin HFA) shortness of breath or wheezing #8.5 grams budesonide 160 mcg-glycopyr 9 2 inh inhalation BID 90 days #10.7 06/12/23 mcg-formot 4.8 mcg/actuation HFA grams inhaler (Breztri Aerosphere) ipratropium 0.5 mg-albuterol 3 mg 3 ml inhalation QIDP PRN shortness 06/12/23 (2.5 mg base)/3 mL nebulization of breath or wheezing #180 mL soln acetylcysteine 200 mg/mL (20 %) 1 ml inhalation Q8H #90 mL 06/24/23 solution prednisone 5 mg tablet 5 mg PO DAILY #30 tabs 06/24/23 levofloxacin 750 mg tablet 750 mg PO DAILY 10 days #10 tabs 07/12/23 prednisone 50 mg tablet 50 mg PO DAILY 5 days #5 tabs 07/12/23 Allergies Allergy/AdvReac Type Severity Reaction Status Date / Time chemo Allergy Severe respiratory Uncoded 06/24/23 14:09 distress [facility] Disclaimer: The information contained in this section may have been updated after the patient was seen, as this information can be updated by other users. Medical History Abdominal bloating Abnormal computerized axial tomography of chest Acute dyspnea Acute respiratory failure with hypoxia Annual physical exam Candidiasis of mouth Constipation COPD mixed type Cough Diabetes mellitus Diabetes mellitus, type 2 Dyspnea Dyspnea on exertion Encounter for screening for diabetes mellitus Establishing care with new doctor, encounter for Hilar lymphadenopathy Immunotherapy Insomnia Lung cancer, upper lobe Lung mass Mass of upper lobe of left lung Mediastinal lymphadenopathy Obstructive pneumonia Pneumonia Pneumonia Pneumonia Postobstructive pneumonia Primary lung cancer Pulmonary emphysema Pulmonary nodules Screening cholesterol level Smoking greater than 30 pack years Vomiting Surgical History History of bronchoscopy History of local excision of skin lesion Family History Grandmother Cancer Mother COPD (chronic obstructive pulmonary disease) Cancer Social History Smoking Status: Current some day smoker tobacco type: cigarettes packs per day: 1 years smoked: 43 smoking status stop date: 05/03/23 alcohol intake: current substance use type: denies use current occupational status: unemployed Travel in the last 8 weeks: Inside the [facility] ROS Obtained: Yes All systems reviewed & no additional complaints except as documented Physical Exam General General appearance: alert Comment: Very uncomfortable appearing Head Head exam: atraumatic and normocephalic Eye Eye exam: Present normal appearance, PERRL and EOMI ENT ENT exam: Present normal exam, normal oropharynx, mucous membranes moist and normal external ear exam Neck Neck exam: Present normal inspection, full ROM and trachea midline; Absent tenderness Chest Chest inspection: Present symmetric chest wall rise and tenderness (Left upper chest) Respiratory Respiratory exam: Present wheezes (Left side), accessory muscle use and prolonged expiratory phase; Absent respiratory distress or stridor Cardiovascular Cardiovascular exam: Present normal rhythm and tachycardia Abdominal Exam Abdominal exam: Present soft; Absent distention, tenderness or guarding Extremities Exam Extremities exam: Present normal inspection, full ROM and normal capillary refill; Absent tenderness or edema Back Exam Back exam: Present normal inspection and full ROM; Absent tenderness Neurological Exam Neurological exam: Present alert, oriented X3, CN II-XII intact and normal gait; Absent motor sensory deficit Psychiatric Psychiatric exam: Present normal affect and normal mood Skin Skin exam: Present warm and dry HEART Score HEART Score HEART Score assessment performed?: Yes History (anamnesis): Slightly suspicious ECG: Non-specific disturbance Age: 45-65 years Risk factors: 3 or more risk factors Troponin: </= normal limit HEART Score: 4 Critical Care Critical Care Time Critical Care Time: No Medical Decision Making Medical Records Medical records reviewed: Yes I reviewed the patient's medical records. Tony Inquiry Pt receiving controlled substance: No Vital Signs Vital Signs: 07/12/23 03:29 07/12/23 03:37 07/12/23 04:34 Temperature 98.2 F Temperature Source Oral Pulse Rate 120 H 114 H Pulse Rate [Right Radial] 126 H Respiratory Rate 25 H Blood Pressure Blood Pressure [Right Arm] 153/95 H Blood Pressure Mean Blood Pressure Mean [Right Arm] 114 Blood Pressure Source [Right Arm] Automatic Cuff Blood Pressure Position [Right Arm] Sitting 02 Sat by Pulse Oximetry 96 Oxygen Delivery Method Room Air 07/12/23 04:34 07/12/23 04:30 07/12/23 05:01 Temperature Temperature Source Pulse Rate 110 H 115 H 100 H Pulse Rate [Right Radial] Respiratory Rate Blood Pressure 165/95 H 122/67 Blood Pressure [Right Arm] Blood Pressure Mean 111 85 Blood Pressure Mean [Right Arm] Blood Pressure Source [Right Arm] Blood Pressure Position [Right Arm] 02 Sat by Pulse Oximetry 96 92 L Oxygen Delivery Method 07/12/23 05:30 Temperature Temperature Source Pulse Rate 98 H Pulse Rate [Right Radial] Respiratory Rate Blood Pressure 122/76 Blood Pressure [Right Arm] Blood Pressure Mean 92 Blood Pressure Mean [Right Arm] Blood Pressure Source [Right Arm] Blood Pressure Position [Right Arm] 02 Sat by Pulse Oximetry 92 L Oxygen Delivery Method Lab Data Labs: Lab Results 07/12/23 03:40: WBC 9.7, RBC 4.97, Hgb 13.8 L, Hct 42.5, MCV 85.4, MCH 27.8, MCHC 32.5, RDW 15.6, Plt Count 624 H, MPV 7.5, Neut % (Auto) 79.8, Lymph % (Auto) 11.1, Cloud % (Auto) 5.3, Eos % (Auto) 3.5, Baso % (Auto) 0.3, Neut # (Auto) 7.8, Lymph # (Auto) 1.1, Cloud # (Auto) 0.5, Eos # (Auto) 0.3, Baso # (Auto) 0.0, Sodium 137, Potassium 4.1, Chloride 98, Carbon Dioxide 32 H, Anion Gap 11.1, BUN 11, Creatinine 0.60 L, Estimated Creat Clear 128, Estimated GFR 137, Est GFR ( Amer) 166, Glucose 208 H, Calcium 9.8, Total Bilirubin 0.4, AST 22, ALT 29, Alkaline Phosphatase 77, Troponin I < 0.01, Total Protein 8.3 H, Albumin 4.1, Globulin 4.2 H, Albumin/Globulin Ratio 1.0 L 07/12/23 03:40 07/12/23 03:40 Response Orders (Tests/Meds): ED MEDICATIONS Discontinued Medications Generic Name Dose Route Start Last Admin Trade Name Freq PRN Reason Stop Dose Admin Acetaminophen 1,000 mg 07/12/23 03:41 07/12/23 03:53 Acetaminophen 500mg Tab PO 07/12/23 03:42 1,000 mg ONCE ONE Administration Albuterol/Ipratropium 3 ml 07/12/23 03:48 07/12/23 04:33 Ipratropium/Albuterol 3 Ml [facility] 07/12/23 03:49 3 ml ONCE ONE Administration Hydromorphone HCl 2 mg 07/12/23 05:36 07/12/23 05:47 Hydromorphone 2mg/Ml Syringe IV 07/12/23 05:37 2 mg ONCE ONE Administration Iopamidol 70 ml 07/12/23 04:17 07/12/23 04:18 Iopamidol-370 (76%);100ml Bottle IV 07/12/23 04:18 70 ml ONCE ONE Administration Ketorolac Tromethamine 15 mg 07/12/23 03:42 07/12/23 03:54 Ketorolac 30mg/Ml Vial IV 07/12/23 03:43 15 mg ONCE ONE Administration Levofloxacin 750 mg 07/12/23 05:15 07/12/23 05:31 Levofloxacin 750 Mg Tablet PO 07/12/23 05:16 750 mg ONCE ONE Administration Lidocaine 1 each 07/12/23 03:41 07/12/23 03:54 Lidocaine 5% Transdermal Patch TP 07/12/23 03:42 1 each ONCE ONE Administration Morphine Sulfate 4 mg 07/12/23 03:41 07/12/23 03:53 Morphine 4mg/Ml Syringe IV 07/12/23 03:42 4 mg ONCE ONE Administration Ondansetron HCl 4 mg 07/12/23 03:41 07/12/23 03:53 Ondansetron 4mg/2ml Vial IV 07/12/23 03:42 4 mg ONCE ONE Administration Prednisone 60 mg 07/12/23 05:15 07/12/23 05:31 Prednisone 20mg Tab PO 07/12/23 05:16 60 mg ONCE ONE Administration Sodium Chloride 10 ml 07/12/23 04:17 07/12/23 04:18 Sodium Chloride 0.9% 10ml Syr (Rad Only) IV 07/12/23 04:18 10 ml ONCE ONE Administration ORDERS Category Date Time Status CT angio chest PE protocol Stat Cat Scan 07/12/23 03:39 Completed Complete Blood Count Auto Diff Stat Lab 07/12/23 03:40 Completed Comprehensive Metabolic Panel Stat Lab 07/12/23 03:40 Completed Troponin I Stat Lab 07/12/23 03:40 Completed ECG initial [place] Routine Y 07/12/23 03:31 Completed ECG Data Tracing #1: Attestation: I reviewed this ECG and interpreted as documented below: ECG Narrative: Sinus tachycardia with a ventricular rate of [address] elevations concerning for ischemia. PVC noted. ECG initial impression date: 07/12/23 ECG initial impression time: 03:36 MDM Narrative Medical Decision Narrative: In summary, this patient is a 62-year-old male presenting to the Emergency Department for evaluation of left-sided chest pain. Differential diagnoses considered include but are not limited to PE, ACS, pleurisy, pneumonia, pneumothorax, COPD exacerbation, costochondritis. Ruling out the most morbid conditions drove assessment. It should be noted patient's history includes lung cancer on immunotherapy, COPD, hypertension, hyperlipidemia, type 2 diabetes which may or may not be at goal therapy. This complicates all aspects of care by increasing patient's risk for morbidity. I reviewed patient's past medical records and noted previous evaluation for similar symptoms back in April. At that time, patient was found to have pneumonia. He was discharged home with therapy. On exam, the patient is very uncomfortable appearing. He is tachycardic to the 120s with wheezing noted only on the left side. Workup included CBC, CMP, troponin, EKG, and CT PE. Patient was given IV morphine, oral Tylenol, IV Toradol, and a topical Lidoderm patch for symptomatic improvement. EKG demonstrates sinus tachycardia without acute ST changes. I independently interpreted CT scan prior to the radiologist read and noted concerns for pneumonia around the patient's lung mass. Radiology noted that the patient's mass slightly larger than previous. Please see their read for final interpretation. I did notify the patient of this. Labs were obtained that demonstrated no acutely concerning abnormalities at this time with no significant leukocytosis.. On reassessment, patient had some improvement after administration of interventions above. His heart rate and tachycardia significantly improved with pain control. His wheezing improved with DuoNeb. I feel he likely has pneumonia with acute COPD exacerbation, similar to April. For this, he was given Levaquin and oral prednisone. He was given IV Dilaudid for further pain control given he still is having some pain.. At this time, patient was deemed to be appropriate for discharge given that he is on room air with reassuring vitals and lab evaluation. Advised that he follow-up closely with his oncologist and wet pan operator given his mass is slightly larger and he has pneumonia. He was given prescriptions for Levaquin and prednisone and instructions for his inhaler use at home. He called his granddaughter for a ride home given he received narcotics. He left in stable condition.
[2023-07-12 04:07] LABS: Troponin I < 0.01 ng/ml (0.00-0.034)
[2023-07-12] MEDS: SODIUM CHLORIDE 0.9% 10ML SYR (RAD ONLY) 10 ML IV (04:18)
[2023-07-12] MEDS: IOPAMIDOL-370 (76%);100ML BOTTLE 70 ML IV (04:18)
[2023-07-12] MEDS: IPRATROPIUM/ALBUTEROL 3 ML NEB IH (04:33)
[2023-07-12] MEDS: levoFLOXacin 750 MG TABLET PO (05:31)
[2023-07-12] MEDS: predniSONE 20MG TAB 60 MG PO (05:31)
[2023-07-12] MEDS: HYDROMORPHONE 2MG/ML SYRINGE 2 MG IV (05:47)
== END 2023-07-12 07:25 | disposition home or self-care (01) ==
PROVIDERS: Emergency Provider Emergency Medicine; PCP Nurse Practitioner Family
DX: J44.1 Chronic obstructive pulmonary disease with (acute) exacerbation (principal); J18.9 Pneumonia, unspecified organism; R07.9 Chest pain, unspecified; C34.90 Malignant neoplasm of unspecified part of unspecified bronchus or lung; I10 Essential (primary) hypertension; E78.5 Hyperlipidemia, unspecified; R06.02 Shortness of breath; E11.9 Type 2 diabetes mellitus without complications; R00.0 Tachycardia, unspecified; F17.210 Nicotine dependence, cigarettes, uncomplicated
CPT/HCPCS: 71275; 80053; 84484; 85025; 93005; 96374; 96375; 99285; J2405; Q9967

== ENCOUNTER 2023-07-14 14:03 | Observation (INO) | payer OTHER, SELFPAY ==
[2023-07-14] VITALS (12 sets, daily range): BP systolic 118–152; BP diastolic 57–96; PULSE 87–114; RESP 16–22; TEMP 36.7–37.1; O2SAT 92–98; BMI 26.4; BMI 26.3
--- NOTE | 2023-07-14 14:38 | ECG_ITS ---
APPROVED REPORT Exam: Resting ECG HR:92 bpm ECG Measurements Heart Rate 92 AXES WA 150 P 81 QRSd 94 QRS 88 QT 328 T 89 QTc 378 Conclusion SINUS RHYTHM NORMAL ECG UNCONFIRMED REPORT Electronically signed by : Gerson Xiao MD 07/15/2023 17:58:05
--- NOTE | 2023-07-14 14:51 | PC.NURSE ---
Dr. Soler at [facility] for pt eval
--- NOTE | 2023-07-14 14:58 | PC.NURSE ---
DR SORTO PAGED
--- NOTE | 2023-07-14 14:59 | PC.NURSE ---
DR BLANTON SPEAKING WITH DR SORTO
--- NOTE | 2023-07-14 15:02 | ED_ITS ---
Discharge Plan Disposition Patient Disposition: Admitted Prescriptions Prescriptions: No Action acetylcysteine 200 mg/mL (20 %) solution 1 ml inhalation Q8H Qty: 90 0RF prednisone 5 mg tablet 5 mg PO DAILY Qty: 30 0RF sodium chloride 3 % solution for nebulization 4 ml inhalation BID oxycodone-acetaminophen 10-325 mg tablet 1 tab PO TID Breztri Aerosphere 160-9-4.8 mcg/actuation HFA aerosol inhaler 2 inh inhalation BID Qty: 10.7 11RF ipratropium-albuterol 0.5 mg-3 mg(2.5 mg base)/3 mL solution for nebulization 3 ml inhalation QIDP PRN (Reason: shortness of breath or wheezing) Qty: 180 3RF albuterol sulfate [Ventolin HFA] 90 mcg/actuation HFA aerosol inhaler 2 puff inhalation Q4HP PRN (Reason: shortness of breath or wheezing) Qty: 8.5 11RF (DME) FreeStyle Lite Strips Strip See Rx Instructions .ROUTE .COMPLEX Rx Instructions: USE DIRECTED (DME) blood-glucose meter [FreeStyle Lite Meter] Kit See Rx Instructions .Route Rx Instructions: As directed (DME) lancets [FreeStyle Lancets] 28 gauge misc See Rx Instructions .Route Rx Instructions: As directed bupropion HCl 150 mg tablet sustained-release 12 hr 150 mg PO BID Patient Comments: PLEASE SEE ATTACHED FOR DETAILED DIRECTIONS prednisone 50 mg tablet 50 mg PO DAILY 5 Days Qty: 5 0RF levofloxacin 750 mg tablet 750 mg PO DAILY 10 Days Qty: 10 0RF Referrals Follow up/Referrals: Leda Hernandez APRN [Primary Care Provider] - See instructions Clinical Impressions Clinical Impression: Lung cancer, upper lobe, Obstructive pneumonia, Cancer related pain Discharge ED Provider: Dulce Soler General Adult HPI General Chief complaint: PAIN Stated complaint: lung pain back pain Time Seen by Provider: 07/14/23 14:48 Mode of Arrival: Ambulatory Source of Information: Patient Limitations: No Limitations Description of Symptoms (Recalled from ER Triage Doc. by RN): patient states he has history of lung cancer was seen here 2 days ago and diagnosed with pneumonia and given antibiotic. Reports he is having left lung pain still and not able to control pain with oral morphine. History of Present Illness HPI narrative: Patient is a 62-year-old male with a history of stage IIIb non-small cell lung cancer followed by Dr. Leos [facility] status post x-ray therapy chemo and immunotherapy. He recently was admitted for diagnosis of po stobstructive pneumonia last month he was seen [facility] where interventional pulmonology were consulted but they elected against a stent as the patient did not have any viable parenchyma distal to the area of concern. Patient was seen last night in our emergency department worsening symptoms mainly severe pain. No fevers still has a cough and some wheezing. Had a CT scan which was performed which showed increasing evidence of the lung disease specifically the mass and areas of necrosis and he returns to our emergency department today with severe worsening pain despite oral morphine at home. Related Data Home Medications Medication Instructions Recorded Confirmed blood sugar diagnostic (FreeStyle 12/05/22 06/24/23 Lite Strips) blood-glucose meter (FreeStyle 12/05/22 06/24/23 Lite Meter kit) lancets 28 gauge (FreeStyle 12/05/22 06/24/23 Lancets) bupropion HCl 150 mg tablet,12 hr 150 mg PO BID Smoking Cessation 05/08/23 06/24/23 sustained-release oxycodone-acetaminophen 10 mg-325 1 tab PO TID 05/30/23 06/24/23 mg tablet sodium chloride 3 % for 4 ml inhalation BID 05/30/23 06/24/23 nebulization Previous Rx's Medication Instructions Recorded acetylcysteine 200 mg/mL (20 %) 1 ml inhalation Q8H #90 mL 06/24/23 solution prednisone 5 mg tablet 5 mg PO DAILY #30 tabs 06/24/23 albuterol sulfate 90 mcg/actuation 2 puff inhalation Q4HP PRN 07/12/23 aerosol inhaler (Ventolin HFA) shortness of breath or wheezing #8.5 grams budesonide 160 mcg-glycopyr 9 2 inh inhalation BID #10.7 grams 07/12/23 mcg-formot 4.8 mcg/actuation HFA inhaler (Breztri Aerosphere) ipratropium 0.5 mg-albuterol 3 mg 3 ml inhalation QIDP PRN shortness 07/12/23 (2.5 mg base)/3 mL nebulization of breath or wheezing #180 mL soln levofloxacin 750 mg tablet 750 mg PO DAILY 10 days #10 tabs 07/12/23 prednisone 50 mg tablet 50 mg PO DAILY 5 days #5 tabs 07/12/23 Allergies Allergy/AdvReac Type Severity Reaction Status Date / Time chemo Allergy Severe respiratory Uncoded 06/24/23 14:09 distress [facility] Disclaimer: The information contained in this section may have been updated after the patient was seen, as this information can be updated by other users. Medical History Abdominal bloating Abnormal computerized axial tomography of chest Acute dyspnea Acute respiratory failure with hypoxia Annual physical exam Candidiasis of mouth Constipation COPD mixed type Cough Diabetes mellitus Diabetes mellitus, type 2 Dyspnea Dyspnea on exertion Encounter for screening for diabetes mellitus Establishing care with new doctor, encounter for Hilar lymphadenopathy Immunotherapy Insomnia Lung cancer, upper lobe Lung mass Mass of upper lobe of left lung Mediastinal lymphadenopathy Obstructive pneumonia Pneumonia Pneumonia Pneumonia Postobstructive pneumonia Primary lung cancer Pulmonary emphysema Pulmonary nodules Screening cholesterol level Smoking greater than 30 pack years Vomiting Surgical History History of bronchoscopy History of local excision of skin lesion Family History Grandmother Cancer Mother COPD (chronic obstructive pulmonary disease) Cancer Social History Smoking Status: Current every day smoker tobacco type: cigarettes packs per day: 1 years smoked: 43 smoking status stop date: 05/03/23 alcohol intake: current substance use type: denies use current occupational status: unemployed Travel in the last 8 weeks: Inside the [place] ROS Obtained: Yes All systems reviewed & no additional complaints except as documented Physical Exam General General appearance: alert Respiratory Respiratory exam: Present normal lung sounds bilaterally Cardiovascular Cardiovascular exam: Present regular rate Neurological Exam Neurological exam: Present alert Medical Decision Making Tony Inquiry Pt receiving controlled substance: No Vital Signs: 07/14/23 14:04 Temperature 98.1 F Temperature Source Oral Pulse Rate [Right] 103 H Respiratory Rate 20 Blood Pressure [Right Arm] 146/96 H Blood Pressure Mean [Right Arm] 112 Blood Pressure Source [Right Arm] Automatic Cuff 02 Sat by Pulse Oximetry 98 Orders (Tests/Meds): ED MEDICATIONS Generic Name Dose Route Start Last Admin Trade Name Freq PRN Reason Stop Dose Admin Lactated Ringer's 1,000 mls @ 999 mls/hr 07/14/23 15:00 07/14/23 15:13 Lactated Ringer's 1000 Ml Bag IV 07/14/23 16:00 999 mls/hr .Q1H1M MCKAY Administration Sodium Chloride 3 ml 07/14/23 15:01 Sodium Chloride 3% 15ml Neb IH 08/13/23 15:00 ONCE PRN INDUCE SPUTUM COLLECTION Discontinued Medications Generic Name Dose Route Start Last Admin Trade Name Jami PRN Reason Stop Dose Admin Amoxicillin/Clavulanate Potassium 1 each 07/14/23 15:31 Amoxicillin/Clavulanate Potassium 875/125mg Tablet PO 07/14/23 15:32 ONCE ONE Hydromorphone HCl 1 mg 07/14/23 14:58 07/14/23 15:14 Hydromorphone 2mg/Ml Syringe IV 07/14/23 14:59 1 mg ONCE ONE Administration ORDERS Category Date Time Status CBC w/Auto Diff [Complete Blood Count Auto Diff] Stat Lab 07/14/23 15:05 Received CMP [Comprehensive Metabolic Panel] Stat Lab 07/14/23 15:05 Received Lactic Acid Stat Lab 07/14/23 15:05 Received Blood Culture Stat Micro 07/14/23 15:02 ORD Sputum Culture & Gram Stain Stat Micro 07/14/23 15:01 Ordered 12-lead EKG Request [ECG Request] Stat Y 07/14/23 14:40 Ordered ECG Data Tracing #1: I reviewed this ECG and interpreted as documented below: Ventricular rate of 92 no acute ischemic changes noted there is some Q waves in the inferior leads which are nonspecific no significant conduction abnormalities noted there is normal axis Medical Decision Narrative: Patient is a 62-year-old male I reviewed his workup from last night and spoke with our corporate administrative assistant Dr. Rao. He recommended that I call [facility] [place] as he is followed by Dr. Clements he mated interventional pulmonology again. He does not have any evidence clinically of sepsis he is not hypoxic not any respiratory distress his primary concern today is severe pain. Dilaudid has been given to an emergency department. Will try to get him either transferred or placed on a list to be transferred [facility]. I subsequently spoke to Dr. Carty. She contacted transfer center and we both agreed this is not an emergent surgical need and the fact that the patient's interventional corporate administrative assistant in the past has opted to not intervene unlikely they will do anything emergently but the patient was placed on the list. Unsure as to when that will be transferred. After discussing with our corporate administrative assistant here he agrees to manage the patient here for pain control would like the patient to be started on oral Augmentin in the event that this is possibly a postobstructive pneumonia. Patient will be admitted for further evaluation and treatment. Critical Care Critical Care Time Critical Care Time: No
[2023-07-14] MEDS: LACTATED RINGERS 1000ML 1,000 ML 999 ML IV (15:13)
[2023-07-14] MEDS: HYDROMORPHONE 2MG/ML SYRINGE 1 MG IV ×2 (15:14→18:40)
--- NOTE | 2023-07-14 15:28 | PC.NURSE ---
DR BLANTON SPEAKING WITH [facility]
[2023-07-14 15:32] LABS: Chloride 98 mmol/L (98-107); Potassium 3.7 mmoL/L (3.5-5.1); Sodium 135 mmol/L (136-145)
[2023-07-14 15:34] LABS: Blood Urea Nitrogen 16 mg/dl (9-20); Creatinine Clearance Estimated 142 mL/min (50-200); Estimated Glomerular Filt Rate 137 ml/min (>60); GFR (African American) 166 ML/MIN (>60)
[2023-07-14 15:35] LABS: Alanine Aminotransferase 31 U/L (12-78); Albumin Level 3.7 g/dl (3.5-5.0); Alkaline Phosphatase 80 U/L (38-126); Anion Gap 10.7 mEq/L (5-15); Aspartate Amino Transferase 26 U/L (17-59); Bilirubin,Total 0.3 mg/dl (0.2-1.3); Calcium 9.3 mg/dl (8.4-10.2); Carbon Dioxide 30 mmol/L (22.0-30.0); Globulin 3.7 g/dL (1.3-3.2); Glucose 201 mg/dl (74-100); Lactic Acid 2.2 mmol/L (0.7-2.1); Total Protein,Serum 7.4 g/dl (6.3-8.2)
--- NOTE | 2023-07-14 15:36 | PC.NURSE ---
DR BLANTON SPEAKING WITH DR ARGUELLO
[2023-07-14 15:37] LABS: Basophils % 0.4 % (0.1-2.0); Eosinophils # 0.1 K/mm3 (0.0-0.4); Hematocrit 41.5 % (42.0-52.0); Hemoglobin 13.2 g/dL (14.1-18.0); Lymphocytes # 1.3 K/mm3 (0.7-4.5); Lymphocytes % 12.1 % (10-50); Mean Corpuscular HGB Conc 31.7 g/dL (31.8-35.4); Mean Corpuscular Hemoglobin 27.6 pg (27.0-31.2); Mean Corpuscular Volume 86.9 fl (80-94); Mean Platelet Volume 7.5 fl (7.4-10.4); Monocytes # 0.7 K/mm3 (0.1-1.0); Monocytes % 6.9 % (1.7-9.3); Neutrophils # 8.2 K/mm3 (1.8-7.8); Neutrophils % 79.6 % (37.0-80.0); Platelet Count 554 K/mm3 (142-424); Red Blood Count 4.77 M/mm3 (4.60-6.20); Red Cell Distribution Width 15.9 % (11.5-17.5); White Blood Count 10.3 K/mm3 (4.8-10.8)
--- NOTE | 2023-07-14 15:50 | PC.NURSE ---
[facility] NOTIFIED OF ADMISSION
[2023-07-14] MEDS: AMOXICILLIN/CLAVULANATE POTASSIUM 875/125MG TABLET 1 EACH PO (16:11)
[2023-07-14] MEDS: IPRATROPIUM/ALBUTEROL 3 ML NEB IH (16:11)
--- NOTE | 2023-07-14 16:15 | PC.NURSE ---
Dr. Storey at [facility]
[2023-07-14] MEDS: KETOROLAC 30MG/ML VIAL 30 MG IV (16:53)
--- NOTE | 2023-07-14 17:05 | EXP.HP ---
History of Present Illness *Admission Date: 07/14/23 *Reason for visit:: left sided chest pain *History of present illness: Mr. Upton is a 62-year-old male with history of lung cancer, previous pneumonia, obstructive pathology, diabetes. He presented to the ER for the second time in 2 days with intractable pain in his left upper chest. States it radiates through his chest. Occasionally into his arm, worse with breathing and coughing. Has tingling pain on his left chest superficially. His cancer is stage IIIb non-small cell lung cancer followed by Dr. Astudillo at [facility]. He has previously been treated with x-ray therapy, chemo and immunotherapy. Was admitted in May for postobstructive pneumonia and transferred to for interventional pulmonology. Elected not to stent airway due to concern for nonviable parenchyma distal to obstruction. Recent CT performed 2 days ago showed concern for progression of lung disease. Workup in the ER with no fever, white cell count normal, pain however intractable responding to only IV opiates. Stable on room air at this time. Medicine and pulmonology consulted for further management. On evaluation, his pain is doing better after IV Dilaudid. Is unresponsive to oral pain medication. Feels short of breath. Requesting additional nebulizer. Denies nausea, vomiting, syncope. [facility] Disclaimer: The information contained in this section may have been updated after the patient was seen, as this information can be updated by other users. Medical History Abdominal bloating Abnormal computerized axial tomography of chest Acute dyspnea Acute respiratory failure with hypoxia Annual physical exam Candidiasis of mouth Constipation COPD mixed type Cough Diabetes mellitus Diabetes mellitus, type 2 Dyspnea Dyspnea on exertion Encounter for screening for diabetes mellitus Establishing care with new doctor, encounter for Hilar lymphadenopathy Immunotherapy Insomnia Lung cancer, upper lobe Lung mass Mass of upper lobe of left lung Mediastinal lymphadenopathy Obstructive pneumonia Pneumonia Pneumonia Pneumonia Postobstructive pneumonia Primary lung cancer Pulmonary emphysema Pulmonary nodules Screening cholesterol level Smoking greater than 30 pack years Vomiting Surgical History History of bronchoscopy History of local excision of skin lesion Family History Grandmother Mother COPD (chronic obstructive pulmonary disease) Mother Cancer Grandmother Mother Social History Smoking Status: Current every day smoker tobacco type: cigarettes packs per day: 1 years smoked: 43 smoking status stop date: 05/03/23 alcohol intake: current substance use type: denies use current occupational status: unemployed Travel in the last 8 weeks: Inside the [place] Review of Systems Review of Systems Review of systems (narrative): 14 point review of systems performed, pertinent positives and negatives as per [facility] Meds Home Medications and Allergies Home Medications Medication Instructions Recorded Confirmed Type blood sugar diagnostic (FreeStyle 12/05/22 06/24/23 History Lite Strips) blood-glucose meter (FreeStyle 12/05/22 06/24/23 History Lite Meter kit) lancets 28 gauge (FreeStyle 12/05/22 06/24/23 History Lancets) bupropion HCl 150 mg tablet,12 hr 150 mg PO BID Smoking Cessation 05/08/23 06/24/23 History sustained-release oxycodone-acetaminophen 10 mg-325 1 tab PO TID 05/30/23 06/24/23 History mg tablet sodium chloride 3 % for 4 ml inhalation BID 05/30/23 06/24/23 History nebulization acetylcysteine 200 mg/mL (20 %) 1 ml inhalation Q8H #90 mL 06/24/23 06/24/23 Rx solution prednisone 5 mg tablet 5 mg PO DAILY #30 tabs 06/24/23 06/24/23 Rx albuterol sulfate 90 mcg/actuation 2 puff inhalation Q4HP PRN 07/12/23 Rx aerosol inhaler (Ventolin HFA) shortness of breath or wheezing #8.5 grams budesonide 160 mcg-glycopyr 9 2 inh inhalation BID #10.7 grams 07/12/23 Rx mcg-formot 4.8 mcg/actuation HFA inhaler (Breztri Aerosphere) ipratropium 0.5 mg-albuterol 3 mg 3 ml inhalation QIDP PRN shortness 07/12/23 Rx (2.5 mg base)/3 mL nebulization of breath or wheezing #180 mL soln levofloxacin 750 mg tablet 750 mg PO DAILY 10 days #10 tabs 07/12/23 Rx prednisone 50 mg tablet 50 mg PO DAILY 5 days #5 tabs 07/12/23 Rx New Prescriptions to Start Prescriptions: Allergies Allergy/AdvReac Type Severity Reaction Status Date / Time chemo Allergy Severe respiratory Uncoded 06/24/23 14:09 distress Exam Data for Last 24 hours Vital signs and Labs for Last 24 Hours: Temp Pulse Resp BP Pulse Ox 98.1 F 103 H 20 146/96 H 98 07/14/23 14:04 07/14/23 14:04 07/14/23 14:04 07/14/23 14:04 07/14/23 14:04 Laboratory Results - last 24 hr 07/14/23 15:05: WBC 10.3, RBC 4.77, Hgb 13.2 L, Hct 41.5 L, MCV 86.9, MCH 27.6, MCHC 31.7 L, RDW 15.9, Plt Count 554 H, MPV 7.5, Neut % (Auto) 79.6, Lymph % (Auto) 12.1, [place] % (Auto) 6.9, Eos % (Auto) 1.0, Baso % (Auto) 0.4, Neut # (Auto) 8.2 H, Lymph # (Auto) 1.3, [place] # (Auto) 0.7, Eos # (Auto) 0.1, Baso # (Auto) 0.0, Sodium 135 L, Potassium 3.7, Chloride 98, Carbon Dioxide 30, Anion Gap 10.7, BUN 16 D, Creatinine 0.60 L, Estimated Creat Clear 142, Estimated GFR 137, Est GFR ( Amer) 166, Glucose 201 H, Lactate 2.2 H, Calcium 9.3, Total Bilirubin 0.3, AST 26, ALT 31, Alkaline Phosphatase 80, Total Protein 7.4, Albumin 3.7, Globulin 3.7 H, Albumin/Globulin Ratio 1.0 L I & O for Last 24 hours: Intake & Output 07/11/23 07/12/23 07/13/23 07/14/23 23:59 23:59 23:59 23:59 Weight 76.657 kg Constitutional Constitutional: no acute distress, average body habitus, chronically ill appearing and cooperative *Routine HEENT Exam Head: Present normocephalic Eye: Present EOMI and PERRL ENT: Present mucous membranes moist *Routine Neck Exam Neck: Present supple; Absent lymphadenopathy Routine Chest/Breast/Axilla Exam Chest wall: Absent tenderness *Routine Respiratory Exam Respiratory: Present prolonged expiratory phase, rhonchi, diminished air movement and normal respiratory effort; Absent wheezes or crackles Comments: Egophony in left upper lobe *Routine Cardiovascular Exam Cardiovascular: Present tachycardia *Routine Abdominal Exam Abdominal: Present soft and normoactive bowel sounds; Absent tenderness *Routine Rectal Exam Rectal:: deferred *Routine Genitalia Exam Genitalia:: deferred *Routine Extremities Exam Extremities: Absent cyanosis, clubbing or edema *Routine Skin Exam Skin: Present warm; Absent rash *Routine Neurological Exam Neurological: Present alert, oriented X3 and moving all extremities; Absent altered mental status Assessment and Plan *Assessment and plan (1) Cancer related pain: Status: Acute Category: Medical Code(s): G89.3 - Neoplasm related pain (acute) (chronic) (2) Obstructive pneumonia: Status: Acute Category: Medical Code(s): J18.9 - Pneumonia, unspecified organism (3) Primary lung cancer: Status: Inactive Qualifiers: Laterality: left Qualified Code(s): C34.92 - Malignant neoplasm of unspecified part of left bronchus or lung Category: Medical Code(s): C34.90 - Malignant neoplasm of unspecified part of unspecified bronchus or lung (4) Postobstructive pneumonia: Status: Inactive Category: Medical Code(s): J18.9 - Pneumonia, unspecified organism (5) COPD mixed type: Status: Chronic Category: Medical Code(s): J44.9 - Chronic obstructive pulmonary disease, unspecified (6) Diabetes mellitus: Status: Inactive Qualifiers: Diabetes mellitus type: type 2 Diabetes mellitus correction insulin use: without correction use Diabetes mellitus complication status: without complication Qualified Code(s): E11.9 - Type 2 diabetes mellitus without complications Category: Medical Code(s): E11.9 - Type 2 diabetes mellitus without complications (7) Smoking greater than 30 pack years: Status: Acute Category: Social Hx Code(s): F17.210 - Nicotine dependence, cigarettes, uncomplicated Plan 62-year-old male with lung cancer left upper lobe. Presents with worsening intractable pain in left chest. Chest imaging concerning for obstructive pneumonia. Discussed case with ER physician, request admission for treatment of intractable pain, antibiotics for pneumonia. Attempt to transfer patient to was unsuccessful. Medicine agreed to admit for further management. Pulmonology consulted. Problems addressed as follows: Postobstructive pneumonia Lung cancer COPD -Pulmonology consulted, appreciate their recommendations. Initiated on Zosyn 3.375 every 6 hours. Sputum cultures pending. Consideration for bronchoscopy pending discussion with pulmonology tomorrow. On wait list for . -Continue DuoNebs every 6 hours scheduled with every 6 hours as needed. -Initiate flutter valve and spirometry. -Goal saturation greater 90%, currently on room air. Will initiate oxygen if needed. - White cell count normal at 10.3, 79% neutrophils, kidney function normal with creatinine 0.6. Lactate up to 2.2. - Chest imaging CTA obtained yesterday showing significant consolidation of left upper lobe. Personally reviewed. - Repeat CMP, CBC, magnesium ordered for the morning. Intractable pain related to cancer -Initiate oxycodone 10 mg / 325 mg every 4 hours as needed - IV Dilaudid for severe breakthrough pain -IV Toradol 30 mg every 6 hours as needed -Monitor for toxicity Diabetes - A1c 6.4 in May -Sliding scale insulin with fingersticks ACHS. Full code Regular diet Hold on Lovenox pending potential bronchoscopy tomorrow
--- NOTE | 2023-07-14 18:07 | PC.NURSE ---
Report called to CARLOS Calderon
[2023-07-14] MEDS: LIDOCAINE 5% TRANSDERMAL PATCH 1 EACH TP (18:24)
[2023-07-14 19:25] LABS: Reflex Lactic Add Lactic Reflex
--- NOTE | 2023-07-14 19:29 | PC.NURSE ---
patient admitted to floor 182
[2023-07-14 20:11] LABS: POC Glucose,Bedside 173 (70-110)
[2023-07-14 20:20] LABS: Lactic Acid Follow Up (RFLX 1) 1.1 mmol/L (0.7-2.1)
--- NOTE | 2023-07-14 20:59 | PC.NURSE ---
[facility] called, bed received, 11th floor, tower 1, bed 122, pav [address]
[2023-07-14] MEDS: PIPERCILLIN/TAZO 3.375 GM in 0.9 % SODIUM CHLORIDE 50 ML IV (21:05)
--- NOTE | 2023-07-14 21:32 | P.DS_ITS ---
General Admission date:: 07/14/23 Discharge date: 07/14/23 HPI HPI HPI: Mr. Upton is a 62-year-old male with history of lung cancer, previous pneumonia, obstructive pathology, diabetes. He presented to the ER for the second time in 2 days with intractable pain in his left upper chest. States it radiates through his chest. Occasionally into his arm, worse with breathing and coughing. Has tingling pain on his left chest superficially. His cancer is stage IIIb non-small cell lung cancer followed by Dr. Astudillo at [facility]. He has previously been treated with x-ray therapy, chemo and immunot herapy. Was admitted in May for postobstructive pneumonia and transferred to for interventional pulmonology. Elected not to stent airway due to concern for nonviable parenchyma distal to obstruction. Recent CT performed 2 days ago showed concern for progression of lung disease. Workup in the ER with no fever, white cell count normal, pain however intractable responding to only IV opiates. Stable on room air at this time. Medicine and pulmonology consulted for further management. On evaluation, his pain is doing better after IV Dilaudid. Is unresponsive to oral pain medication. Feels short of breath. Requesting additional nebulizer. Denies nausea, vomiting, syncope. Hospital Course Hospital Course Hospital Course: Mr. Upton is a 62-year-old male with history of lung cancer, previous pneumonia, obstructive pathology, diabetes. He presented to the ER for the second time in 2 days with intractable pain in his left upper chest. States it radiates through his chest. Occasionally into his arm, worse with breathing and coughing. Has tingling pain on his left chest superficially. His cancer is stage IIIb non-small cell lung cancer followed by Dr. Astudillo at [facility]. He has previously been treated with x-ray therapy, chemo and immunotherapy. Was admitted in May for postobstructive pneumonia and transferred to for interventional pulmonology. Elected not to stent airway due to concern for nonviable parenchyma distal to obstruction. Recent CT performed 2 days ago showed concern for progression of lung disease. Workup in the ER with no fever, white cell count normal, pain however intractable responding to only IV opiates. Stable on room air at this time. Medicine and pulmonology consulted for further management. On evaluation, his pain is doing better after IV Dilaudid. Is unresponsive to oral pain medication. Feels short of breath. Requesting additional nebulizer. Denies nausea, vomiting, syncope. had a bed at . initiated transfer Rounded on patient before nurse practitioner. Personally examined and interviewed patient. Agree with exam findings and care plan as documented. Exam Data for Last 24 hours Vital signs and Labs for Last 24 Hours: Temp Pulse Resp BP Pulse Ox O2 Del Method 98.8 F 95 H 22 147/87 H 95 Room Air 07/14/23 20:00 07/14/23 20:00 07/14/23 20:00 07/14/23 20:00 07/14/23 20:00 07/14/23 20:00 Laboratory Results - last 24 hr 07/14/23 15:05: WBC 10.3, RBC 4.77, Hgb 13.2 L, Hct 41.5 L, MCV 86.9, MCH 27.6, MCHC 31.7 L, RDW 15.9, Plt Count 554 H, MPV 7.5, Neut % (Auto) 79.6, Lymph % (Auto) 12.1, [place] % (Auto) 6.9, Eos % (Auto) 1.0, Baso % (Auto) 0.4, Neut # (Auto) 8.2 H, Lymph # (Auto) 1.3, [place] # (Auto) 0.7, Eos # (Auto) 0.1, Baso # (Auto) 0.0, Sodium 135 L, Potassium 3.7, Chloride 98, Carbon Dioxide 30, Anion Gap 10.7, BUN 16 D, Creatinine 0.60 L, Estimated Creat Clear 142, Estimated GFR 137, Est GFR ( Amer) 166, Glucose 201 H, Lactate 2.2 H, Calcium 9.3, Total Bilirubin 0.3, AST 26, ALT 31, Alkaline Phosphatase 80, Total Protein 7.4, Albumin 3.7, Globulin 3.7 H, Albumin/Globulin Ratio 1.0 L 07/14/23 20:03: POC Glucose 173 H 07/14/23 20:08: Lactate 1.1 I & O for Last 24 hours: Intake & Output 07/11/23 07/12/23 07/13/23 07/14/23 23:59 23:59 23:59 23:59 Weight 76.204 kg Microbiology Reports for the Last 24 Hours: Microbiology 05/08/23 08:05 Blood Blood Culture - Preliminary 05/08/23 07:35 Blood Blood Culture - Preliminary 05/08/23 15:40 Sputum - Expectorated Sputum Gram Stain - Final 05/08/23 15:40 Sputum - Expectorated Sputum Sputum Culture - Preliminary Constitutional Constitutional: no acute distress *Routine HEENT Exam Head: Present normocephalic Eye: Present EOMI and PERRL ENT: Present mucous membranes moist *Routine Neck Exam Neck: Present supple; Absent lymphadenopathy *Routine Respiratory Exam Respiratory: Present CTA bilaterally *Routine Cardiovascular Exam Cardiovascular: Present RRR *Routine Abdominal Exam Abdominal: Present soft and normoactive bowel sounds; Absent tenderness *Routine Extremities Exam Extremities: Absent cyanosis, clubbing or edema *Routine Skin Exam Skin: Present warm; Absent rash *Routine Neurological Exam Neurological: Present alert and oriented X3 Results Data Completed and Pending Labs on day of discharge: Labs from last 24 hours 07/14/23 07/14/23 07/14/23 20:08 20:03 15:05 WBC 10.3 RBC 4.77 Hgb 13.2 L Hct 41.5 L MCV 86.9 MCH 27.6 MCHC 31.7 L RDW 15.9 Plt Count 554 H MPV 7.5 Neut % (Auto) 79.6 Lymph % (Auto) 12.1 [place] % (Auto) 6.9 Eos % (Auto) 1.0 Baso % (Auto) 0.4 Neut # (Auto) 8.2 H Lymph # (Auto) 1.3 [place] # (Auto) 0.7 Eos # (Auto) 0.1 Baso # (Auto) 0.0 Sodium 135 L Potassium 3.7 Chloride 98 Carbon Dioxide 30 Anion Gap 10.7 BUN 16 D Creatinine 0.60 L Estimated Creat Clear 142 Estimated GFR 137 Est GFR ( Amer) 166 Glucose 201 H POC Glucose 173 H Lactate 1.1 2.2 H Calcium 9.3 Total Bilirubin 0.3 AST 26 ALT 31 Alkaline Phosphatase 80 Total Protein 7.4 Albumin 3.7 Globulin 3.7 H Albumin/Globulin Ratio 1.0 L DS: Diagnosis Discharge Diagnosis (1) Cancer related pain: Status: Acute Code(s): G89.3 - Neoplasm related pain (acute) (chronic) (2) Obstructive pneumonia: Status: Acute Code(s): J18.9 - Pneumonia, unspecified organism (3) Primary lung cancer: Status: Inactive Code(s): C34.90 - Malignant neoplasm of unspecified part of unspecified bronchus or lung Qualifiers: Laterality: left Qualified Code(s): C34.92 - Malignant neoplasm of unspecified part of left bronchus or lung (4) COPD mixed type: Status: Chronic Code(s): J44.9 - Chronic obstructive pulmonary disease, unspecified (5) Diabetes mellitus: Status: Inactive Code(s): E11.9 - Type 2 diabetes mellitus without complications Qualifiers: Diabetes mellitus complication status: without complication Diabetes mellitus prison insulin use: without bed bug exterminator use Diabetes mellitus type: type 2 Qualified Code(s): E11.9 - Type 2 diabetes mellitus without complications (6) Smoking greater than 30 pack years: Status: Acute Code(s): F17.210 - Nicotine dependence, cigarettes, uncomplicated Meds Home Medications and Allergies Home Medications Medication Instructions Recorded Confirmed Type blood sugar diagnostic (FreeStyle 12/05/22 06/24/23 History Lite Strips) blood-glucose meter (FreeStyle 12/05/22 06/24/23 History Lite Meter kit) lancets 28 gauge (FreeStyle 12/05/22 06/24/23 History Lancets) sodium chloride 3 % for 4 ml inhalation BID 05/30/23 07/14/23 History nebulization acetylcysteine 200 mg/mL (20 %) 1 ml inhalation Q8H #90 mL 06/24/23 07/14/23 Rx solution albuterol sulfate 90 mcg/actuation 2 puff inhalation Q4HP PRN 07/12/23 07/14/23 Rx aerosol inhaler (Ventolin HFA) shortness of breath or wheezing #8.5 grams budesonide 160 mcg-glycopyr 9 2 inh inhalation BID #10.7 grams 07/12/23 07/14/23 Rx mcg-formot 4.8 mcg/actuation HFA inhaler (Breztri Aerosphere) ipratropium 0.5 mg-albuterol 3 mg 3 ml inhalation QIDP PRN shortness 07/12/23 07/14/23 Rx (2.5 mg base)/3 mL nebulization of breath or wheezing #180 mL soln prednisone 50 mg tablet 50 mg PO DAILY 5 days #5 tabs 07/12/23 07/14/23 Rx morphine 15 mg tablet,extended 15 mg PO BID 07/14/23 07/14/23 History release New Prescriptions to Start Prescriptions: Allergies Allergy/AdvReac Type Severity Reaction Status Date / Time chemo Allergy Severe respiratory Uncoded 06/24/23 14:09 distress Discharge Plan Disposition Patient Disposition: Xfer Short-Term Hosp Condition: Fair Discharge Order Discharge Orders: Discharge Order (Routine); Ordered 07/14/23 Ordered By: Kang Walker Follow up Plan Prescriptions/Medication Reconciliation: Continued acetylcysteine 200 mg/mL (20 %) solution 1 ml inhalation Q8H Qty: 90 0RF sodium chloride 3 % solution for nebulization 4 ml inhalation BID Breztri Aerosphere 160-9-4.8 mcg/actuation HFA aerosol inhaler 2 inh inhalation BID Qty: 10.7 11RF ipratropium-albuterol 0.5 mg-3 mg(2.5 mg base)/3 mL solution for nebulization 3 ml inhalation QIDP PRN (Reason: shortness of breath or wheezing) Qty: 180 3RF albuterol sulfate [Ventolin HFA] 90 mcg/actuation HFA aerosol inhaler 2 puff inhalation Q4HP PRN (Reason: shortness of breath or wheezing) Qty: 8.5 11RF (DME) FreeStyle Lite Strips Strip See Rx Instructions .ROUTE .COMPLEX Rx Instructions: USE DIRECTED (DME) blood-glucose meter [FreeStyle Lite Meter] Kit See Rx Instructions .Route Rx Instructions: As directed (DME) lancets [FreeStyle Lancets] 28 gauge misc See Rx Instructions .Route Rx Instructions: As directed prednisone 50 mg tablet 50 mg PO DAILY 5 Days Qty: 5 0RF morphine 15 mg tablet extended release 15 mg PO BID Problem Reconciliation Problems Reviewed?: Yes Patient Discharge Instructions ACTIVITY: Ambulate as tolerated DIET: continue same diet Stand Alone Forms: Transfer Record Providers Primary Care Provider: Leda Hernandez Admit Provider: Dario Storey Attending Provider: Dario Storey
[2023-07-14] MEDS: OXYCODONE 10MG W/APAP 325MG TABLET 1 EACH PO (21:40)
== END 2023-07-14 22:40 | disposition short-term general hospital (02) ==
LOC: ER 15:32 → ICU 15:59
PROVIDERS: Admitting Provider Internal Medicine Adolescent Medicine; Emergency Provider Student in an Organized Health Care Education/Training Program; PCP Nurse Practitioner Family; Visit Provider Internal Medicine Adolescent Medicine
DX: J18.9 Pneumonia, unspecified organism (principal); G89.3 Neoplasm related pain (acute) (chronic); C34.92 Malignant neoplasm of unspecified part of left bronchus or lung; J44.9 Chronic obstructive pulmonary disease, unspecified; E11.9 Type 2 diabetes mellitus without complications; F17.210 Nicotine dependence, cigarettes, uncomplicated; Z79.899 Other long term (current) drug therapy
CPT/HCPCS: 36415; 80053; 82962; 83605; 85025; 87040; 93005; G0378; J2543